=== PATIENT | female | born 1990 | race Asian ===

== ENCOUNTER 2018-10-11 12:24 | Inpatient (IN) | payer OTHER ==
[~2018-10-11] VITALS: Ht 157.5 cm; Wt 91.2 kg
[2018-10-11 12:33] VITALS: BP 107/73
--- NOTE | 2018-10-11 12:45 | NUR ---
ED Nurse Note: pt walked in due to skin rash on her armpit and groin area started 2 years ago, pt was advised by dr tona cortez for flap closure operation, pt complains 6/10 pain but tolerable as verbalized.
--- NOTE | 2018-10-11 13:07 | Emergency Room Report ---
History of Present Illness General Chief Complaint: Pain Source: Patient Present Illness HPI 28-year-old female presents to the emergency department complaining of 6 out of 10 severity pain, swelling, tenderness and irritation to the bilateral axilla x2 weeks. Patient has a history of adenitis suppurativa that has failed multiple outpatient oral antibiotics. She continues to have exacerbations of her symptoms. Denies fevers or chills and denies any significant past medical history or immunocompromise. No Aggravating or relieving factors at this time Allergies: Coded Allergies: No Known Allergies (Unverified , 10/11/18) Patient History Past Medical History: see triage record Past Surgical History: none Pertinent Family History: none Last Menstrual Period: 09/2018 Now: No Immunizations: UTD Reviewed Nursing Documentation: PMH: Agreed; PSxH: Agreed Nursing Documentation-PMH Past Medical History: No History, Except For Review of Systems All Other Systems: negative except mentioned in HPI Physical Exam Vital Signs Date Time Temp Pulse Resp B/P (MAP) Pulse Ox O2 Delivery O2 Flow Rate FiO2 10/11/18 12:33 98.1 67 20 107/73 98 Room Air Sp02 EP Interpretation: reviewed, normal General Appearance: no apparent distress, alert, GCS 15, non-toxic Head: normocephalic, atraumatic Eyes: bilateral eye normal inspection, bilateral eye PERRL ENT: hearing grossly normal, normal voice Neck: full range of motion Respiratory: lungs clear, normal breath sounds, speaking full sentences Cardiovascular #1: regular rate, rhythm Musculoskeletal: back normal, gait/station normal, normal range of motion, non- tender Neurologic: alert, oriented x3, responsive, motor strength/tone normal, sensory intact, speech normal, grossly normal Psychiatric: judgement/insight normal Skin: other - multiple small erythematious indurated abscesses in the axilla bilaterally. NO LAD. some draining purulent d/c. surround erythema is also noted. Lymphatic: no adenopathy Medical Decision Making PA Attestation Dr. Buck is my supervising Physician whom patient management has been discussed with. Diagnostic Impression: Primary Impression: Hidradenitis suppurativa of left axilla Additional Impressions: Hidradenitis suppurativa of right axilla Cellulitis of axillary region ER Course 28-year-old female presents to the emergency department complaining of 6 out of 10 severity pain, swelling, tenderness and irritation to the bilateral axilla x2 weeks. Patient has a history of adenitis suppurativa that has failed multiple outpatient oral antibiotics. She continues to have exacerbations of her symptoms. Denies fevers or chills and denies any significant past medical history or immunocompromise. No Aggravating or relieving factors at this time Ddx considered but are not limited to cellulitis, hydradenitis Suppurativa, fracture, d/L, gout, abscess Vital signs: are WNL, pt. is afebrile H&PE are most consistent with hydradenitis Suppurativa unresponsive to outpatient treatment, and requiring admission for surgical or IV abx management. ORDERS: -Gen. preop labwork: CBC, CMP, PT/PTT, Type and Screen. : Unremarkable. pt. Type A Positive. no leukocytosis. -Blood Cultures: Pending ED INTERVENTIONS: -None required at this time. DISPOSITION: at this time pt. will be admitted to Dr. Ruiz on behalf of Dr. Elkins for hydradenitis Suppurativa. Dr. Ruiz agreed to admit the pt. and to continue pt. care management. Labs Test 10/11/18 13:30 10/11/18 14:30 White Blood Count 9.0 K/UL (4.8-10.8) Red Blood Count 5.37 M/UL (4.20-5.40) Hemoglobin 11.5 G/DL (12.0-16.0) Hematocrit 37.8 % (37.0-47.0) Mean Corpuscular Volume 70 FL (80-99) Mean Corpuscular Hemoglobin 21.4 PG (27.0-31.0) Mean Corpuscular Hemoglobin Concent 30.5 G/DL (32.0-36.0) Red Cell Distribution Width 15.9 % (11.6-14.8) Platelet Count 342 K/UL (150-450) Mean Platelet Volume 7.5 FL (6.5-10.1) Neutrophils (%) (Auto) 70.1 % (45.0-75.0) Lymphocytes (%) (Auto) 21.5 % (20.0-45.0) Monocytes (%) (Auto) 4.8 % (1.0-10.0) Eosinophils (%) (Auto) 2.9 % (0.0-3.0) Basophils (%) (Auto) 0.7 % (0.0-2.0) Prothrombin Time 10.0 SEC (9.30-11.50) Prothromb Time International Ratio 0.9 (0.9-1.1) Activated Partial Thromboplast Time 26 SEC (23-33) Sodium Level 141 MMOL/L (136-145) Potassium Level 4.1 MMOL/L (3.5-5.1) Chloride Level 106 MMOL/L (98-107) Carbon Dioxide Level 23 MMOL/L (21-32) Anion Gap 12 mmol/L (5-15) Blood Urea Nitrogen 12 mg/dL (7-18) Creatinine 0.8 MG/DL (0.55-1.30) Estimat Glomerular Filtration Rate > 60 mL/min (>60) Glucose Level 88 MG/DL (74-106) Calcium Level 9.4 MG/DL (8.5-10.1) Total Bilirubin 0.7 MG/DL (0.2-1.0) Aspartate Amino Transf (AST/SGOT) 22 U/L (15-37) Alanine Aminotransferase (ALT/SGPT) 27 U/L (12-78) Alkaline Phosphatase 78 U/L (46-116) Total Protein 8.8 G/DL (6.4-8.2) Albumin 3.7 G/DL (3.4-5.0) Globulin 5.1 g/dL Albumin/Globulin Ratio 0.7 (1.0-2.7) Urine HCG, Qualitative Negative (NEGATIVE) Last Vital Signs Date Time Temp Pulse Resp B/P (MAP) Pulse Ox O2 Delivery O2 Flow Rate FiO2 10/11/18 12:33 98.1 67 20 107/73 (84) 98 Room Air Disposition: ADMITTED INPATIENT Condition: Connie Jiang Oct 11, 2018 13:07
--- NOTE | 2018-10-11 13:23 | NUR ---
ED Nurse Note: blood drawn and was sent to lab. iv started on left ac. will continue to monitor.
--- NOTE | 2018-10-11 14:00 | NUR ---
ED Nurse Note: pt asked if she can eat, ermd made aware and gave a go signal. pt is easting on upright position. will continue to monitor.
[2018-10-11 14:14] LABS: BASOPHILS % (AUTO) 0.7 % (0.0-2.0); EOSINOPHILS % (AUTO) 2.9 % (0.0-3.0); HEMATOCRIT 37.8 % (37.0-47.0); HEMOGLOBIN 11.5 G/DL (12.0-16.0); LYMPHOCYTES % (AUTO) 21.5 % (20.0-45.0); MEAN CORPUSCULAR VOLUME 70 FL (80-99); MONOCYTES % (AUTO) 4.8 % (1.0-10.0); NEUTROPHILS % (AUTO) 70.1 % (45.0-75.0); PLATELET COUNT 342 K/UL (150-450); RED BLOOD COUNT 5.37 M/UL (4.20-5.40); RED CELL DISTRIBUTION WIDTH 15.9 % (11.6-14.8)
[2018-10-11 14:18] LABS: ANION GAP 12 mmol/L (5-15); BLOOD UREA NITROGEN 12 mg/dL (7-18); CALCIUM 9.4 MG/DL (8.5-10.1); CARBON DIOXIDE 23 MMOL/L (21-32); CHLORIDE 106 MMOL/L (98-107); CREATININE 0.8 MG/DL (0.55-1.30); POTASSIUM 4.1 MMOL/L (3.5-5.1); SODIUM 141 MMOL/L (136-145)
[2018-10-11 14:20] LABS: INR 0.9 (0.9-1.1)
[2018-10-11 14:21] VITALS: BP 107/64
[2018-10-11 14:25] LABS: ALANINE AMINOTRANSFERASE 27 U/L (12-78); ALBUMIN 3.7 G/DL (3.4-5.0); ALBUMIN/GLOBULIN RATIO 0.7 (1.0-2.7); ALKALINE PHOSPHATASE 78 U/L (46-116); ASPARTATE AMINO TRANSFERASE 22 U/L (15-37); BILIRUBIN,TOTAL 0.7 MG/DL (0.2-1.0)
--- NOTE | 2018-10-11 15:00 | NUR ---
ED Nurse Note: pt is aware of the posible hospital admission
[2018-10-11 16:52] VITALS: BP 112/59
--- NOTE | 2018-10-11 16:58 | NUR ---
ED Nurse Note: pt is admitted to the hospital. report given to michelet velazquez.
--- NOTE | 2018-10-11 17:10 | NUR ---
NURSE NOTES: Patient came to unit by anjelica in stable condition. Alert and oriented x4. Complain of pain 6/10 on bilateral axillary. Will contact doctor for pain medication order. Hidradenitis on bilateral axillary and groin area. IV dressing intact and dry. Belonging checked with patient. Bed lowest position. Call light within reach. Will continue to monitor.
--- NOTE | 2018-10-11 17:50 | NUR ---
CASE MANAGEMENT: INITIAL REVIEW 28 YO F PRESENTED TO HOSPITAL FOR SURGERY PMHx: HIDRADENITIS SI:HIDRADENITIS T 98.1 HR 67 RR 20 B/P 107/73 SATS 98% ON RA LABS WNL IS: NO MEDS AT THIS TIME PATIENT ADMITTED TO MED/SURG 10/11/2018 @ 1658 DCP: PATIENT TO BE DISCHARGED TO HOME ONCE MEDICALLY CLEARED. PLAN OF CARE: SURGICAL CONSULT
[2018-10-11] MEDS ORDERED: oxyCODONE HCL/Acetaminophen 5/325mg ORAL PRN (18:30)
[2018-10-11] MEDS ORDERED: Morphine Sulfate 2mg/ml Inj(IV/IM USE ONLY) IVP PRN (18:30)
--- NOTE | 2018-10-11 18:32 | History and Physical ---
History of Present Illness General Date patient seen: Oct 11, 2018 Reason for Hospitalization: Pain and IV antibiotics Present Illness HPI 28 year old female with PMH of hidradenitis suppurativa presents with complaints of b/l axillary and b/l groin pain, swelling, tenderness, purulent discharge and irritation for past 2 weeks. Pt states she has had multiple courses of PO antibiotics with no improvement in symptoms. States usually oxycodone 5mg, helps relieve pain, however for past couple days pain still persist, rated as 6/10, no relieving factors. Pt denies fevers, chills, n/v/c/d , urinary complaints, abdominal complaints, chest pain or SOB. Pt can ambulate > 10 blocks and >4 flights of stairs with no limitations. Allergies: Coded Allergies: No Known Allergies (Unverified , 10/11/18) Patient History History Provided By: Patient Healthcare decision maker Resuscitation status Full Code Advanced Directive on File Review of Systems Constitutional: Reports: no symptoms Eye: Reports: no symptoms ENT: Reports: no symptoms Respiratory: Reports: no symptoms Cardiovascular: Reports: no symptoms Gastrointestinal: Reports: no symptoms Genitourinary: Reports: no symptoms Musculoskeletal: Reports: no symptoms Skin: Reports: lesions, other - swelling, tenderness, purulent discharge in b/ l axillary and groin area Psychiatric: Reports: no symptoms Neurological: Reports: no symptoms Endocrine: Reports: no symptoms Hematologic/Lymphatic: Reports: no symptoms Physical Exam General Appearance: WD/WN, no apparent distress, alert Lines, tubes and drains: peripheral HEENT: normocephalic, atraumatic Neck: non-tender, normal alignment Respiratory/Chest: chest wall non-tender, lungs clear, normal breath sounds Cardiovascular/Chest: normal peripheral pulses Abdomen: normal bowel sounds, non tender, soft Extremities: normal range of motion, non-tender, normal inspection Skin Exam: other - multiple erythematous tender abscess in b/l axillary and groin area. purulent discharge and odor noted. Neurologic: tipple supervisor II-XII grossly normal Last 24 Hour Vital Signs Date Time Temp Pulse Resp B/P (MAP) Pulse Ox O2 Delivery O2 Flow Rate FiO2 10/11/18 17:26 Room Air 10/11/18 16:58 98.1 72 12 112/59 100 Room Air 10/11/18 16:52 72 12 112/59 100 Room Air 10/11/18 14:21 75 15 107/64 98 Room Air 10/11/18 12:33 98.1 67 20 107/73 (84) 98 Room Air 10/11/18 12:33 98.1 67 20 107/73 98 Room Air Laboratory Tests Test 10/11/18 13:30 10/11/18 14:30 White Blood Count 9.0 K/UL (4.8-10.8) Red Blood Count 5.37 M/UL (4.20-5.40) Hemoglobin 11.5 G/DL (12.0-16.0) L Hematocrit 37.8 % (37.0-47.0) Mean Corpuscular Volume 70 FL (80-99) L Mean Corpuscular Hemoglobin 21.4 PG (27.0-31.0) L Mean Corpuscular Hemoglobin Concent 30.5 G/DL (32.0-36.0) L Red Cell Distribution Width 15.9 % (11.6-14.8) H Platelet Count 342 K/UL (150-450) Mean Platelet Volume 7.5 FL (6.5-10.1) Neutrophils (%) (Auto) 70.1 % (45.0-75.0) Lymphocytes (%) (Auto) 21.5 % (20.0-45.0) Monocytes (%) (Auto) 4.8 % (1.0-10.0) Eosinophils (%) (Auto) 2.9 % (0.0-3.0) Basophils (%) (Auto) 0.7 % (0.0-2.0) Prothrombin Time 10.0 SEC (9.30-11.50) Prothromb Time International Ratio 0.9 (0.9-1.1) Activated Partial Thromboplast Time 26 SEC (23-33) Sodium Level 141 MMOL/L (136-145) Potassium Level 4.1 MMOL/L (3.5-5.1) Chloride Level 106 MMOL/L (98-107) Carbon Dioxide Level 23 MMOL/L (21-32) Anion Gap 12 mmol/L (5-15) Blood Urea Nitrogen 12 mg/dL (7-18) Creatinine 0.8 MG/DL (0.55-1.30) Estimat Glomerular Filtration Rate > 60 mL/min (>60) Glucose Level 88 MG/DL (74-106) Calcium Level 9.4 MG/DL (8.5-10.1) Total Bilirubin 0.7 MG/DL (0.2-1.0) Aspartate Amino Transf (AST/SGOT) 22 U/L (15-37) Alanine Aminotransferase (ALT/SGPT) 27 U/L (12-78) Alkaline Phosphatase 78 U/L (46-116) Total Protein 8.8 G/DL (6.4-8.2) H Albumin 3.7 G/DL (3.4-5.0) Globulin 5.1 g/dL Albumin/Globulin Ratio 0.7 (1.0-2.7) L Urine HCG, Qualitative Negative (NEGATIVE) Height (Feet): 5 Height (Inches): 2.00 Weight (Pounds): 190 Medications Current Medications Medications (Trade) Dose Ordered Sig/Lalit Route PRN Reason Start Time Stop Time Status Last Admin Dose Admin Cefazolin Sodium 1 gm/Dextrose 55 ml @ 110 mls/hr Q8HR IVPB 10/11/18 22:00 10/18/18 21:59 UNV Dextrose (Dextrose 50%) 25 ml Q30M PRN IV Hypoglycemia 10/11/18 18:30 11/10/18 18:29 Dextrose (Dextrose 50%) 50 ml Q30M PRN IV Hypoglycemia 10/11/18 18:30 11/10/18 18:29 Morphine Sulfate (Morphine Sulfate) 1 mg Q6HR PRN IVP Severe Breakthru Pain (>7) 10/11/18 18:30 10/18/18 18:29 UNV Oxycodone/ Acetaminophen (Percocet 10/325) 1 tab Q4H PRN ORAL severe pain 10/11/18 18:30 10/18/18 18:29 Oxycodone/ Acetaminophen (Percocet 5-325) 1 tab Q4H PRN ORAL moderate pain 10/11/18 18:30 10/18/18 18:29 Assessment/Plan Assessment/Plan: 28 year old female with PMH of hidradenitis suppurativa presents with complaints of b/l axillary and b/l groin pain, swelling, tenderness, purulent discharge and irritation for past 2 weeks admitted to medicine service for IV antibiotics, pain control and possible surgical intervention. #Hidradenitis suppurativa #Intractable pain #Abscess -Surgury consulted for possible surgical intervention -Failed multiple courses of PO and IV ABX -Ancef started -Pain control with OXY 5/10 for mod/severe with Morphine IV for breakthrough pain -may need pain management consult if pain still not controlled #Medical clearance Based on the patients medical history, and other available ancilliary data, the patient is a LOW risk for an INTERMEDIATE risk procedure. Per the most recent ACC/AHA guidelines, the patient does not need any further cardiopulmonary testing prior to the procedure and there do not appear to be any clear medical contraindications to proceeding with the proposed procedure. Perioperating recommendations include IV Ancef 1G IVPB Post operative recommendations include: -Encourage mobilization/ ambulation -encourage incentive spirometer to optimize pulmonary hygiene -DVT/GI prophylaxis as appropriate -pain control and supportive care Full code TIme of note may not reflect time of encounter Eugenie Cosby MD Oct 11, 2018 18:32
--- NOTE | 2018-10-11 19:30 | NUR ---
NURSE NOTES: Received patient from CORNELIUS Mac. No distress noted, patient alert oriented. at bedside. Bed in low position, locked, side rails up x2, call light within reach. Patient ambulating without difficulty. Saline lock in LAC, patent and intact. Will continue to monitor.
--- NOTE | 2018-10-11 19:30 | NUR ---
HAND-OFF: Report given to Kanids SHIELDS. Patient in stable condition.
[2018-10-11 20:00] VITALS: BP 119/72
[2018-10-11] MEDS: ceFAZolin sod 1 GM in D5W 55 ML IVPB SCH (22:41)
[2018-10-12] VITALS (16 sets, daily range): BP systolic 92–149; BP diastolic 51–77
--- NOTE | 2018-10-12 01:30 | NUR ---
NURSE NOTES: Patient sleeping quietly.
[2018-10-12] MEDS: ceFAZolin sod 1 GM in D5W 55 ML IVPB SCH ×3 (05:49→21:26)
--- NOTE | 2018-10-12 06:03 | NUR ---
NURSE NOTES: Patient awake, alert. No distress noted, denies pain. IV intact, infusing antibiotic at this time.
--- NOTE | 2018-10-12 07:25 | NUR ---
NURSE NOTES:bedside rounds done,pt. asleep,room air,no distress noted.
--- NOTE | 2018-10-12 07:25 | NUR ---
HAND-OFF: Report given to CORNELIUS Issa. Patient sleeping.
--- NOTE | 2018-10-12 09:00 | NUR ---
NURSE NOTES:pt. awake,a/ox4,room air,remains npo for surgery,pt aware.ambulatory,no c/o pain.will continue plan of care.
[2018-10-12] MEDS ORDERED: EPINEPHrine 1mg/1ml Amp ONE (09:38)
[2018-10-12] MEDS ORDERED: Lidocaine 1% 10mg/ml/EPI 0.01mg/ml 50ml INJ ONE (09:39)
[2018-10-12] MEDS ORDERED: Bacitracin 50000 Units Vial ONE (09:39)
[2018-10-12] MEDS ORDERED: Lidocaine 1% 10mg/ml/Epi 0.005mg/ml 30ml vial INJ ONE ×2 (09:39→09:58)
[2018-10-12] MEDS ORDERED: NeoSporin Gu Irrig 1ml Amp IRRIG ONE ×3 (09:40→11:40)
--- NOTE | 2018-10-12 10:24 | NUR ---
NURSE NOTES:to surgery by bed,bedside handoff done with larissa(transporter tech),seen by dr. neely prior to molded goods spot picker.pt.stable.
[2018-10-12] MEDS ORDERED: fentaNYL 100 mcg/2 mL IV ONE (10:59)
[2018-10-12] MEDS ORDERED: Midazolam 2mg/2ml Inj ONE (10:59)
[2018-10-12] MEDS ORDERED: Lidocaine 1% MPF 10mg/ml 5ml ONE (11:01)
[2018-10-12] MEDS ORDERED: Propofol 200mg/20ml IV ONE (11:01)
[2018-10-12] MEDS ORDERED: Sodium Chloride 10ml vial INJ ONE (11:04)
--- NOTE | 2018-10-12 11:06 | Pre-Procedure Note/Attestation ---
Pre-Procedure Note/Attestation Complete Prior to Procedure Planned Procedure: bilateral Procedure Narrative: Debridement of bilateral axillae with chest wall flap elevation. Attestation I attest that I discussed the nature of the procedure; its benefits; risks and complications; and alternatives (and the risks and benefits of such alternatives ), prior to the procedure, with the patient (or the patient's legal quality assurance representative). I attest that, if there was a reasonable possibility of needing a blood transfusion, the patient (or the patient's legal quality assurance representative) was given the [facility] standardized written summary, pursuant to the [place] Blood Safety Act ([place] Health and Safety Code # 1645, as amended). I attest that I re-evaluated the patient just prior to the surgery and that there has been no change in the patient's H&P, except as documented below: Ceci Rodriguez MD Oct 12, 2018 11:06
--- NOTE | 2018-10-12 11:08 | NUR ---
CASE MANAGEMENT:REVIEW 10/12/18 SI: HIDRADENITIS 97.9 79 20 107/70 99% ON RA IS: TO SURGERY FOR: BILATERAL AXILLARY DEBRIDEMENT W/FLAP ELEVATION IV ANCEF Q8HRS PERCOCET PO Q4HRS PRN : TO MED/SURG 3 EAST POST OP
[2018-10-12] MEDS ORDERED: TransDerm Scop 1mg/72HR Patch TDERMAL ONE ×2 (11:12→12:45)
[2018-10-12] MEDS ORDERED: Zemuron 50mg/5ml Inj IV ONE (11:13)
[2018-10-12] MEDS ORDERED: DiphenhydrAMINE 50mg/ml Inj IVP PRN ×2 (11:15→12:45)
[2018-10-12] MEDS ORDERED: Metoclopramide 10mg/2ml Inj IVP PRN ×2 (11:15→12:45)
[2018-10-12] MEDS ORDERED: Rate Change PCA 1 Each MISC PRN (11:15)
[2018-10-12] MEDS ORDERED: PCA Education Pamphlet MISC ONE (11:15)
[2018-10-12] MEDS ORDERED: Zolpidem 5mg tab ORAL PRN (11:15)
[2018-10-12] MEDS ORDERED: Bacitracin 50000 Units Vial IRRIG ONE ×2 (11:16→11:40)
[2018-10-12] MEDS ORDERED: NS Irrig 2000ml IRRIG ONE ×2 (11:17→11:40)
[2018-10-12] MEDS ORDERED: NS Irrig 1000ml ONE (12:00)
[2018-10-12] MEDS ORDERED: Neostigmine 1mg/ml 10ml Inj ONE (12:00)
[2018-10-12] MEDS ORDERED: LR 1000ml ONE (12:00)
[2018-10-12] MEDS ORDERED: Sterile Water Irrig 1000ml IRRIG ONE (12:00)
[2018-10-12] MEDS ORDERED: Morphine Sulfate 10mg/ml Inj ONE (12:13)
[2018-10-12] MEDS ORDERED: Ketorolac 30mg Inj ONE (12:18)
[2018-10-12] MEDS ORDERED: Glycopyrrolate 0.2mg/ml 1ml Vial ONE (12:18)
--- NOTE | 2018-10-12 12:31 | Anethesia Preoperative Eval ---
Anesthesia Pre-op PMH/ROS General Date of Evaluation: Oct 12, 2018 Time of Evaluation: 11:10 Anesthesiologist: Josr ASA Score: ASA 2 Mallampati Score Class I : Soft palate, uvula, fauces, pillars visible Class II: Soft palate, uvula, fauces visible Class III: Soft palate, base of uvula visible Class IV: Only hard plate visible Mallampati Classification: Class II Surgeon: Jennifer Diagnosis: Bilateral axillary HS Surgical Procedure: Excision of bilateral axillary HS Anesthesia History: none Family History: no anesthesia problems Allergies: Coded Allergies: No Known Allergies (Unverified , 10/11/18) Medications: see eMAR Patient NPO?: Yes NPO Date: Oct 12, 2018 NPO Time: 0000 Past Medical History Cardiovascular: Denies: HTN, CAD, CA, valve dz, arrhythmia, other Pulmonary: Denies: asthma, COPD, NICK, other Gastrointestinal/Genitourinary: Denies: GERD, CRI, ESRD, other Neurologic/Psychiatric: Reports: depression/anxiety; Denies: dementia, CVA, TIA, other Endocrine: Denies: DM, hypothyroidism, steroids, other HEENT: Denies: cataract (L), cataract (R), glaucoma, [place] D'ALENE (L), CO[place]UR [place]'ALENE (R), other Hematology/Immune: Denies: anemia, DVT, bleeding disorder, other Musculoskeletal/Integumentary: Denies: OA, RA, DJD, DDD, edema, other Other: obesity PMH Narrative: as above PSxH Narrative: T&A Anesthesia Pre-op Phys. Exam Physician Exam Last Vital Signs Date Time Temp Pulse Resp B/P (MAP) Pulse Ox O2 Delivery O2 Flow Rate FiO2 10/12/18 09:00 Room Air 10/12/18 07:39 97.9 79 20 107/70 (82) 99 Constitutional: NAD Neurologic: CN 2-12 intact Cardiovascular: RRR, no M/R/G Respiratory: CTA Gastrointestinal: S/NT/ND Airway Exam Mallampati Score: Class II MO: full Neck: flexible ROM: full Teeth: intact Dentures: no upper, no lower Anesthesia Pre-op A/P Labs Hematology Test 10/11/18 13:30 White Blood Count 9.0 K/UL (4.8-10.8) Red Blood Count 5.37 M/UL (4.20-5.40) Hemoglobin 11.5 G/DL (12.0-16.0) L Hematocrit 37.8 % (37.0-47.0) Mean Corpuscular Volume 70 FL (80-99) L Mean Corpuscular Hemoglobin 21.4 PG (27.0-31.0) L Mean Corpuscular Hemoglobin Concent 30.5 G/DL (32.0-36.0) L Red Cell Distribution Width 15.9 % (11.6-14.8) H Platelet Count 342 K/UL (150-450) Mean Platelet Volume 7.5 FL (6.5-10.1) Neutrophils (%) (Auto) 70.1 % (45.0-75.0) Lymphocytes (%) (Auto) 21.5 % (20.0-45.0) Monocytes (%) (Auto) 4.8 % (1.0-10.0) Eosinophils (%) (Auto) 2.9 % (0.0-3.0) Basophils (%) (Auto) 0.7 % (0.0-2.0) Coagulation Test 10/11/18 13:30 Prothrombin Time 10.0 SEC (9.30-11.50) Prothromb Time International Ratio 0.9 (0.9-1.1) Activated Partial Thromboplast Time 26 SEC (23-33) Chemistry Test 10/11/18 13:30 Sodium Level 141 MMOL/L (136-145) Potassium Level 4.1 MMOL/L (3.5-5.1) Chloride Level 106 MMOL/L (98-107) Carbon Dioxide Level 23 MMOL/L (21-32) Anion Gap 12 mmol/L (5-15) Blood Urea Nitrogen 12 mg/dL (7-18) Creatinine 0.8 MG/DL (0.55-1.30) Estimat Glomerular Filtration Rate > 60 mL/min (>60) Glucose Level 88 MG/DL (74-106) Calcium Level 9.4 MG/DL (8.5-10.1) Total Bilirubin 0.7 MG/DL (0.2-1.0) Aspartate Amino Transf (AST/SGOT) 22 U/L (15-37) Alanine Aminotransferase (ALT/SGPT) 27 U/L (12-78) Alkaline Phosphatase 78 U/L (46-116) Total Protein 8.8 G/DL (6.4-8.2) H Albumin 3.7 G/DL (3.4-5.0) Globulin 5.1 g/dL Albumin/Globulin Ratio 0.7 (1.0-2.7) L Urine Test Test 10/11/18 14:30 Urine HCG, Qualitative Negative (NEGATIVE) Risk Assessment & Plan Assessment: ASA 2 Plan: GA with ETT PONV prevention Status Change Before Surgery: No Pre-Antibiotics Drug: Ancef 2gr Given Within 1 Hr of Incision: Yes Time Given: 12:02 Gus Ovalles MD Oct 12, 2018 12:31
[2018-10-12] MEDS ORDERED: LR 1000ml 1,000 ML IVLG SCH (12:32)
[2018-10-12] MEDS ORDERED: Ketorolac 30mg Inj IV PRN (12:45)
[2018-10-12] MEDS ORDERED: Midazolam 2mg/2ml Inj IVP PRN (12:45)
[2018-10-12] MEDS ORDERED: Meperidine 50mg/ml Inj(FOR RIGORS ONLY) IV PRN (12:45)
[2018-10-12] MEDS ORDERED: Hydromorphone 0.5mg/0.5ml inj IVP PRN (12:45)
[2018-10-12] MEDS ORDERED: Acetaminophen (Non formulary) 100 ML IV ONE (12:45)
[2018-10-12] MEDS ORDERED: PCA HYDROmorphone 1mg/ml 30 ML IV PRN (13:00)
--- NOTE | 2018-10-12 13:47 | Operative Note - PDOC ---
Operative Note Operative Note Pre-op Diagnosis: Bilateral axillary hidradenitis Procedure: Radical excision of bilateral axillary tissue with chest wall flap elevation Post-op Diagnosis: same as pre-op Surgeon: Jennifer Arcade Technician: Bell Anesthesia: general Specimen: yes Complications: none Estimated Blood Loss: minimal Drains: none Implant(s) used?: No Ceci Rodriguez MD Oct 12, 2018 13:47
--- NOTE | 2018-10-12 13:56 | Immediate Post-Op Evaluation ---
Immediate Post-Op Evalulation Immediate Post-Op Evalulation Procedure: Excision of bilateral axillary HS Date of Evaluation: Oct 12, 2018 Time of Evaluation: 13:54 IV Fluids: 1000 Blood Products: none Estimated Blood Loss: 50 Urinary Output: none Blood Pressure Systolic: 146 Blood Pressure Diastolic: 67 Pulse Rate: 81 Respiratory Rate: 22 O2 Sat by Pulse Oximetry: 99 Temperature (Fahrenheit): 97.5 Pain Score (1-10): 1 Nausea: No Vomiting: No Complications none Patient Status: reacts, patent, extubated, none Hydration Status: adequate Gus Ovalles MD Oct 12, 2018 13:56
--- NOTE | 2018-10-12 15:30 | NUR ---
NURSE NOTES:Received pt. fr.pacu by bed s/p bilateral axillary debridement with flap elevation under general anesthesia,surgical dressing c/d/i.report given by devon velazquez.pt.awake,a/ox4,with 2 liters n/c,saline lock on left ac.intact,with iv fluid and channel rebuilder on left foot #20,per rn,(anesthesiologist)inserted and its okay to use.pain level 4/10,channel rebuilder education provided and understood,moving all extremities.
--- NOTE | 2018-10-12 16:05 | NUR ---
*-* INSURANCE *-* ALL CLINICALS HAVE BEEN FAXED TO: [facility] F:[phone]
--- NOTE | 2018-10-12 16:45 | Consultation ---
DATE OF CONSULTATION: 10/12/2018 CONSULTING PHYSICIAN: Ceci Rodriguez M.D. ADMITTING PHYSICIAN: Dr. Eugenie Perrin. ADMITTING DIAGNOSIS: Bilateral axillary hidradenitis, actively infected. HISTORY OF PRESENT ILLNESS: This is a 28-year-old female, who presented to the emergency room with bilateral axillary pain and drainage along with groin pain and drainage secondary to hidradenitis suppurativa. She had recently been in the emergency room several weeks ago for IV antibiotics and her symptoms are unchanged with continuous pain and drainage from these areas. PAST MEDICAL HISTORY: Significant for hidradenitis suppurativa. PAST SURGICAL HISTORY: Includes previous incisions and drainage of her lesions. ALLERGIES: None. MEDICATIONS: Include previous history of Humira for her hidradenitis suppurativa. PHYSICAL EXAMINATION: GENERAL: The patient is alert and oriented x3. HEART: Regular rate and rhythm. ABDOMEN: Soft, nontender, and nondistended. SKIN: Examination of her bilateral axilla reveals stage III advanced hidradenitis suppurativa with tenderness in the entirety of the axilla with active drainage and cellulitis in between the abscesses. This is present on both sides. She also has evidence of active disease in her bilateral groin regions with tenderness along both groins in particular with worse symptoms on the left groin. ASSESSMENT AND PLAN: This is a 28-year-old female with advanced hidradenitis suppurativa with active infection. She will be taken to the operating room today for radical debridement of the bilateral axillary tissue with a staged elevation of a chest wall thoracodorsal artery flap for eventual reconstruction of her axillary wounds. Given the level of infection present, it is more likely that we would have to delay the closure anywhere from three to five days to allow for some of the infection within the wound to clear by way of IV antibiotics and dressing changes prior to definitive flap inset. This was discussed in detail with the patient. She understands the risks and benefits of the treatment plan and she has agreed to proceed. Ceci Rodriguez M.D. DR: DOMINICK JOB#: [id number] CC: SAMINA
[2018-10-12] MEDS: Docusate 100mg cap ORAL SCH (17:26)
--- NOTE | 2018-10-12 18:00 | Operative Note - Dictated ---
DATE OF OPERATION: 10/12/2018 PREOPERATIVE DIAGNOSIS: Bilateral stage III infected advanced axillary hidradenitis suppurativa. POSTOPERATIVE DIAGNOSIS: Bilateral stage III infected advanced axillary hidradenitis suppurativa. PROCEDURES: 1. Radical excision of left axillary tissue bearing hidradenitis suppurativa. 2. Elevation of a pedicled chest wall thoracodorsal artery country director flap. 3. Radical excision of right axillary tissue bearing infected hidradenitis suppurativa. 4. Elevation of a right-sided thoracodorsal artery pedicled chest wall flap. SURGEON: Ceci Rodriguez M.D. NPS: Marilyn Luu M.D. ANESTHESIA: General. COMPLICATIONS: None. DRAINS: None. DISPOSITION: Stable to the recovery room. INDICATIONS FOR SURGERY: This is a 28-year-old female, who presented to the hospital with advanced hidradenitis suppurativa, which was infected with drainage and purulence and pain in both axillary regions. She was admitted by the medical team and upon my evaluation, I felt that she was an appropriate candidate for radical excision of the infected tissue with staged reconstruction using chest wall flaps. Given the presence of the infection, she was not deemed a suitable candidate for immediate reconstruction. As such, she was consented to undergo radical debridement with staged flap elevation for subsequent reconstruction. She understood the risks and benefits of surgery and agreed to proceed. DETAILS OF THE OPERATION: The patient was brought to the operating room and laid in the supine position on the operating room table. Her bilateral axillae and upper chest were prepped and draped in a sterile and usual fashion. We first began on the left side. Her left axilla had a significant amount of disease with active infection. A marking pen was used to delineate the area of disease at its widest point and measured 15 centimeters and at its smallest point it measured 20 centimeters. Thus this was a 300 square cm of diseased tissue that had to be removed. Corresponding lateral chest wall flap was designed to allow for coverage of this wound. The flap on this side measured 20 x 10 centimeters to allow for soft tissue coverage of the flap of the defect once the defect was created. Once the obregon were made, a #10 blade was used to make the skin incision around the axillary tissue and then the electrocautery was used to further dissect down all the way to the level of the axillary fascia. The specimen was removed en bloc leaving a large axillary defect following hemostasis. The lateral brachial skin as well as the anterior chest wall skin extending into the deltoid region were all elevated to allow for further mobility of the tissue for staged closure once the flap from the chest wall was to be transposed into the defect. Once all the tissues were mobilized, we then turned our attention to elevating the chest wall flap. A #10 blade was then used to make the U-shaped skin incision all the way around the flap. Dissection was carried down to the level of the latissimus muscle fascia. The fascia was then incised and elevated with the pedicled flap all the way to its most proximal point. Once the flap was fully mobilized, we were able to transpose it into the defect and along with the mobilized skin in the periphery of the wound itself, we were able to achieve a tension-free definitive closure of the wound; however, as stated earlier because this was a significantly infected wound, we decided that it would not be cerna to perform immediate reconstruction at this time. As such, the flap was then transposed back to its donor site and once hemostasis was achieved with the remainder of the wound, we placed the Surgicel in the wound bed and bulky dressings were applied on this side with a plan of coming back to the operating room within 3 to 5 days for definitive flap closure with flap inset. We then turned our attention to the right axilla. This had a similar area of disease measuring 16 x 19 centimeters. A corresponding flap as was done on the other side was designed on the lateral chest wall. A #10 blade was used to make the skin incision around the infected axillary tissue. Dissection was carried down with the electrocautery down to the axillary fascia. The specimen was removed en bloc. Similarly, the brachial as well as deltoid and anterior chest wall skin flaps were elevated to allow for further mobility of the tissue for eventual entral closure and once hemostasis was achieved, a lateral chest wall flap was then elevated based on the design that was created. This one measured also 10 x 18 centimeters. A #10 blade was used to make a skin incision. Electrocautery was then used to dissect down to the level of the latissimus muscle fascia. The fascia was incised and elevated with a thoracodorsal artery country director flap. Once the flap was fully mobilized, noted to fit in well into the defect as was done on the other side, hemostasis was achieved. Surgicel was then placed. The flap was then put back into its donor site with a plan on coming back to the operating room in 3 to 5 days for definitive flap inset. Bulky dressings were also applied on this side and all sponge counts were correct at the end of the case. There was no complications. Ceci Rodriguez M.D. DR: MAXIMO JOB#: [id number] CC: SAMINA
[2018-10-12] MEDS: PCA shift volume MISC SCH (19:17)
--- NOTE | 2018-10-12 19:22 | NUR ---
HAND-OFF: Report given to PATY SHIELDS.PT.STABLE..
--- NOTE | 2018-10-12 19:23 | NUR ---
NURSE NOTES: Received report from CORNELIUS Issa. Patient alert, oriented, bed in low position, locked, side rails up x2, call light within reach. at bedside. LEGAL COUNSEL settings double checked with offgoing shift nurse. No complaints at this time. Encouraged PO fluids. Will continue to monitor.
[2018-10-12] MEDS ORDERED: Tubing IV Secondary IV ONE (19:26)
[2018-10-12] MEDS ORDERED: NS 275ml ONE (19:26)
--- NOTE | 2018-10-12 20:29 | General Progress Note ---
Assessment/Plan Assessment/Plan: 28 year old female with PMH of hidradenitis suppurativa presents with complaints of b/l axillary and b/l groin pain, swelling, tenderness, purulent discharge and irritation for past 2 weeks admitted to medicine service for IV antibiotics, pain control and possible surgical intervention. #Hidradenitis suppurativa #Intractable pain #Abscess -Surgury consult appreciated - Plan for radical excision of B/L axillary tissue bearing hidradenitis suppurativa today -Failed multiple courses of PO and IV ABX -Ancef started -Pain control with OXY 5/10 for mod/severe with Morphine IV for breakthrough pain -may need pain management consult if pain still not controlled #Medical clearance Based on the patients medical history, and other available ancilliary data, the patient is a LOW risk for an INTERMEDIATE risk procedure. Per the most recent ACC/AHA guidelines, the patient does not need any further cardiopulmonary testing prior to the procedure and there do not appear to be any clear medical contraindications to proceeding with the proposed procedure. Perioperating recommendations include IV Ancef 1G IVPB Post operative recommendations include: -Encourage mobilization/ ambulation -encourage incentive spirometer to optimize pulmonary hygiene -DVT/GI prophylaxis as appropriate -pain control and supportive care Full code TIme of note may not reflect time of encounter Subjective Date patient seen: Oct 12, 2018 Time patient seen: 08:00 ROS Limited/Unobtainable: No Allergies: Coded Allergies: No Known Allergies (Unverified , 10/11/18) Subjective No acute overnight events, states she feels well, just a little nervous about upcoming procedure. has no other complaints, pain adequately controlled with current regimen Objective Last 24 Hour Vital Signs Date Time Temp Pulse Resp B/P (MAP) Pulse Ox O2 Delivery O2 Flow Rate FiO2 10/12/18 18:00 98.2 66 20 138/58 (84) 99 10/12/18 17:00 98.0 83 20 116/67 (83) 99 10/12/18 16:00 98.0 68 20 141/70 (93) 99 10/12/18 15:30 97.8 69 20 133/76 (95) 99 10/12/18 15:30 17 10/12/18 15:30 17 10/12/18 15:15 97.5 60 19 146/57 100 Nasal Cannula 3 10/12/18 15:13 17 10/12/18 15:13 67 15 134/66 100 Nasal Cannula 3 10/12/18 15:00 18 10/12/18 15:00 75 16 142/62 100 Nasal Cannula 3 10/12/18 14:45 61 14 144/64 100 Nasal Cannula 3 10/12/18 14:45 19 10/12/18 14:30 16 10/12/18 14:30 64 19 149/69 100 Simple Mask 6 10/12/18 14:15 15 10/12/18 14:15 68 17 144/61 100 Simple Mask 6 10/12/18 14:04 17 10/12/18 14:00 78 20 142/77 100 Simple Mask 6 10/12/18 13:56 81 22 99 10/12/18 13:50 97.6 80 22 147/76 100 Simple Mask 6 10/12/18 09:00 Room Air 10/12/18 07:39 97.9 79 20 107/70 (82) 99 10/12/18 04:00 98.1 67 18 92/51 (65) 96 10/12/18 00:00 98.2 93 18 122/75 (91) 99 10/11/18 21:00 Room Air Intake and Output 10/11/18 10/12/18 19:00 07:00 Intake Total 350 ml Balance 350 ml Intake Oral 350 ml # Voids 3 Height (Feet): 5 Height (Inches): 2.00 Weight (Pounds): 203 Objective General Appearance: WD/WN, no apparent distress, alert Lines, tubes and drains: peripheral HEENT: normocephalic, atraumatic Neck: non-tender, normal alignment Respiratory/Chest: chest wall non-tender, lungs clear, normal breath sounds Cardiovascular/Chest: normal peripheral pulses Abdomen: normal bowel sounds, non tender, soft Extremities: normal range of motion, non-tender, normal inspection Skin Exam: other - multiple erythematous tender abscess in b/l axillary and groin area. purulent discharge and odor noted. 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
[2018-10-12] MEDS: Heparin 5000 units/ml inj SUBQ SCH (21:29)
--- NOTE | 2018-10-12 22:52 | NUR ---
NURSE NOTES: Small section of left underarm dressing came off, noticed serous sanguineous discharge, no active bleeding. Dressing reinforced. Patient tolerated well. Right underarm dressing intact and dry. Will continue to monitor.
--- NOTE | 2018-10-12 23:14 | NUR ---
NURSE NOTES: Patient used bedpan, voided large amount.
[2018-10-13] VITALS: BP 130/63
--- NOTE | 2018-10-13 00:10 | NUR ---
NURSE NOTES: Patient feeling well. States pain is 0/10 at this time. In good spirits, dressing intact, feels comfortable. Encouraged to call as needed.
[2018-10-13 04:00] VITALS: BP 113/61
[2018-10-13 06:32] LABS: BASOPHILS % (AUTO) 0.5 % (0.0-2.0); EOSINOPHILS % (AUTO) 3.6 % (0.0-3.0); HEMATOCRIT 31.9 % (37.0-47.0); HEMOGLOBIN 9.9 G/DL (12.0-16.0); MEAN CORPUSCULAR VOLUME 70 FL (80-99); NEUTROPHILS % (AUTO) 67.9 % (45.0-75.0); PLATELET COUNT 281 K/UL (150-450); RED BLOOD COUNT 4.53 M/UL (4.20-5.40); RED CELL DISTRIBUTION WIDTH 16.4 % (11.6-14.8); WHITE BLOOD COUNT 7.9 K/UL (4.8-10.8)
[2018-10-13] MEDS: ceFAZolin sod 1 GM in D5W 55 ML IVPB SCH ×3 (06:38→21:40)
[2018-10-13 06:45] LABS: ANION GAP 5 mmol/L (5-15); BLOOD UREA NITROGEN 8 mg/dL (7-18); CALCIUM 8.4 MG/DL (8.5-10.1); CARBON DIOXIDE 23 MMOL/L (21-32); CHLORIDE 108 MMOL/L (98-107); CREATININE 0.8 MG/DL (0.55-1.30); POTASSIUM 3.7 MMOL/L (3.5-5.1); SODIUM 136 MMOL/L (136-145)
[2018-10-13] MEDS: PCA shift volume MISC SCH ×2 (07:08→19:00)
--- NOTE | 2018-10-13 07:10 | NUR ---
NURSE NOTES:Bedside rounds with night nurse(debbie velazquez.)pt.awake,a/ox4,room air,on quality coordinator dilaudid for pain mgt. pain level 4/10,bilateral axilla dressing c/d/i.will continue plan of care.
--- NOTE | 2018-10-13 07:10 | NUR ---
HAND-OFF: Report given to CORNELIUS Issa. NEGOTIATOR reviewed with oncoming nurse.
[2018-10-13 08:00] VITALS: BP 123/55
[2018-10-13] MEDS: Docusate 100mg cap ORAL SCH ×2 (08:21→18:02)
[2018-10-13] MEDS: Heparin 5000 units/ml inj SUBQ SCH ×2 (08:23→21:35)
[2018-10-13 12:00] VITALS: BP 130/55
--- NOTE | 2018-10-13 12:21 | General Progress Note ---
Progress Note Progress Note Pt seen and examined. Doing well. Pain well controlled. Dressings in place. Will go to OR on Wednesday for flap inset. Awating path and wound cultures. ID to see patient. MD Jennifer Carlson Amir MD Oct 13, 2018 12:21
--- NOTE | 2018-10-13 12:34 | 48 Hour Post Anesthesia Eval ---
Post Anesthesia Evaluation Procedure: Excision of bilateral axillary HS Date of Evaluation: Oct 13, 2018 Time of Evaluation: 12:33 Blood Pressure Systolic: 124 0: 76 Pulse Rate: 68 Respiratory Rate: 20 Temperature (Fahrenheit): 97.6 O2 Sat by Pulse Oximetry: 98 Airway: patent Nausea: No Vomiting: No Pain Intensity: 2 Hydration Status: adequate Cardiopulmonary Status: stable Mental Status/LOC: patient returned to baseline Follow-up Care/Observations: n/a Post-Anesthesia Complications: none Follow-up care needed: N/A Gus Ovalles MD Oct 13, 2018 12:34
--- NOTE | 2018-10-13 12:54 | NUR ---
NURSE NOTES:FOR PT CHRISTINE (PT) MADE AWARE.
--- NOTE | 2018-10-13 13:00 | Infectious Diseases Prog Note ---
Assessment/Plan Assessment/Plan Full dictated consult to follow: A) 1) bilateral axilla infected hidradenitis suppurativa with bilateral infected wounds 2) s/p hidradenitis excision and debridement 3) allergies - nkda P) 1) continue iv cefazolin 2) f/u on cultures 3) surgery note reviewed - for flap next week 4) continue treatment per primary care team 5) thank you Subjective Allergies: Coded Allergies: No Known Allergies (Unverified , 10/11/18) Objective Vital Signs Last 24 Hour Vital Signs Date Time Temp Pulse Resp B/P (MAP) Pulse Ox O2 Delivery O2 Flow Rate FiO2 10/13/18 12:34 68 20 98 10/13/18 12:00 98.6 63 18 130/55 (80) 99 10/13/18 12:00 18 10/13/18 08:00 97.2 65 18 123/55 (77) 98 10/13/18 08:00 18 10/13/18 07:18 Room Air 10/13/18 04:00 98.7 81 20 113/61 (78) 97 10/13/18 04:00 18 10/13/18 00:00 98.0 75 20 130/63 (85) 99 10/13/18 00:00 16 10/12/18 21:00 Room Air 10/12/18 20:00 98.0 71 18 123/64 (83) 98 10/12/18 20:00 18 10/12/18 18:00 98.2 66 20 138/58 (84) 99 10/12/18 17:00 98.0 83 20 116/67 (83) 99 10/12/18 16:00 98.0 68 20 141/70 (93) 99 10/12/18 15:30 97.8 69 20 133/76 (95) 99 10/12/18 15:30 17 10/12/18 15:30 17 10/12/18 15:15 97.5 60 19 146/57 100 Nasal Cannula 3 10/12/18 15:13 17 10/12/18 15:13 67 15 134/66 100 Nasal Cannula 3 10/12/18 15:00 18 10/12/18 15:00 75 16 142/62 100 Nasal Cannula 3 10/12/18 14:45 61 14 144/64 100 Nasal Cannula 3 10/12/18 14:45 19 7/10/19 14:30 16 10/12/18 14:30 64 19 149/69 100 Simple Mask 6 10/12/18 14:15 15 10/12/18 14:15 68 17 144/61 100 Simple Mask 6 10/12/18 14:04 17 10/12/18 14:00 78 20 142/77 100 Simple Mask 6 10/12/18 13:56 81 22 99 10/12/18 13:50 97.6 80 22 147/76 100 Simple Mask 6 Height (Feet): 5 Height (Inches): 2.00 Weight (Pounds): 203 Microbiology Date/Time Source Procedure Growth Status 10/11/18 13:58 Blood Blood Culture - Preliminary NO GROWTH AFTER 24 HOURS Resulted 10/11/18 13:58 Blood Blood Culture - Preliminary NO GROWTH AFTER 24 HOURS Resulted 10/12/18 12:58 Axilla Right Gram Stain - Final Resulted 10/12/18 12:58 Axilla Right Aerobic Culture - Preliminary NO GROWTH Resulted 10/12/18 12:58 Axilla Right Anaerobic Culture Pending Resulted Laboratory Tests Test 10/13/18 05:55 White Blood Count 7.9 K/UL (4.8-10.8) Red Blood Count 4.53 M/UL (4.20-5.40) Hemoglobin 9.9 G/DL (12.0-16.0) L Hematocrit 31.9 % (37.0-47.0) L Mean Corpuscular Volume 70 FL (80-99) L Mean Corpuscular Hemoglobin 21.8 PG (27.0-31.0) L Mean Corpuscular Hemoglobin Concent 30.9 G/DL (32.0-36.0) L Red Cell Distribution Width 16.4 % (11.6-14.8) H Platelet Count 281 K/UL (150-450) Mean Platelet Volume 7.6 FL (6.5-10.1) Neutrophils (%) (Auto) 67.9 % (45.0-75.0) Lymphocytes (%) (Auto) 23.0 % (20.0-45.0) Monocytes (%) (Auto) 5.0 % (1.0-10.0) Eosinophils (%) (Auto) 3.6 % (0.0-3.0) H Basophils (%) (Auto) 0.5 % (0.0-2.0) Sodium Level 136 MMOL/L (136-145) Potassium Level 3.7 MMOL/L (3.5-5.1) Chloride Level 108 MMOL/L (98-107) H Carbon Dioxide Level 23 MMOL/L (21-32) Anion Gap 5 mmol/L (5-15) Blood Urea Nitrogen 8 mg/dL (7-18) Creatinine 0.8 MG/DL (0.55-1.30) Estimat Glomerular Filtration Rate > 60 mL/min (>60) Glucose Level 106 MG/DL (74-106) Calcium Level 8.4 MG/DL (8.5-10.1) L Current Medications Medications (Trade) Dose Ordered Sig/Lalit Route PRN Reason Start Time Stop Time Status Last Admin Dose Admin Acetaminophen (Tylenol) 650 mg Q4H PRN ORAL FEVER 10/12/18 11:15 11/11/18 11:14 10/13/18 08:25 Cefazolin Sodium 1 gm/Dextrose 55 ml @ 110 mls/hr Q8HR IVPB 10/11/18 22:00 10/18/18 21:59 10/13/18 06:38 Dextrose (Dextrose 50%) 25 ml Q30M PRN IV Hypoglycemia 10/11/18 18:30 11/10/18 18:29 Dextrose (Dextrose 50%) 50 ml Q30M PRN IV Hypoglycemia 10/11/18 18:30 11/10/18 18:29 Diphenhydramine HCl (Benadryl) 12.5 mg Q6H PRN IVP Itching/Pruritis 10/12/18 11:15 11/11/18 11:14 Docusate Sodium (Colace) 100 mg TWICE A DAY ORAL 10/12/18 18:00 11/11/18 17:59 10/13/18 08:21 Heparin Sodium (Porcine) (Heparin 5000 units/ml) 5,000 units EVERY 12 HOURS SUBQ 10/12/18 21:00 11/11/18 20:59 10/13/18 08:23 Hydromorphone HCl 30 ml @ 0 mls/hr Q24H PRN IV For Pain 10/12/18 13:00 10/14/18 12:59 10/12/18 14:04 Metoclopramide HCl (Reglan) 10 mg Q6H PRN IVP Nausea & Vomiting 10/12/18 11:15 11/11/18 11:14 Miscellaneous Medication (TIRE STRIPPER Rate Change) 1 ea DAILY PRN MISC rate change 10/12/18 11:15 10/14/18 11:14 Miscellaneous Medication (TIRE STRIPPER shift volume) 1 ea Q12HR@0700,1900 MISC 10/12/18 19:00 10/14/18 18:59 10/13/18 07:08 Ondansetron HCl (Zofran) 4 mg Q6H PRN IVP Nausea & Vomiting 10/12/18 11:15 11/11/18 11:14 Zolpidem Tartrate (Ambien) 5 mg DAILYPRN PRN ORAL Insomnia 10/12/18 11:15 10/19/18 11:14 Nate Gomes MD Oct 13, 2018 13:00
--- NOTE | 2018-10-13 13:25 | NUR ---
NURSE NOTES: Report received from Maegan SHIELDS, rounds made. Patient resting in semi-fowlers position in bed. IVF/SPECIFICATION MANAGER (Dilaudid) infusing to left foot IV site intact, patent. Bilateral axillary/upper back dressing, intact, reinforced. No distress on RA. Tolerating SPECIFICATION MANAGER pump at this time. Call light in reach, bed in lowest position, will continue to monitor.
--- NOTE | 2018-10-13 13:47 | NUR ---
HAND-OFF: Report given to JULIO SHIELDS.RE:CONTINUITY OF CARE.BEDSIDE ROUNDS DONE.PT. STABLE.
--- NOTE | 2018-10-13 14:54 | NUR ---
CASE MANAGEMENT:REVIEW 10/13/18 SI: POD #1 RADICAL EXCISION OF LT AXILLARY TISSUE 98.6 63 18 130/55 99% ON RA H/H-9.9/31.9 IS: IV ANCEF Q8HRS HEPARIN SQ Q12 LEGAL INVESTIGATOR DILAUDID : MED/SURG STATUS 3 [facility]
[2018-10-13 16:00] VITALS: BP 116/55
--- NOTE | 2018-10-13 16:08 | NUR ---
*-* INSURANCE *-* ALL CLINICALS [facility] BE[facility] F:[phone]
--- NOTE | 2018-10-13 19:50 | NUR ---
HAND-OFF: Report given to Skip SHIELDS/Ekaterina SHIELDS.
[2018-10-13 20:00] VITALS: BP 129/80
--- NOTE | 2018-10-13 20:00 | NUR ---
NURSE NOTES: Receive a report from CORNELIUS Soler. Done rounds. Pt is awake alert. No acute distress noted. Expresses that pain tolerating with YOUTH MINISTRY DIRECTOR pump. SCDs on with Heparin treatment for DVT prophylaxis. Will continue to monitor.
--- NOTE | 2018-10-13 20:33 | General Progress Note ---
Assessment/Plan Assessment/Plan: 28 year old female with PMH of hidradenitis suppurativa presents with complaints of b/l axillary and b/l groin pain, swelling, tenderness, purulent discharge and irritation for past 2 weeks admitted to medicine service for IV antibiotics, pain control and possible surgical intervention. #Hidradenitis suppurativa S/P radical excision of B/L axillary tissue bearing hidradenitis suppurativa POD1 #Intractable pain #Abscess -Surgury consult appreciated - -Failed multiple courses of PO and IV ABX -Cont Ancef -Pain control with RELATIONSHIP COUNSELOR -awaiting path and wound cultures - Continue excellent postoperative care - Encourage mobilization/ambulation - Encourage incentive spirometry to optimize pulmonary hygiene - DVT/GI prophylaxis as appropriate - Pain control and supportive care -ID consulted -Will go to OR on Wednesday for flap inset. Full code TIme of note may not reflect time of encounter Subjective Date patient seen: Oct 13, 2018 Allergies: Coded Allergies: No Known Allergies (Unverified , 10/11/18) Subjective No acute overnight events, pain well controlled wiht RELATIONSHIP COUNSELOR pump, has no complaints , denies nausea, vomiting, fevers, chills, abdominal complaints or urinary complaints. Objective Last 24 Hour Vital Signs Date Time Temp Pulse Resp B/P (MAP) Pulse Ox O2 Delivery O2 Flow Rate FiO2 10/13/18 12:34 68 20 98 10/13/18 12:00 98.6 63 18 130/55 (80) 99 10/13/18 12:00 18 10/13/18 08:00 97.2 65 18 123/55 (77) 98 10/13/18 08:00 18 10/13/18 07:18 Room Air 10/13/18 04:00 98.7 81 20 113/61 (78) 97 10/13/18 04:00 18 10/13/18 00:00 98.0 75 20 130/63 (85) 99 10/13/18 00:00 16 10/12/18 21:00 Room Air Intake and Output 10/12/18 10/13/18 19:00 07:00 Intake Total 490 ml 560 ml Output Total 350 ml 1000 ml Balance 140 ml -440 ml Intake Oral 240 ml 560 ml IV Total 250 ml Output Urine Total 300 ml 1000 ml Estimated Blood Loss 50 ml # Voids 1 Laboratory Tests 7/11/19 05:55: White Blood Count 7.9, Red Blood Count 4.53, Hemoglobin 9.9L, Hematocrit 31.9L, Mean Corpuscular Volume 70L, Mean Corpuscular Hemoglobin 21.8L, Mean Corpuscular Hemoglobin Concent 30.9L, Red Cell Distribution Width 16.4H, Platelet Count 281, Mean Platelet Volume 7.6, Neutrophils (%) (Auto) 67.9, Lymphocytes (%) (Auto) 23.0, Monocytes (%) (Auto) 5.0, Eosinophils (%) (Auto) 3.6H, Basophils (%) (Auto) 0.5, Sodium Level 136, Potassium Level 3.7, Chloride Level 108H, Carbon Dioxide Level 23, Anion Gap 5, Blood Urea Nitrogen 8, Creatinine 0.8, Estimat Glomerular Filtration Rate > 60, Glucose Level 106, Calcium Level 8.4L Height (Feet): 5 Height (Inches): 2.00 Weight (Pounds): 203 Objective General Appearance: WD/WN, no apparent distress, alert Lines, tubes and drains: peripheral HEENT: normocephalic, atraumatic Neck: non-tender, normal alignment Respiratory/Chest: chest wall non-tender, lungs clear, normal breath sounds Cardiovascular/Chest: normal peripheral pulses Abdomen: normal bowel sounds, non tender, soft Extremities: normal range of motion, non-tender, normal inspection Skin Exam: other - b/l axillary with dressing CDI 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
--- NOTE | 2018-10-13 23:30 | NUR ---
NURSE NOTES: Pt is awake and alert. KLEIN relieved after taking Tylenol 325mg 2 t po and ice pack. Keep axillary dressing on and noted more discharge on right side. Tolerating discomfort on both groin area scattered old blister sites. Provide perineal care for comfort. Keep dry and clean. Left foot IV site intact, patent without infiltration. Will continue to monitor.
[2018-10-14] VITALS: BP 135/78
[2018-10-14 04:00] VITALS: BP 133/66
[2018-10-14] MEDS: ceFAZolin sod 1 GM in D5W 55 ML IVPB SCH ×3 (05:31→21:09)
[2018-10-14 06:15] LABS: BASOPHILS % (AUTO) 0.8 % (0.0-2.0); EOSINOPHILS % (AUTO) 4.6 % (0.0-3.0); HEMATOCRIT 32.1 % (37.0-47.0); HEMOGLOBIN 9.7 G/DL (12.0-16.0); LYMPHOCYTES % (AUTO) 29.8 % (20.0-45.0); MEAN CORPUSCULAR VOLUME 71 FL (80-99); MONOCYTES % (AUTO) 6.7 % (1.0-10.0); NEUTROPHILS % (AUTO) 58.1 % (45.0-75.0); PLATELET COUNT 285 K/UL (150-450); RED BLOOD COUNT 4.54 M/UL (4.20-5.40); RED CELL DISTRIBUTION WIDTH 16.5 % (11.6-14.8); WHITE BLOOD COUNT 7.7 K/UL (4.8-10.8)
[2018-10-14 07:06] LABS: ANION GAP 10 mmol/L (5-15); BLOOD UREA NITROGEN 10 mg/dL (7-18); CALCIUM 8.6 MG/DL (8.5-10.1); CARBON DIOXIDE 24 MMOL/L (21-32); CHLORIDE 105 MMOL/L (98-107); CREATININE 0.8 MG/DL (0.55-1.30); POTASSIUM 3.7 MMOL/L (3.5-5.1); SODIUM 138 MMOL/L (136-145)
--- NOTE | 2018-10-14 07:20 | NUR ---
HAND-OFF: Report given to CORNELIUS Clarke. Done round.
[2018-10-14] MEDS: PCA shift volume MISC SCH (07:28)
[2018-10-14 08:00] VITALS: BP 132/61
--- NOTE | 2018-10-14 09:15 | NUR ---
PT EVALUATION NOTE Patient seen for initial evaluation. Patient currently at supervised level for all functional mobility including bed mobility, transfers and ambulation without an assistive device. Skilled inpatient PT intervention not warranted, patient discharged from PT. Patient cleared to ambulate with nursing staff supervision in Tricia thornton RN notified. Anticipate discharge home with family assistance as needed once medically cleared by MD. No DME needs identified at this time. Addendum: 10/14/18 at 1020 by DEANDRA WALSH PT Amended: Links added.
[2018-10-14] MEDS: Docusate 100mg cap ORAL SCH ×2 (10:06→18:58)
[2018-10-14] MEDS: Heparin 5000 units/ml inj SUBQ SCH ×2 (10:06→21:17)
--- NOTE | 2018-10-14 10:31 | NUR ---
NURSE NOTES: Discussed with Dr. Cosby current pain medication ordered/PRN as well and that patient is not using ELECTRONIC SCIENCE TEACHER (Dilaudid) often and that it does not seem as effective from when she first started on it. See orders.
[2018-10-14] MEDS ORDERED: HYDROmorphone 1mg/ml Carpuject IVP PRN (11:00)
--- NOTE | 2018-10-14 11:08 | NUR ---
CASE MANAGEMENT:REVIEW 10/14/18 SI: POD #2 RADICAL EXCISION OF LT AXILLARY TISSUE 98.8 67 18 132/61 96% ON RA H/H-9.7/32.1 IS: IV ANCEF Q8HRS IV DILAUDID Q4HRS PRN OXYCODONE PO Q6HRS PRN : MED/SURG STATUS 3 [facility] PLAN: DRESSING CHANGE BID
[2018-10-14 12:00] VITALS: BP 117/74
[2018-10-14] MEDS: oxyCODONE 15mg IR tab ORAL PRN ×2 (12:28→18:57)
--- NOTE | 2018-10-14 13:45 | NUR ---
NURSE NOTES: Medicated patient 30 minutes prior to dressing change. Bilateral axillary dressing change done as ordered per Dr. Rodriguez. Patient sitting upright at bedside for dressing change. Removed old dressing, pat dry, wound bed moist, pink, slight bleeding noted, no odor, wet to dry dressing (NS) with fanfold kerlix applied to each axillary, covered with ABD pad, secured with medipore tape. Patient tolerated well. Reports dressing feels comfortable and overall dressing change process was better than she expected. Additional wound care supplies at bedside ready for shift production supervisor. Patient up to bathroom, provided self groin/thelma-care to hidradenitis. Encouraged patient to ambulate in halls as tolerated. Patient and spouse ambulated in halls after dressing change, gait steady, tolerated well. Will continue to monitor.
--- NOTE | 2018-10-14 15:35 | NUR ---
*-* INSURANCE *-* ALL CLINICALS HAVE BEEN FAXED TO: [facility] F:[phone]
[2018-10-14 16:00] VITALS: BP 143/85
--- NOTE | 2018-10-14 16:10 | Infectious Diseases Prog Note ---
Assessment/Plan Assessment/Plan Full dictated consult dictated: A) 1) bilateral axilla infected hidradenitis suppurativa with bilateral infected wounds 2) s/p hidradenitis excision and debridement 3) allergies - nkda P) 1) continue iv cefazolin 2) f/u on cultures 3) surgery note reviewed - for flap next week 4) continue treatment per primary care team 5) will f/u Subjective Constitutional: Denies: fever Respiratory: Denies: shortness of breath Cardiovascular: Denies: chest pain, palpitations Gastrointestinal/Abdominal: Denies: nausea, vomiting, diarrhea Allergies: Coded Allergies: No Known Allergies (Unverified , 10/11/18) Objective Vital Signs Last 24 Hour Vital Signs Date Time Temp Pulse Resp B/P (MAP) Pulse Ox O2 Delivery O2 Flow Rate FiO2 10/14/18 12:00 17 10/14/18 08:00 98.8 67 19 132/61 (84) 96 10/14/18 08:00 18 10/14/18 04:00 18 10/14/18 04:00 98.4 69 19 133/66 (88) 99 10/14/18 00:00 98.1 81 18 135/78 (97) 98 10/14/18 00:00 18 10/13/18 21:00 Room Air 10/13/18 20:00 18 10/13/18 20:00 99.9 89 18 129/80 (96) 98 Height (Feet): 5 Height (Inches): 2.00 Weight (Pounds): 203 General Appearance: no acute distress HEENT: normocephalic, atraumatic, anicteric, mucous membranes moist Respiratory/Chest: lungs clear, normal breath sounds, no respiratory distress, no accessory muscle use Cardiovascular: normal rate, regular rhythm, no gallop/murmur Abdomen: normal bowel sounds, soft, non tender, no organomegaly Microbiology Date/Time Source Procedure Growth Status 10/12/18 12:58 Axilla Right Gram Stain - Final Resulted 10/12/18 12:58 Axilla Right Aerobic Culture - Preliminary NO GROWTH Resulted 10/12/18 12:58 Axilla Right Anaerobic Culture Pending Resulted Laboratory Tests Test 10/14/18 05:50 White Blood Count 7.7 K/UL (4.8-10.8) Red Blood Count 4.54 M/UL (4.20-5.40) Hemoglobin 9.7 G/DL (12.0-16.0) L Hematocrit 32.1 % (37.0-47.0) L Mean Corpuscular Volume 71 FL (80-99) L Mean Corpuscular Hemoglobin 21.4 PG (27.0-31.0) L Mean Corpuscular Hemoglobin Concent 30.3 G/DL (32.0-36.0) L Red Cell Distribution Width 16.5 % (11.6-14.8) H Platelet Count 285 K/UL (150-450) Mean Platelet Volume 6.9 FL (6.5-10.1) Neutrophils (%) (Auto) 58.1 % (45.0-75.0) Lymphocytes (%) (Auto) 29.8 % (20.0-45.0) Monocytes (%) (Auto) 6.7 % (1.0-10.0) Eosinophils (%) (Auto) 4.6 % (0.0-3.0) H Basophils (%) (Auto) 0.8 % (0.0-2.0) Sodium Level 138 MMOL/L (136-145) Potassium Level 3.7 MMOL/L (3.5-5.1) Chloride Level 105 MMOL/L (98-107) Carbon Dioxide Level 24 MMOL/L (21-32) Anion Gap 10 mmol/L (5-15) Blood Urea Nitrogen 10 mg/dL (7-18) Creatinine 0.8 MG/DL (0.55-1.30) Estimat Glomerular Filtration Rate > 60 mL/min (>60) Glucose Level 109 MG/DL (74-106) H Calcium Level 8.6 MG/DL (8.5-10.1) Current Medications Medications (Trade) Dose Ordered Sig/Lalit Route PRN Reason Start Time Stop Time Status Last Admin Dose Admin Acetaminophen (Tylenol) 650 mg Q4H PRN ORAL FEVER 10/12/18 11:15 11/11/18 11:14 10/13/18 21:57 Cefazolin Sodium 1 gm/Dextrose 55 ml @ 110 mls/hr Q8HR IVPB 10/11/18 22:00 10/18/18 21:59 10/14/18 15:06 Dextrose (Dextrose 50%) 25 ml Q30M PRN IV Hypoglycemia 10/11/18 18:30 11/10/18 18:29 Dextrose (Dextrose 50%) 50 ml Q30M PRN IV Hypoglycemia 10/11/18 18:30 11/10/18 18:29 Diphenhydramine HCl (Benadryl) 12.5 mg Q6H PRN IVP Itching/Pruritis 10/12/18 11:15 11/11/18 11:14 Docusate Sodium (Colace) 100 mg TWICE A DAY ORAL 10/12/18 18:00 11/11/18 17:59 10/14/18 10:06 Heparin Sodium (Porcine) (Heparin 5000 units/ml) 5,000 units EVERY 12 HOURS SUBQ 10/12/18 21:00 11/11/18 20:59 10/14/18 10:06 Hydromorphone HCl (Dilaudid) 1 mg Q4H PRN IVP Severe Breakthru Pain (>7) 10/14/18 11:00 10/21/18 10:59 Metoclopramide HCl (Reglan) 10 mg Q6H PRN IVP Nausea & Vomiting 10/12/18 11:15 11/11/18 11:14 Ondansetron HCl (Zofran) 4 mg Q6H PRN IVP Nausea & Vomiting 10/12/18 11:15 11/11/18 11:14 Oxycodone HCl (Roxicodone) 15 mg Q6H PRN ORAL For Pain 10/14/18 10:30 10/21/18 10:29 10/14/18 12:28 Zolpidem Tartrate (Ambien) 5 mg DAILYPRN PRN ORAL Insomnia 10/12/18 11:15 10/19/18 11:14 Nate Gomes MD Oct 14, 2018 16:10
--- NOTE | 2018-10-14 19:00 | Consultation ---
DATE OF CONSULTATION: 10/14/2018 INFECTIOUS DISEASES CONSULTATION CONSULTING PHYSICIAN: Nate Gomes M.D. ATTENDING PHYSICIAN: Stu Ruiz M.D. REFERRING PHYSICIAN: 1. Eugenie Perrin M.D. 2. Ceci Rodriguez M.D. REASON FOR CONSULTATION: Infected bilateral axilla wounds and hidradenitis suppurativa. CHIEF COMPLAINT: The patient's chief complaint coming in to the hospital is hidradenitis suppurativa and infected wounds of the axilla. HISTORY OF PRESENT ILLNESS: This is a very pleasant 28-year-old female who has history of hidradenitis suppurativa. The patient comes into [facility] with infected wounds, infected hidradenitis of the bilateral axillary area. The patient had purulent discharge and had infected wounds. The patient is status post debridement and radical excision of hidradenitis suppurativa and infected wounds of bilateral axilla. Infectious Diseases consultation was requested for antibiotic management. Wound culture is negative so far, however, it is preliminary. The patient currently is on cefazolin empirically. MAR was noted. Orders noted. Notes were reviewed. Case discussed with the patient. REVIEW OF SYSTEMS: GENERAL: Main issue is pain in the axilla area. She also had groin pain. She has no fever or chills. No CVA tenderness. HEAD AND NECK: No head pain or neck pain. No fever or chills. PULMONARY: No congestion or shortness of breath. SKIN: No rash or itching. EXTREMITIES: No extremity pain. NEUROLOGIC: No seizures. GI: No nausea, vomiting, or diarrhea. GENITOURINARY: No Rehman. PAST MEDICAL HISTORY: Includes history of hidradenitis suppurativa. No history of diabetes or hypertension. She has had multiple oral antibiotic treatments for hidradenitis without improvement infected hidradenitis suppurativa. ALLERGIES: No known drug allergies. SOCIAL HISTORY: Negative for smoking, alcohol, or drug abuse. FAMILY HISTORY: Noncontributory. MEDICATIONS: Upon reviewing the MAR, she is on following medications: She is on hydromorphone, heparin, oxycodone, docusate, Zofran, metoclopramide, Zolpidem, acetaminophen, diphenhydramine, cefazolin 1 g IV every 8 hours. Outside medications noted and reconciliated. PHYSICAL EXAMINATION: VITAL SIGNS: Temperature 98.8, pulse 87, respiratory rate 17, blood pressure 117/74, saturation 99% on room air. GENERAL: Alert and responsive. No acute distress. HEAD AND NECK: Oral exam, no thrush. Eye exam, no icterus. Neck is supple. No JVD. Normocephalic. HEART: Regular. No gallop or murmur. ABDOMEN: Soft. Positive bowel sounds. Nontender. LUNGS: Clear bilaterally. No rhonchi or rales. SKIN: No rash. Bilateral axilla are covered postsurgically with dressing. MUSCULOSKELETAL: No effusions. Legs are without cellulitis. PERIPHERAL VASCULAR: No cyanosis. GENITOURINARY: No Rehman. LINES: Line sites without phlebitis. NEUROLOGIC: Intact. Nonfocal. Alert and oriented x3. LABORATORY DATA: White count 7.7 and hemoglobin 9.7. Blood cultures are negative to date. Cultures from the axilla are pending. Preliminary, there is no growth, however, final results are pending. Creatinine is 0.8. Urine HCG is negative. No imaging studies. ASSESSMENT AND PLAN: 1. The patient has bilateral axilla infected wounds and infected hidradenitis suppurativa with purulent drainage. The patient is status post debridement and radical excision of the hidradenitis suppurativa and debridement of infected wounds. Continue empiric cefazolin 1 g IV every 8 hours for gram-positive coverage. Continue cefazolin. Check cultures from the surgery. Intraoperative cultures. 2. No other significant past medical history. 3. Pain management per primary team and Surgery. 4. Wound care per Surgery. 5. Anemia. 6. No known allergies. 7. Social history is negative. 8. Family history is noncontributory. 9. MAR was noted. 10. Case discussed with RN. 11. Continue treatment per primary consultants. Nate Gomes M.D. DR: Yrn JOB#: [id number] CC:
--- NOTE | 2018-10-14 19:20 | NUR ---
HAND-OFF: Report given to Wesleyu RN.
--- NOTE | 2018-10-14 19:25 | NUR ---
NURSE NOTES: Received report from CORNELIUS Clarke. Patient alert, awake, and verbally responsive to let her needs known. Patient was breathing unlabored and evenly without signs of distress, discomfort, and SOB. No pain in general and on surgical site noted at this time. Patient's surgical site was noted with dressing intact, dry, and clean. Two IV sites was noted, on the LAC and Left Ankle. Both IV sites intact, dry, and saline locked. Patient's bed is placed at the lowest with brakes and side rails up x 2 for bed mobility assistance and safety. Call light placed within reach. Will continue to monitor and provide care as ordered.
--- NOTE | 2018-10-14 19:44 | General Progress Note ---
Assessment/Plan Assessment/Plan: 28 year old female with PMH of hidradenitis suppurativa presents with complaints of b/l axillary and b/l groin pain, swelling, tenderness, purulent discharge and irritation for past 2 weeks admitted to medicine service for IV antibiotics, pain control and possible surgical intervention. #Hidradenitis suppurativa S/P radical excision of B/L axillary tissue bearing hidradenitis suppurativa POD2 #Intractable pain #Abscess -Surgury consult appreciated - -Failed multiple courses of PO and IV ABX -Cont Ancef -Pain control with DEPUTY JUVENILE OFFICER -awaiting path and wound cultures - NGTD - Continue excellent postoperative care - Encourage mobilization/ambulation - Encourage incentive spirometry to optimize pulmonary hygiene - DVT/GI prophylaxis as appropriate - Pain control and supportive care -ID consult appreciated -Will go to OR on Wednesday for flap inset. Full code TIme of note may not reflect time of encounter Subjective Date patient seen: Oct 14, 2018 ROS Limited/Unobtainable: No Allergies: Coded Allergies: No Known Allergies (Unverified , 10/11/18) All Systems: reviewed and negative except above Subjective No acute overnight events, pt with decreased need for Dilaudid DEPUTY JUVENILE OFFICER pump, requestingto transition to PO med with IV breakthrough. Currently has no complaints, denies nausea, vomiting, fevers, chills, abdominal complaints or urinary complaints. Objective Last 24 Hour Vital Signs Date Time Temp Pulse Resp B/P (MAP) Pulse Ox O2 Delivery O2 Flow Rate FiO2 10/14/18 16:00 98.3 93 19 143/85 (104) 97 10/14/18 12:00 98.8 87 19 117/74 (88) 99 10/14/18 12:00 17 10/14/18 09:00 Room Air 10/14/18 08:00 98.8 67 19 132/61 (84) 96 10/14/18 08:00 18 10/14/18 04:00 18 10/14/18 04:00 98.4 69 19 133/66 (88) 99 10/14/18 00:00 98.1 81 18 135/78 (97) 98 10/14/18 00:00 18 10/13/18 21:00 Room Air 10/13/18 20:00 18 10/13/18 20:00 99.9 89 18 129/80 (96) 98 Intake and Output 7/11/19 7/12/19 19:00 07:00 Intake Total 240 ml Output Total 1 ml Balance 239 ml Intake Oral 240 ml Output Urine Total 1 ml # Voids 3 Laboratory Tests 10/14/18 05:50: White Blood Count 7.7, Red Blood Count 4.54, Hemoglobin 9.7L, Hematocrit 32.1L, Mean Corpuscular Volume 71L, Mean Corpuscular Hemoglobin 21.4L, Mean Corpuscular Hemoglobin Concent 30.3L, Red Cell Distribution Width 16.5H, Platelet Count 285, Mean Platelet Volume 6.9, Neutrophils (%) (Auto) 58.1, Lymphocytes (%) (Auto) 29.8, Monocytes (%) (Auto) 6.7, Eosinophils (%) (Auto) 4.6H, Basophils (%) (Auto) 0.8, Sodium Level 138, Potassium Level 3.7, Chloride Level 105, Carbon Dioxide Level 24, Anion Gap 10, Blood Urea Nitrogen 10, Creatinine 0.8, Estimat Glomerular Filtration Rate > 60, Glucose Level 109H, Calcium Level 8.6 Height (Feet): 5 Height (Inches): 2.00 Weight (Pounds): 203 Objective General Appearance: WD/WN, no apparent distress, alert Lines, tubes and drains: peripheral HEENT: normocephalic, atraumatic Neck: non-tender, normal alignment Respiratory/Chest: chest wall non-tender, lungs clear, normal breath sounds Cardiovascular/Chest: normal peripheral pulses Abdomen: normal bowel sounds, non tender, soft Extremities: normal range of motion, non-tender, normal inspection Skin Exam: other - b/l axillary with dressing CDI Neurologic: raisin washer II-XII grossly normal Eugenie Cosby MD Oct 14, 2018 19:44
[2018-10-14 20:00] VITALS: BP 154/94
--- NOTE | 2018-10-14 21:15 | NUR ---
NURSE NOTES: Patient's IV antibiotic Cefazolin was leaking due to a broken vial. Used a new set available in the patient's bin to be administered at this time. Pharmacy personnel, Artur was notified and made aware.
--- NOTE | 2018-10-14 22:25 | NUR ---
NURSE NOTES: Performed dressing change as ordered by Dr. Rodriguez. Explained procedure to the patient before and while performing the procedure. Patient verbalized understanding. Patient and actively involved in patient's care. Patient tolerated the procedure well. Dressing currently intact, clean, and dry. Will continue to monitor and provide care as ordered.
[2018-10-15] VITALS: BP 131/64
[2018-10-15 04:00] VITALS: BP 123/64
[2018-10-15] MEDS: ceFAZolin sod 1 GM in D5W 55 ML IVPB SCH (05:17)
[2018-10-15] MEDS ORDERED: Tubing IV Secondary IV ONE (05:52)
[2018-10-15] MEDS ORDERED: NS 500ML ONE (05:52)
--- NOTE | 2018-10-15 07:31 | NUR ---
HAND-OFF: Report given to CORNELIUS Delaney.
[2018-10-15 08:00] VITALS: BP 113/59
--- NOTE | 2018-10-15 08:03 | NUR ---
NURSE NOTES: Pt is currently sleeping . Pending procedure for Wednesday. Call light placed in reach .
[2018-10-15] MEDS: Docusate 100mg cap ORAL SCH ×2 (08:46→17:50)
[2018-10-15] MEDS: oxyCODONE 15mg IR tab ORAL PRN ×3 (08:46→20:16)
[2018-10-15] MEDS: Heparin 5000 units/ml inj SUBQ SCH ×2 (08:49→22:44)
--- NOTE | 2018-10-15 09:00 | NUR ---
NURSE NOTES: Pt spoke to Dr Elkins pt states she did not realize benefits of WATERSHED PROGRAM MANAGER. gave okay to resume WATERSHED PROGRAM MANAGER pump. Roxycodone given for complaints of pain , anxiety related to pending wound care.
--- NOTE | 2018-10-15 09:17 | General Progress Note ---
Progress Note Progress Note Pt seen and examined. POD # 3 and stable. Dressings removed and axillary wounds are clean. Bilateral chest wall flaps viable. Small area of ischemic changes in the very distal tip of right flap. Plan for OR for flap coverage of wound on Wednesday. Ceci Mead MD, MD Oct 15, 2018 09:17
--- NOTE | 2018-10-15 09:30 | NUR ---
NURSE NOTES: Unable to reassess Roxicodone pt verbalized comfort yet still in pain 05/15 . Roxicodone dc 2 to ASSOCIATE PROFESSOR OF THEATRE pump order
[2018-10-15] MEDS ORDERED: Naloxone 0.4mg/ml Inj IVP PRN (10:00)
[2018-10-15] MEDS ORDERED: PCA Education Pamphlet MISC ONE (10:00)
[2018-10-15] MEDS ORDERED: PCA HYDROmorphone 1mg/ml 30 ML IV PRN (10:00)
[2018-10-15] MEDS ORDERED: Rate Change PCA 1 Each MISC PRN (10:00)
[2018-10-15 12:00] VITALS: BP 142/91
[2018-10-15] MEDS ORDERED: Vancomycin 1gm/D5W 275ml IVPB SCH ×2 (14:00)
--- NOTE | 2018-10-15 14:38 | NUR ---
CASE MANAGEMENT:REVIEW 10/15/18 SI: POD #3 RADICAL EXCISION OF LT AXILLARY TISSUE T 98.5 HR 81 RR 17 B/P 123/64 SATS 98% ON RA NO LABS TODAY IS: IV ANCEF Q8HRS IV DILAUDID Q4HRS PRN OXYCODONE PO Q6HRS PRN : MED/SURG STATUS 3 EAST PLAN: DRESSING CHANGE BID
[2018-10-15] MEDS ORDERED: NS Irrig 1000ml ONE (16:20)
[2018-10-15 16:38] VITALS: BP 140/80
[2018-10-15] MEDS: Vancomycin 1gm/D5W 275ml IVPB SCH ×2 (17:50)
--- NOTE | 2018-10-15 17:50 | NUR ---
NURSE NOTES: Pt cooperated with plan of care. Wound care rendered earlier in shift. Bandage clean and intact. at this time. Aware of pending procedure.
[2018-10-15] MEDS ORDERED: PCA shift volume MISC SCH (19:00)
[2018-10-15 20:00] VITALS: BP 145/98
--- NOTE | 2018-10-15 20:35 | NUR ---
NURSE NOTES: Pt is in bed, awake and alert. No acute distress noted. Pt is requesting pain medication. pain medication is given as ordered PRN. Dressing dry and intact. Pt informed about flap closure Sx on Wednesday. Consent was signed by patient. bed junior dlow in position,side rails up and call light within reach. Pt will be monitored.
--- NOTE | 2018-10-15 23:17 | General Progress Note ---
Assessment/Plan Assessment/Plan: 28 year old female with PMH of hidradenitis suppurativa presents with complaints of b/l axillary and b/l groin pain, swelling, tenderness, purulent discharge and irritation for past 2 weeks admitted to medicine service for IV antibiotics, pain control and possible surgical intervention. #Hidradenitis suppurativa S/P radical excision of B/L axillary tissue bearing hidradenitis suppurativa POD2 #Intractable pain #Abscess -Surgury consult appreciated - -Failed multiple courses of PO and IV ABX -Cont Ancef -Pain control with COURTESY BUS DRIVER -awaiting path and wound cultures - NGTD - Continue excellent postoperative care - Encourage mobilization/ambulation - Encourage incentive spirometry to optimize pulmonary hygiene - DVT/GI prophylaxis as appropriate - Pain control and supportive care -ID consult appreciated -Pre-op labs ordered -Will go to OR on Wednesday for flap inset. Full code TIme of note may not reflect time of encounter Subjective Date patient seen: Oct 15, 2018 Allergies: Coded Allergies: No Known Allergies (Unverified , 10/11/18) All Systems: reviewed and negative except above Subjective No acute overnight events, Complaining of post-surgical pain, Dilaudid COURTESY BUS DRIVER restarted. Denies nausea, vomiting, fevers, chills, abdominal complaints or urinary complaints. Objective Last 24 Hour Vital Signs Date Time Temp Pulse Resp B/P (MAP) Pulse Ox O2 Delivery O2 Flow Rate FiO2 10/15/18 20:00 97.9 99 20 145/98 (114) 98 10/15/18 16:38 97.2 90 20 140/80 (100) 97 10/15/18 12:00 97.6 93 20 142/91 (108) 99 10/15/18 09:00 Room Air 10/15/18 08:00 98.2 75 18 113/59 (77) 95 10/15/18 04:00 98.5 81 17 123/64 (83) 98 10/15/18 00:00 98.3 85 18 131/64 (86) 100 Intake and Output 10/14/18 10/15/18 19:00 07:00 Intake Total 955 ml 110 ml Balance 955 ml 110 ml Intake Oral 955 ml IV Total 110 ml # Voids 3 4 Height (Feet): 5 Height (Inches): 2.00 Weight (Pounds): 203 Objective General Appearance: WD/WN, no apparent distress, alert Lines, tubes and drains: peripheral HEENT: normocephalic, atraumatic Neck: non-tender, normal alignment Respiratory/Chest: chest wall non-tender, lungs clear, normal breath sounds Cardiovascular/Chest: normal peripheral pulses Abdomen: normal bowel sounds, non tender, soft Extremities: normal range of motion, non-tender, normal inspection Skin Exam: other - b/l axillary with dressing CDI Neurologic: low heel builder II-XII grossly normal Eugenie Cosby MD Oct 15, 2018 23:17
[2018-10-16] VITALS: BP 120/63
[2018-10-16] MEDS: HYDROmorphone 1mg/ml Carpuject IVP PRN ×3 (01:22→22:22)
[2018-10-16 04:00] VITALS: BP 122/65
--- NOTE | 2018-10-16 04:30 | NUR ---
NURSE NOTES: Pt is in bed, asleep. No acute distress noted. by bedside.
[2018-10-16] MEDS: Vancomycin 1gm/D5W 275ml IVPB SCH ×4 (05:50→17:23)
--- NOTE | 2018-10-16 07:25 | NUR ---
HAND-OFF: Report given to Petros Love RN.
[2018-10-16 08:00] VITALS: BP 128/66
--- NOTE | 2018-10-16 08:00 | NUR ---
NURSE NOTES: received report from CORNELIUS Shipley. patient in bed. alert. oriented. verbally responsive. no respiratory distress noted on room air. no c/o pain at this time. IV on LAC 20g, Lt foot 20g heplock intact. bed in the lowest position. call light within reach. on bedside. will continue to provide plan of care.
[2018-10-16] MEDS: Docusate 100mg cap ORAL SCH ×2 (08:27→17:16)
[2018-10-16] MEDS: Heparin 5000 units/ml inj SUBQ SCH ×2 (08:28→22:32)
[2018-10-16] MEDS: oxyCODONE 15mg IR tab ORAL PRN ×2 (08:30→14:31)
[2018-10-16 09:44] LABS: BASOPHILS % (AUTO) 0.8 % (0.0-2.0); EOSINOPHILS % (AUTO) 3.6 % (0.0-3.0); HEMATOCRIT 32.9 % (37.0-47.0); HEMOGLOBIN 10.1 G/DL (12.0-16.0); LYMPHOCYTES % (AUTO) 25.2 % (20.0-45.0); MEAN CORPUSCULAR VOLUME 71 FL (80-99); MONOCYTES % (AUTO) 7.3 % (1.0-10.0); NEUTROPHILS % (AUTO) 63.1 % (45.0-75.0); PLATELET COUNT 278 K/UL (150-450); RED BLOOD COUNT 4.67 M/UL (4.20-5.40); RED CELL DISTRIBUTION WIDTH 16.2 % (11.6-14.8); WHITE BLOOD COUNT 7.7 K/UL (4.8-10.8)
[2018-10-16 09:50] LABS: INR 0.9 (0.9-1.1)
[2018-10-16 10:31] LABS: ANION GAP 9 mmol/L (5-15); BLOOD UREA NITROGEN 12 mg/dL (7-18); CALCIUM 8.6 MG/DL (8.5-10.1); CARBON DIOXIDE 23 MMOL/L (21-32); CHLORIDE 106 MMOL/L (98-107); CREATININE 0.7 MG/DL (0.55-1.30); PHOSPHORUS 3.5 MG/DL (2.5-4.9); POTASSIUM 3.8 MMOL/L (3.5-5.1); SODIUM 138 MMOL/L (136-145)
[2018-10-16 12:00] VITALS: BP 131/66
--- NOTE | 2018-10-16 13:05 | NUR ---
NURSE NOTES: patient has not had BM for a week. notified dr. Cosby and received order of MOM 30cc po prn qd for constipation. senna 8.6mg 2tabs po qhs. order noted and carried out.
[2018-10-16] MEDS: Milk of Magnesia 30ml Ud ORAL PRN (13:22)
--- NOTE | 2018-10-16 14:48 | Infectious Diseases Prog Note ---
Assessment/Plan Assessment/Plan ASSESSMENT AND PLAN: 1. streptococcus viridans/diphtheroids/special warfare operator bilateral axilla infected wounds and infected hidradenitis suppurativa - s/p debridement and excision - antibiotics changed to vancomycin - check final sensitivities - monitor labs, creatinine - for flap closure tomorrow 2. No other significant past medical history. 3. Pain management per primary team and Surgery. 4. Wound care per Surgery. 5. Anemia. 6. No known allergies. 7. Social history is negative. 8. Family history is noncontributory. 9. MAR was noted. 10. Case discussed with RN. 11. Continue treatment per primary consultants. Subjective Constitutional: Denies: fever HEENT: Denies: congestion Respiratory: Denies: shortness of breath Cardiovascular: Denies: chest pain Gastrointestinal/Abdominal: Denies: nausea, vomiting, diarrhea Genitourinary: Reports: other - no saha Neurologic: Denies: headache Psychiatric: Denies: depression Skin: Denies: rash Hematologic: Denies: bleeding Musculoskeletal: Reports: pain - controlled Allergies: Coded Allergies: No Known Allergies (Unverified , 10/11/18) Objective Vital Signs Last 24 Hour Vital Signs Date Time Temp Pulse Resp B/P (MAP) Pulse Ox O2 Delivery O2 Flow Rate FiO2 10/16/18 12:00 98.0 80 20 131/66 (87) 98 10/16/18 09:00 Room Air 10/16/18 08:00 98.1 81 18 128/66 (86) 97 10/16/18 04:00 98.7 98 20 122/65 (84) 98 10/16/18 00:00 98.6 97 20 120/63 (82) 98 10/15/18 21:00 Room Air 10/15/18 20:00 97.9 99 20 145/98 (114) 98 10/15/18 16:38 97.2 90 20 140/80 (100) 97 Height (Feet): 5 Height (Inches): 2.00 Weight (Pounds): 203 General Appearance: no acute distress HEENT: normocephalic, atraumatic, anicteric, EOMI, supple, no JVD Respiratory/Chest: lungs clear, normal breath sounds, no respiratory distress, no accessory muscle use Cardiovascular: normal rate, regular rhythm, no gallop/murmur, no JVD Abdomen: normal bowel sounds, soft, non tender, no organomegaly, non distended Genitourinary: other - no saha Extremities: no cyanosis Skin: no rash Neurologic/Psychiatric: phone banker II-XII grossly normal, alert, oriented x 3, responsive Lymphatic: no neck adenopathy Musculoskeletal: no effusion Objective no imaging Microbiology Date/Time Source Procedure Growth Status 10/11/18 13:58 Blood Blood Culture - Preliminary NO GROWTH AFTER 4 DAYS Resulted 10/12/18 12:58 Axilla Right Gram Stain - Final Complete 10/12/18 12:58 Aerobic Culture - Final Diphtheroids Staphylococcus Sp Coag Neg Streptococcus Viridans Complete 10/12/18 12:58 Axilla Right Anaerobic Culture - Final NO ANAEROBES ISOLATED Complete Laboratory Tests Test 10/16/18 09:05 White Blood Count 7.7 K/UL (4.8-10.8) Red Blood Count 4.67 M/UL (4.20-5.40) Hemoglobin 10.1 G/DL (12.0-16.0) L Hematocrit 32.9 % (37.0-47.0) L Mean Corpuscular Volume 71 FL (80-99) L Mean Corpuscular Hemoglobin 21.6 PG (27.0-31.0) L Mean Corpuscular Hemoglobin Concent 30.6 G/DL (32.0-36.0) L Red Cell Distribution Width 16.2 % (11.6-14.8) H Platelet Count 278 K/UL (150-450) Mean Platelet Volume 6.8 FL (6.5-10.1) Neutrophils (%) (Auto) 63.1 % (45.0-75.0) Lymphocytes (%) (Auto) 25.2 % (20.0-45.0) Monocytes (%) (Auto) 7.3 % (1.0-10.0) Eosinophils (%) (Auto) 3.6 % (0.0-3.0) H Basophils (%) (Auto) 0.8 % (0.0-2.0) Prothrombin Time 10.0 SEC (9.30-11.50) Prothromb Time International Ratio 0.9 (0.9-1.1) Activated Partial Thromboplast Time 27 SEC (23-33) Sodium Level 138 MMOL/L (136-145) Potassium Level 3.8 MMOL/L (3.5-5.1) Chloride Level 106 MMOL/L (98-107) Carbon Dioxide Level 23 MMOL/L (21-32) Anion Gap 9 mmol/L (5-15) Blood Urea Nitrogen 12 mg/dL (7-18) Creatinine 0.7 MG/DL (0.55-1.30) Estimat Glomerular Filtration Rate > 60 mL/min (>60) Glucose Level 102 MG/DL (74-106) Calcium Level 8.6 MG/DL (8.5-10.1) Phosphorus Level 3.5 MG/DL (2.5-4.9) Magnesium Level 2.0 MG/DL (1.8-2.4) Current Medications Medications (Trade) Dose Ordered Sig/Lalit Route PRN Reason Start Time Stop Time Status Last Admin Dose Admin Acetaminophen (Tylenol) 650 mg Q4H PRN ORAL FEVER 10/12/18 11:15 11/11/18 11:14 10/13/18 21:57 Dextrose (Dextrose 50%) 25 ml Q30M PRN IV Hypoglycemia 10/11/18 18:30 11/10/18 18:29 Dextrose (Dextrose 50%) 50 ml Q30M PRN IV Hypoglycemia 10/11/18 18:30 11/10/18 18:29 Diphenhydramine HCl (Benadryl) 12.5 mg Q6H PRN IVP Itching/Pruritis 10/12/18 11:15 11/11/18 11:14 Docusate Sodium (Colace) 100 mg TWICE A DAY ORAL 10/12/18 18:00 11/11/18 17:59 10/16/18 08:27 Heparin Sodium (Porcine) (Heparin 5000 units/ml) 5,000 units EVERY 12 HOURS SUBQ 10/12/18 21:00 11/11/18 20:59 10/16/18 08:28 Hydromorphone HCl (Dilaudid) 1 mg Q4H PRN IVP Severe Breakthru Pain (>7) 10/15/18 13:55 10/22/18 13:54 10/16/18 01:22 Magnesium Hydroxide (Mom) 30 ml DAILYPRN PRN ORAL Constipation 10/16/18 13:15 11/15/18 13:14 10/16/18 13:22 Metoclopramide HCl (Reglan) 10 mg Q6H PRN IVP Nausea & Vomiting 10/12/18 11:15 11/11/18 11:14 Ondansetron HCl (Zofran) 4 mg Q6H PRN IVP Nausea & Vomiting 10/12/18 11:15 11/11/18 11:14 Oxycodone HCl (Roxicodone) 15 mg Q6H PRN ORAL PAIN 1-7 10/15/18 14:00 10/22/18 13:59 10/16/18 14:31 Sennosides (Senokot) 17.2 mg QHS ORAL 10/16/18 21:00 11/15/18 20:59 Vancomycin HCl (Vanco rx to dose) 1 ea DAILY PRN MISC Per rx protocol 10/15/18 12:15 11/14/18 12:14 Vancomycin HCl 1 gm/Dextrose 275 ml @ 183.708 mls/hr Q12HR@0600,1800 IVPB 10/15/18 18:00 10/20/18 17:59 10/16/18 05:50 Zolpidem Tartrate (Ambien) 5 mg DAILYPRN PRN ORAL Insomnia 10/12/18 11:15 10/19/18 11:14 Nate Gomes MD Oct 16, 2018 14:48
--- NOTE | 2018-10-16 15:11 | General Progress Note ---
Assessment/Plan Assessment/Plan: 28 year old female with PMH of hidradenitis suppurativa presents with complaints of b/l axillary and b/l groin pain, swelling, tenderness, purulent discharge and irritation for past 2 weeks admitted to medicine service for IV antibiotics, pain control and possible surgical intervention. #Hidradenitis suppurativa S/P radical excision of B/L axillary tissue bearing hidradenitis suppurativa POD2 #Intractable pain #Abscess -Surgury consult appreciated - -Failed multiple courses of PO and IV ABX -Ancef - Changed to Vancomycin -Pain control with SUPERVISOR MAJOR APPLIANCE ASSEMBLY -awaiting path and wound cultures - - +Staph and strep - Continue excellent postoperative care - Encourage mobilization/ambulation - Encourage incentive spirometry to optimize pulmonary hygiene - DVT/GI prophylaxis as appropriate - Pain control and supportive care -ID consult appreciated -Pre-op labs ordered -NPO MN -Will go to OR on Wednesday for flap inset. Full code TIme of note may not reflect time of encounter Subjective Date patient seen: Oct 16, 2018 Allergies: Coded Allergies: No Known Allergies (Unverified , 10/11/18) Subjective No acute overnight events, post-surgical pain controlled, Dilaudid SUPERVISOR MAJOR APPLIANCE ASSEMBLY discontinued. Denies nausea, vomiting, fevers, chills, abdominal complaints or urinary complaints. Objective Last 24 Hour Vital Signs Date Time Temp Pulse Resp B/P (MAP) Pulse Ox O2 Delivery O2 Flow Rate FiO2 10/16/18 12:00 98.0 80 20 131/66 (87) 98 10/16/18 09:00 Room Air 10/16/18 08:00 98.1 81 18 128/66 (86) 97 10/16/18 04:00 98.7 98 20 122/65 (84) 98 10/16/18 00:00 98.6 97 20 120/63 (82) 98 10/15/18 21:00 Room Air 10/15/18 20:00 97.9 99 20 145/98 (114) 98 10/15/18 16:38 97.2 90 20 140/80 (100) 97 Intake and Output 10/15/18 10/16/18 18:59 06:59 Intake Total 300 ml 643.708 ml Balance 300 ml 643.708 ml Intake Oral 300 ml 460 ml IV Total 183.708 ml # Voids 2 1 Laboratory Tests 10/16/18 09:05: White Blood Count 7.7, Red Blood Count 4.67, Hemoglobin 10.1L, Hematocrit 32.9L , Mean Corpuscular Volume 71L, Mean Corpuscular Hemoglobin 21.6L, Mean Corpuscular Hemoglobin Concent 30.6L, Red Cell Distribution Width 16.2H, Platelet Count 278, Mean Platelet Volume 6.8, Neutrophils (%) (Auto) 63.1, Lymphocytes (%) (Auto) 25.2, Monocytes (%) (Auto) 7.3, Eosinophils (%) (Auto) 3.6H, Basophils (%) (Auto) 0.8, Prothrombin Time 10.0, Prothromb Time International Ratio 0.9, Activated Partial Thromboplast Time 27, Sodium Level 138, Potassium Level 3.8, Chloride Level 106, Carbon Dioxide Level 23, Anion Gap 9, Blood Urea Nitrogen 12, Creatinine 0.7, Estimat Glomerular Filtration Rate > 60, Glucose Level 102, Calcium Level 8.6, Phosphorus Level 3.5, Magnesium Level 2.0 Height (Feet): 5 Height (Inches): 2.00 Weight (Pounds): 203 Objective General Appearance: WD/WN, no apparent distress, alert Lines, tubes and drains: peripheral HEENT: normocephalic, atraumatic Neck: non-tender, normal alignment Respiratory/Chest: chest wall non-tender, lungs clear, normal breath sounds Cardiovascular/Chest: normal peripheral pulses Abdomen: normal bowel sounds, non tender, soft Extremities: normal range of motion, non-tender, normal inspection Skin Exam: other - b/l axillary with dressing CDI Neurologic: catalogue maker II-XII grossly normal Eugenie Cosby MD Oct 16, 2018 15:11
[2018-10-16 16:00] VITALS: BP 130/66
--- NOTE | 2018-10-16 19:21 | NUR ---
HAND-OFF: Report given to CORNELIUS Shipley.
--- NOTE | 2018-10-16 19:43 | NUR ---
NURSE NOTES: Pt is in bed, awake and alert. No acute distress noted. Bilat axilla dressing dry and intact. Pt appears comfortable. No acute distress noted. Pain medication will be given as ordered PRN. Pt reminded to stay NPO after midnight for surgery tomorrow. Right wrist 22G IV access, site asymptomatic. Consent has been signed. Bed locked low in position,side rails up and call light within reach.
[2018-10-16 20:00] VITALS: BP 123/70
[2018-10-16] MEDS: Sennosides 8.6mg tab ORAL SCH (22:22)
[2018-10-17] VITALS (15 sets, daily range): BP systolic 109–139; BP diastolic 58–99
--- NOTE | 2018-10-17 04:09 | NUR ---
NURSE NOTES: Pt is in bed, asleep. No acute distress noted. Pt is currently NPO for Axillary flap closure Sx.
[2018-10-17] MEDS: HYDROmorphone 1mg/ml Carpuject IVP PRN ×2 (05:06→09:23)
--- NOTE | 2018-10-17 07:25 | NUR ---
HAND-OFF: Report given to CORNELIUS Hansen.
--- NOTE | 2018-10-17 07:30 | NUR ---
NURSE NOTES: Received report from Quinten RN. Patient is awake alert and oriented, no acute distress noted. Per report NPO maintained over night for surgery today. Bilateral axilla dressings clean, dry, intact. Patient and her updated on plan of care for the day. Will continue to monitor.
[2018-10-17] MEDS: Vancomycin 1gm/D5W 275ml IVPB SCH ×6 (08:28→17:06)
[2018-10-17] MEDS: Heparin 5000 units/ml inj SUBQ SCH ×2 (09:00→20:45)
[2018-10-17] MEDS: Docusate 100mg cap ORAL SCH ×2 (09:00→18:07)
[2018-10-17] MEDS ORDERED: fentaNYL 100 mcg/2 mL IV ONE (09:35)
[2018-10-17] MEDS ORDERED: Midazolam 2mg/2ml Inj ONE (09:36)
[2018-10-17] MEDS ORDERED: Sodium Chloride 10ml vial INJ ONE (09:39)
[2018-10-17] MEDS ORDERED: Lidocaine 1% MPF 10mg/ml 5ml ONE (09:39)
--- NOTE | 2018-10-17 10:04 | Pre-Procedure Note/Attestation ---
Pre-Procedure Note/Attestation Complete Prior to Procedure Planned Procedure: bilateral Procedure Narrative: Bilateral axillary wound flap closure Indications for Procedure Pre-Operative Diagnosis: Bilateral axillary hidradenitis Attestation I attest that I discussed the nature of the procedure; its benefits; risks and complications; and alternatives (and the risks and benefits of such alternatives ), prior to the procedure, with the patient (or the patient's legal apparel trimmings sales representative). I attest that, if there was a reasonable possibility of needing a blood transfusion, the patient (or the patient's legal apparel trimmings sales representative) was given the [facility] standardized written summary, pursuant to the Merrill [place] Blood Safety Act ([place] Health and Safety Code # 1645, as amended). I attest that I re-evaluated the patient just prior to the surgery and that there has been no change in the patient's H&P, except as documented below: Ceci Rodriguez MD Oct 17, 2018 10:04
--- NOTE | 2018-10-17 10:14 | NUR ---
*-* INSURANCE *-* UPDATED CLINICALS HAVE BEEN FAXED TO: [facility] INCLUDES THE [facility] F:[phone]
--- NOTE | 2018-10-17 10:24 | NUR ---
NURSE NOTES: Patient taken down for surgery by oliver Lentz.
[2018-10-17] MEDS ORDERED: Bacitracin 50000 Units Vial ONE (10:45)
[2018-10-17] MEDS ORDERED: Zemuron 50mg/5ml Inj IV ONE ×2 (10:45→13:00)
[2018-10-17] MEDS ORDERED: TransDerm Scop 1mg/72HR Patch TDERMAL ONE (11:04)
[2018-10-17] MEDS ORDERED: Rate Change PCA 1 Each MISC PRN (11:30)
[2018-10-17] MEDS ORDERED: Succinylcholine 20mg/ml 10ml vial ONE (11:30)
[2018-10-17] MEDS ORDERED: Propofol 200mg/20ml IV ONE (11:30)
[2018-10-17] MEDS ORDERED: PCA Education Pamphlet MISC SCH (11:30)
[2018-10-17] MEDS ORDERED: Sterile Water Irrig 1000ml IRRIG ONE (11:30)
[2018-10-17] MEDS ORDERED: NS Irrig 1000ml ONE (11:30)
[2018-10-17] MEDS ORDERED: LR 1000ml ONE (11:30)
[2018-10-17] MEDS ORDERED: Neostigmine 1mg/ml 10ml Inj ONE (11:30)
[2018-10-17] MEDS ORDERED: NS Irrig 1000ml IRRIG ONE ×4 (11:50→12:38)
[2018-10-17] MEDS ORDERED: Bacitracin 50000 Units Vial IRRIG ONE ×2 (11:50→12:37)
[2018-10-17] MEDS ORDERED: Morphine Sulfate 10mg/ml Inj ONE (12:34)
[2018-10-17] MEDS ORDERED: Glycopyrrolate 0.2mg/ml 1ml Vial ONE (12:38)
[2018-10-17] MEDS ORDERED: Ketorolac 30mg Inj ONE (12:38)
[2018-10-17] MEDS ORDERED: LR 1000ml 1,000 ML IVLG SCH (12:55)
--- NOTE | 2018-10-17 12:55 | Anethesia Preoperative Eval ---
Anesthesia Pre-op PMH/ROS General Date of Evaluation: Oct 17, 2018 Time of Evaluation: 11:10 Anesthesiologist: Roxane ASA Score: ASA 2 Mallampati Score Class I : Soft palate, uvula, fauces, pillars visible Class II: Soft palate, uvula, fauces visible Class III: Soft palate, base of uvula visible Class IV: Only hard plate visible Mallampati Classification: Class II Surgeon: Jennifer Diagnosis: Bilateral axillary HS Surgical Procedure: Closure of bilateral axillary wounds Anesthesia History: none Family History: no anesthesia problems Allergies: Coded Allergies: No Known Allergies (Unverified , 10/11/18) Medications: see eMAR Patient NPO?: Yes NPO Date: Oct 17, 2018 NPO Time: 0000 Past Medical History Cardiovascular: Denies: HTN, CAD, RI, valve dz, arrhythmia, other Pulmonary: Denies: asthma, COPD, NICK, other Gastrointestinal/Genitourinary: Reports: GERD - mild; Denies: CRI, ESRD, other Neurologic/Psychiatric: Reports: depression/anxiety; Denies: dementia, CVA, TIA, other Endocrine: Denies: DM, hypothyroidism, steroids, other HEENT: Denies: cataract (L), cataract (R), glaucoma, [place] (L), [place] (R), other Hematology/Immune: Reports: anemia - mild; Denies: DVT, bleeding disorder, other Musculoskeletal/Integumentary: Denies: OA, RA, DJD, DDD, edema, other Other: obesity PMH Narrative: as above PSxH Narrative: T&A HS treatment Anesthesia Pre-op Phys. Exam Physician Exam Last Vital Signs Date Time Temp Pulse Resp B/P (MAP) Pulse Ox O2 Delivery O2 Flow Rate FiO2 10/17/18 09:00 Room Air 10/17/18 08:00 98.5 104 19 137/99 (112) 97 10/12/18 15:15 3 Constitutional: NAD Neurologic: CN 2-12 intact Cardiovascular: RRR, no M/R/G Respiratory: CTA Gastrointestinal: S/NT/ND Airway Exam Mallampati Score: Class II MO: full Neck: flexible ROM: full Teeth: intact Dentures: no upper, no lower Anesthesia Pre-op A/P Labs see chart Risk Assessment & Plan Assessment: ASA 2 Plan: GA with ETT Status Change Before Surgery: No Pre-Antibiotics Drug: Ancef 1 gr. Given Within 1 Hr of Incision: Yes Time Given: 12:02 Gus Ovalles MD Oct 17, 2018 12:55
[2018-10-17] MEDS ORDERED: Hydromorphone 0.5mg/0.5ml inj IVP PRN (13:00)
[2018-10-17] MEDS ORDERED: DiphenhydrAMINE 50mg/ml Inj IVP PRN (13:00)
[2018-10-17] MEDS ORDERED: Meperidine 50mg/ml Inj(FOR RIGORS ONLY) IV PRN (13:00)
[2018-10-17] MEDS ORDERED: Midazolam 2mg/2ml Inj IVP PRN (13:00)
[2018-10-17] MEDS ORDERED: Metoclopramide 10mg/2ml Inj IVP PRN (13:00)
[2018-10-17] MEDS ORDERED: Acetaminophen (Non formulary) 100 ML IV ONE (13:00)
[2018-10-17] MEDS ORDERED: Ketorolac 30mg Inj IV PRN (13:00)
--- NOTE | 2018-10-17 14:33 | NUR ---
CASE MANAGEMENT:REVIEW 10/16/18 SI: POD #4 RADICAL EXCISION OF LT AXILLARY TISSUE 98.7 105 18 123/70 100% ON RA H/H-10.1/32.9 IS: IV VANCOMYCIN Q8HRS FRONT LINE LEADER DILAUDID : MED/SURG STATUS [address] [facility] PLAN: DRESSING CHANGE BID 10/17/18 SI: POD #5 RADICAL EXCISION OF LT AXILLARY TISSUE 98.5 104 19 137/99 97% ON RA IS: BACK TO SURGERY TODAY FOR: BILATERAL AXILLARY WOUND FLAP CLOSURE IV VANCOMYCIN Q8HRS FRONT LINE LEADER DILAUDID : MED/SURG STATUS [address] [facility]
--- NOTE | 2018-10-17 15:13 | Operative Note - PDOC ---
Operative Note Operative Note Pre-op Diagnosis: Bilateral axillary hidradenitis Procedure: Adjacent tissue transfer closure of bilateral axillary wounds Post-op Diagnosis: same as pre-op Surgeon: Jennifer Line Service Supervisor: Jose Anesthesia: general Specimen: yes Complications: none Estimated Blood Loss: minimal Drains: BRUCE Implant(s) used?: No Ceci Rodriguez MD Oct 17, 2018 15:13
--- NOTE | 2018-10-17 15:33 | Immediate Post-Op Evaluation ---
Immediate Post-Op Evalulation Immediate Post-Op Evalulation Procedure: Revision and closure of bilateral axillary wounds Date of Evaluation: Oct 17, 2018 Time of Evaluation: 15:32 IV Fluids: 1400 Blood Products: none Estimated Blood Loss: 100 Urinary Output: none Blood Pressure Systolic: 134 Blood Pressure Diastolic: 76 Pulse Rate: 102 Respiratory Rate: 20 O2 Sat by Pulse Oximetry: 99 Temperature (Fahrenheit): 98.7 Pain Score (1-10): 2 Nausea: No Vomiting: No Complications none Patient Status: reacts, patent, extubated, none Hydration Status: adequate Gus Ovalles MD Oct 17, 2018 15:32
[2018-10-17] MEDS: PCA HYDROmorphone 1mg/ml 30 ML IV PRN (15:41)
--- NOTE | 2018-10-17 16:45 | NUR ---
NURSE NOTES: Patient returned from surgery, accompanied by RN. Report received from Bren SHIELDS. Patient is asleep but arousable to voice, drowsy, right foot 20g IV in place, patent and asymptomatic. Patient is on ASSOCIATE PROFESSOR OF THEATRE, settings checked and verified against order, patient instructed in use. Bilateral axilla BRUCE's compressed. Patient's at bedside, updated on plan of care. Side rails upx3, bed low and locked, call light in reach. Will continue to monitor.
--- NOTE | 2018-10-17 17:11 | General Progress Note ---
Assessment/Plan Status: stable Assessment/Plan: Assessment/Plan: 28 year old female with PMH of hidradenitis suppurativa presents with complaints of b/l axillary and b/l groin pain, swelling, tenderness, purulent discharge and irritation for past 2 weeks admitted to medicine service for IV antibiotics, pain control and possible surgical intervention. #Hidradenitis suppurativa S/P radical excision of B/L axillary tissue bearing hidradenitis suppurativa POD3 #Intractable pain #Abscess -Surgery consult appreciated - -Failed multiple courses of PO and IV ABX -Ancef - Changed to Vancomycin 10/16/18 -Pain control with SOLUTIONS ANALYST -awaiting path and wound cultures - - +Staph and strep - Continue excellent postoperative care - Encourage mobilization/ambulation - Encourage incentive spirometry to optimize pulmonary hygiene - DVT/GI prophylaxis as appropriate - Pain control and supportive care -ID consult appreciated - OR on TODAY for flap inset. Full code TIme of note may not reflect time of encounter Subjective ROS Limited/Unobtainable: Yes Allergies: Coded Allergies: No Known Allergies (Unverified , 10/11/18) Objective Last 24 Hour Vital Signs Date Time Temp Pulse Resp B/P (MAP) Pulse Ox O2 Delivery O2 Flow Rate FiO2 10/17/18 16:35 15 10/17/18 16:30 98.9 10/17/18 16:20 98.9 101 20 131/60 100 Nasal Cannula 3 10/17/18 16:11 98.9 10/17/18 16:05 15 10/17/18 16:05 109 15 135/64 100 Nasal Cannula 3 10/17/18 15:55 100 20 132/71 100 Simple Mask 6 10/17/18 15:50 20 10/17/18 15:45 99 22 131/69 100 Simple Mask 6 10/17/18 15:35 101 21 134/68 100 Simple Mask 6 10/17/18 15:35 21 10/17/18 15:32 102 20 99 10/17/18 15:31 110 17 131/69 100 Simple Mask 6 10/17/18 15:26 99.2 116 22 136/72 99 Simple Mask 6 10/17/18 15:21 22 10/17/18 09:00 Room Air 10/17/18 08:00 98.5 104 19 137/99 (112) 97 10/17/18 04:00 98.4 105 18 139/87 (104) 100 10/17/18 00:00 99.1 108 18 121/61 (81) 100 10/16/18 21:00 Room Air 10/16/18 20:00 98.7 105 18 123/70 (87) 100 Intake and Output 10/16/18 10/17/18 18:59 06:59 Intake Total 300 ml Balance 300 ml Intake Oral 300 ml # Voids 2 1 Laboratory Tests 10/17/18 04:45: Vancomycin Level Trough 3.7L Height (Feet): 5 Height (Inches): 2.00 Weight (Pounds): 203 General Appearance: lethargic Cardiovascular: normal rate Respiratory/Chest: chest wall non-tender Abdomen: normal bowel sounds Neurologic: dish maker II-XII grossly normal Aren Aguirre MD Oct 17, 2018 17:11
[2018-10-17] MEDS: PCA shift volume MISC SCH (19:00)
--- NOTE | 2018-10-17 19:30 | NUR ---
HAND-OFF: Report given to Chase SHIELDS. Patient is in stable condition.
[2018-10-17] MEDS: Sennosides 8.6mg tab ORAL SCH (20:44)
--- NOTE | 2018-10-17 22:30 | Operative Note - Dictated ---
DATE OF OPERATION: 10/17/2018 PREOPERATIVE DIAGNOSIS: Bilateral open axillary wounds status post radical excision of bilateral infected hidradenitis suppurativa with flap elevation. POSTOPERATIVE DIAGNOSIS: Bilateral open axillary wounds status post radical excision of bilateral infected hidradenitis suppurativa with flap elevation. PROCEDURES: 1. Adjacent tissue transfer closure of left axillary wound measuring 20 x 15 cm using previously raised chest wall thoracodorsal artery founder flap. 2. Adjacent tissue transfer closure of right axillary wound measuring 19 x 16 cm with the ipsilateral pedicle lateral chest wall thoracodorsal artery founder flap. SURGEON: Ceci Rodriguez M.D. WATERSHED COORDINATOR: Jeffrey Palafox M.D. ANESTHESIA: General. COMPLICATIONS: None. DRAINS: Included bilateral size 15 BRUCE drains. DISPOSITION: Stable to the recovery room. INDICATIONS FOR SURGERY: This is a 28-year-old female, who is now five days status post radical excision of bilateral infected axillary hidradenitis, who has been undergoing intravenous antibiotics and dressing changes and is now stable for definitive flap transfer. The flaps had been elevated at the initial operation and placed back in situ at the donor site and now ready for adjacent tissue transfer. The patient understood the risks and benefits of surgery and agreed to proceed. DETAILS OF THE OPERATION: The patient was brought to the operating room and laid in the supine position on the operating table. Her chest and bilateral upper extremities and axilla were prepped and draped in a sterile and usual fashion. We first began on the left side where the wound was noted to be quite clean secondary to the meticulous wound care that she had been getting on the floor. The wound measured 20 x 15 cm. As stated previously, a lateral chest wall thoracodorsal artery founder flap had been designed and elevated. At the first operation, the flap measured 20 cm in length and width of 8 cm and now with the flap was noted to be viable, there was no evidence of any ischemic changes within the flap and upon confirming the viability of the flap, the flap was then transposed into the defect to allow for completion of the adjacent tissue transfer. We noted that the donor site could not be closed as they were, so flaps were elevated superiorly and inferiorly to allow for a tension-free repair. The wound was copiously irrigated with pulse lavage. A size 15 BRUCE was then placed in the wound bed. The chest wall flap was then inset into the defect. The donor site was closed using #0 and 2-0 Vicryl sutures. The flap was inset using #0 and 2-0 Vicryl sutures and the skin for both the flap and donor site were closed with a combination of running and interrupted 2-0 Prolene sutures. Bulky dressings were applied to this side and we then turned our attention to the contralateral axilla. The defect was similar in size measuring 19 x 16 cm. It was also noted to be quite clean secondary to the meticulous wound care that the patient had received on the floor. The flap was of similar dimension as well on the lateral chest wall. The flap was taken off the donor site and inset into the defect. Prior to the inset, a size 15 BRUCE had been placed on the wound bed and the wound had been copiously irrigated with pulse lavage as was done on the other side. The donor site required elevation of inferior and superior skin flaps to allow for a tension-free repair. Once the flap was inset into the defect, the donor site was closed using #0 and 2-0 Vicryl sutures. The flap was also inset into the defect to allow for completion of the adjacent tissue transfer using #0 and 2-0 Vicryl sutures and a combination of running and interrupted 2-0 Prolene sutures was used to close the skin. The patient tolerated the procedure well. There is no complications. Bulky dressings as stated were applied and the BRUCE drains also were secured in place using 3-0 nylon sutures. Ceci Rodriguez M.D. DR: PATTI JOB#: [id number] CC: SAMINA
[2018-10-18] VITALS (7 sets, daily range): BP systolic 114–141; BP diastolic 63–94
[2018-10-18] MEDS: Vancomycin 1gm/D5W 275ml IVPB SCH ×4 (00:52→09:08)
[2018-10-18 07:11] LABS: BASOPHILS % (AUTO) 0.3 % (0.0-2.0); EOSINOPHILS % (AUTO) 0.5 % (0.0-3.0); HEMATOCRIT 30.6 % (37.0-47.0); HEMOGLOBIN 9.5 G/DL (12.0-16.0); LYMPHOCYTES % (AUTO) 12.3 % (20.0-45.0); MEAN CORPUSCULAR VOLUME 71 FL (80-99); MONOCYTES % (AUTO) 5.3 % (1.0-10.0); NEUTROPHILS % (AUTO) 81.6 % (45.0-75.0); PLATELET COUNT 289 K/UL (150-450); RED BLOOD COUNT 4.33 M/UL (4.20-5.40); RED CELL DISTRIBUTION WIDTH 15.6 % (11.6-14.8); WHITE BLOOD COUNT 11.8 K/UL (4.8-10.8)
[2018-10-18 07:21] LABS: ANION GAP 9 mmol/L (5-15); BLOOD UREA NITROGEN 7 mg/dL (7-18); CALCIUM 8.1 MG/DL (8.5-10.1); CARBON DIOXIDE 25 MMOL/L (21-32); CHLORIDE 101 MMOL/L (98-107); SODIUM 134 MMOL/L (136-145)
[2018-10-18] MEDS: PCA shift volume MISC SCH ×2 (07:27→19:23)
--- NOTE | 2018-10-18 07:59 | NUR ---
NURSE NOTES: Received report from Chase SHIELDS. Patient is awake during rounds, no acute distress noted. Reporting pain is well managed with METAL TUBE CUTTER at this time. METAL TUBE CUTTER settings checked and verified against order. Right foot IV intact, asymptomatic. Bilateral axilla BRUCE's compressed. dressing clean, dry intact. All needs met at this time, updated on plan of care. Patient's at bedside. Side rails upx2, bed low and locked, call light in reach. Will continue to monitor.
[2018-10-18 08:01] LABS: CREATININE 0.9 MG/DL (0.55-1.30)
--- NOTE | 2018-10-18 09:01 | 48 Hour Post Anesthesia Eval ---
Post Anesthesia Evaluation Procedure: Revision and closure of bilateral axillary wounds Date of Evaluation: Oct 18, 2018 Time of Evaluation: 08:59 Blood Pressure Systolic: 118 0: 72 Pulse Rate: 68 Respiratory Rate: 20 Temperature (Fahrenheit): 97.6 O2 Sat by Pulse Oximetry: 98 Airway: patent Nausea: No Vomiting: No Pain Intensity: 2 Hydration Status: adequate Cardiopulmonary Status: stable Mental Status/LOC: patient returned to baseline Follow-up Care/Observations: n/a Post-Anesthesia Complications: none Follow-up care needed: N/A Gus Ovalles MD Oct 18, 2018 09:01
[2018-10-18] MEDS: Heparin 5000 units/ml inj SUBQ SCH ×2 (09:07→21:18)
[2018-10-18] MEDS: Docusate 100mg cap ORAL SCH ×2 (09:08→17:23)
--- NOTE | 2018-10-18 12:52 | NUR ---
NURSE NOTES: Per order from Dr. Rodriguez patient may be up to chair only with assist. MD ordered for patient not to bear weight on her arms when getting OOB. Order entered, will carry out.
--- NOTE | 2018-10-18 12:58 | General Progress Note ---
Progress Note Progress Note Pt seen and examined. POD # 6 and # 1 from closure of bilateral axillary wounds. Doing well and pain well controlled. Dressings are CDI Drain output about 40cc on each side as per the nurse. Continue IV abx and COIL WINDER REPAIR. Will take down the dressings on Thur. Ceci Mead MD, MD Oct 18, 2018 12:58
--- NOTE | 2018-10-18 12:59 | NUR ---
NURSE NOTES: After seeing patient, Dr. Rodriguez stated patient may ambulate, MD still does not want patient bearing any weight on her arms. MD also ordered for a case management consult for home health with wound care. All orders entered. Will continue to follow up as needed.
--- NOTE | 2018-10-18 13:28 | NUR ---
RD ASSESSMENT & RECOMMENDATIONS SEE CARE ACTIVITY FOR COMPLETE ASSESSMENT DAILY ESTIMATED NEEDS: Needs based on Surgery, 59kg adj 25-30 kcals/kg [id number] total kcals 1.25-2 g protein/kg 74-118 g total protein 25-30 mL/kg [id number] total fluid mLs NUTRITION DIAGNOSIS: Increased pro needs r/t surgical wound healing as evidenced by s/p excision and now closure of BL axillary wounds. PO DIET RECOMMENDATIONS: Regular as tolerated ADDITIONAL RECOMMENDATIONS: 1) Obtain an updated and standing weight as able 2) LACEY BID for surgical wound healing Add VIT C 250mg BID Add MVI w/ Min x1 daily 3)High protein snacks in b/w meals upon request
--- NOTE | 2018-10-18 13:59 | NUR ---
CASE MANAGEMENT:REVIEW 10/18/18 SI: POD #6 AND POD #1 RADICAL EXCISION OF LT AXILLARY TISSUE 98.5 99 19 114/76 99% RA WBC+11.8 IS: IV VANCOMYCIN Q8HRS BIBLE WORKER DILAUDID HEPARIN SQ Q12 : MED/SURG STATUS 3 [facility]
--- NOTE | 2018-10-18 14:26 | NUR ---
*-* INSURANCE *-* UPDATED CLINICALS HAVE BEEN FAXED TO: [facility] F:[phone]
--- NOTE | 2018-10-18 14:36 | Infectious Diseases Prog Note ---
Assessment/Plan Assessment/Plan ASSESSMENT AND PLAN: 1. streptococcus viridans/diphtheroids/classification counselor bilateral axilla infected wounds and infected hidradenitis suppurativa - s/p debridement and excision - s/p wound closure - vancomycin - wound care per plastic surgery - monitor labs, creatinine - monitor lgt and mild leukocytosis 2. No other significant past medical history. 3. Pain management per primary team and Surgery. 4. Wound care per Surgery. 5. Anemia. 6. No known allergies. 7. Social history is negative. 8. Family history is noncontributory. 9. MAR was noted. 10. Case discussed with RN. 11. Continue treatment per primary consultants. Subjective Constitutional: Denies: fever HEENT: Denies: congestion Respiratory: Denies: shortness of breath Cardiovascular: Denies: chest pain Gastrointestinal/Abdominal: Denies: nausea, vomiting, diarrhea Genitourinary: Reports: other - no saha Neurologic: Denies: headache Psychiatric: Denies: depression Skin: Denies: rash Hematologic: Denies: bleeding Musculoskeletal: Denies: pain Allergies: Coded Allergies: No Known Allergies (Unverified , 10/11/18) Objective Vital Signs Last 24 Hour Vital Signs Date Time Temp Pulse Resp B/P (MAP) Pulse Ox O2 Delivery O2 Flow Rate FiO2 10/18/18 12:00 19 10/18/18 11:50 98.5 99 19 114/76 (89) 99 10/18/18 09:01 68 20 98 10/18/18 09:00 Room Air 10/18/18 08:00 98.5 92 20 118/63 (81) 96 10/18/18 08:00 20 10/18/18 07:28 99.4 10/18/18 04:00 15 10/18/18 04:00 99.5 112 19 134/76 (95) 97 10/18/18 00:00 99.0 106 19 138/66 (90) 97 10/18/18 00:00 15 10/17/18 21:00 Room Air 10/17/18 20:00 97.7 95 19 129/71 (90) 97 10/17/18 20:00 15 10/17/18 18:30 97.7 69 19 109/67 (81) 98 10/17/18 17:30 97.9 91 18 114/64 (81) 97 10/17/18 17:10 15 10/17/18 17:00 98.2 95 19 113/58 (76) 96 10/17/18 16:35 15 10/17/18 16:30 98.9 10/17/18 16:30 97.1 101 21 119/71 (87) 97 10/17/18 16:20 98.9 101 20 131/60 100 Nasal Cannula 3 10/17/18 16:11 98.9 10/17/18 16:05 15 10/17/18 16:05 109 15 135/64 100 Nasal Cannula 3 10/17/18 15:55 100 20 132/71 100 Simple Mask 6 10/17/18 15:50 20 10/17/18 15:45 99 22 131/69 100 Simple Mask 6 10/17/18 15:35 101 21 134/68 100 Simple Mask 6 10/17/18 15:35 21 10/17/18 15:32 102 20 99 10/17/18 15:31 110 17 131/69 100 Simple Mask 6 10/17/18 15:26 99.2 116 22 136/72 99 Simple Mask 6 10/17/18 15:21 22 Height (Feet): 5 Height (Inches): 2.00 Weight (Pounds): 203 General Appearance: no acute distress HEENT: normocephalic, atraumatic, anicteric, mucous membranes moist Respiratory/Chest: lungs clear, normal breath sounds, no respiratory distress, no accessory muscle use Cardiovascular: normal rate, regular rhythm, no gallop/murmur, no JVD Abdomen: normal bowel sounds, soft, non tender, no organomegaly, non distended Genitourinary: other - no saha Extremities: no cyanosis Skin: no rash Neurologic/Psychiatric: washery boss II-XII grossly normal, alert, responsive Lymphatic: no neck adenopathy Musculoskeletal: no effusion Objective no imaging Microbiology Date/Time Source Procedure Growth Status 10/11/18 13:58 Blood Blood Culture - Final NO GROWTH AFTER 5 DAYS Complete 10/12/18 12:58 Axilla Right Gram Stain - Final Complete 10/12/18 12:58 Aerobic Culture - Final Diphtheroids Staphylococcus Sp Coag Neg Streptococcus Viridans Complete 10/12/18 12:58 Axilla Right Anaerobic Culture - Final NO ANAEROBES ISOLATED Complete Laboratory Tests Test 10/18/18 05:15 White Blood Count 11.8 K/UL (4.8-10.8) H Red Blood Count 4.33 M/UL (4.20-5.40) Hemoglobin 9.5 G/DL (12.0-16.0) L Hematocrit 30.6 % (37.0-47.0) L Mean Corpuscular Volume 71 FL (80-99) L Mean Corpuscular Hemoglobin 21.9 PG (27.0-31.0) L Mean Corpuscular Hemoglobin Concent 31.0 G/DL (32.0-36.0) L Red Cell Distribution Width 15.6 % (11.6-14.8) H Platelet Count 289 K/UL (150-450) Mean Platelet Volume 7.0 FL (6.5-10.1) Neutrophils (%) (Auto) 81.6 % (45.0-75.0) H Lymphocytes (%) (Auto) 12.3 % (20.0-45.0) L Monocytes (%) (Auto) 5.3 % (1.0-10.0) Eosinophils (%) (Auto) 0.5 % (0.0-3.0) Basophils (%) (Auto) 0.3 % (0.0-2.0) Sodium Level 134 MMOL/L (136-145) L Potassium Level 4.0 MMOL/L (3.5-5.1) Chloride Level 101 MMOL/L (98-107) Carbon Dioxide Level 25 MMOL/L (21-32) Anion Gap 9 mmol/L (5-15) Blood Urea Nitrogen 7 mg/dL (7-18) Creatinine 0.9 MG/DL (0.55-1.30) Estimat Glomerular Filtration Rate > 60 mL/min (>60) Glucose Level 118 MG/DL (74-106) H Calcium Level 8.1 MG/DL (8.5-10.1) L Current Medications Medications (Trade) Dose Ordered Sig/Lalit Route PRN Reason Start Time Stop Time Status Last Admin Dose Admin Acetaminophen (Tylenol) 650 mg Q4H PRN ORAL FEVER 10/17/18 12:00 11/16/18 11:59 10/18/18 06:30 Dextrose (Dextrose 50%) 25 ml Q30M PRN IV Hypoglycemia 10/11/18 18:30 11/10/18 18:29 Dextrose (Dextrose 50%) 50 ml Q30M PRN IV Hypoglycemia 10/11/18 18:30 11/10/18 18:29 Diphenhydramine HCl (Benadryl) 12.5 mg Q6H PRN IVP Itching/Pruritis 10/12/18 11:15 11/11/18 11:14 Docusate Sodium (Colace) 100 mg TWICE A DAY ORAL 10/17/18 18:00 11/16/18 17:59 10/18/18 09:08 Heparin Sodium (Porcine) (Heparin 5000 units/ml) 5,000 units EVERY 12 HOURS SUBQ 10/17/18 21:00 11/16/18 20:59 10/18/18 09:07 Hydromorphone HCl 30 ml @ 0 mls/hr Q24H PRN IV For Pain 10/17/18 12:00 10/19/18 11:59 10/17/18 15:41 Magnesium Hydroxide (Mom) 30 ml DAILYPRN PRN ORAL Constipation 10/16/18 13:15 11/15/18 13:14 10/16/18 13:22 Miscellaneous Medication (CHIEF INSPECTOR Rate Change) 1 ea DAILY PRN MISC rate change 10/17/18 11:30 10/19/18 11:29 Miscellaneous Medication (CHIEF INSPECTOR shift volume) 1 ea Q12HR@0700,1900 MISC 10/17/18 19:00 10/19/18 18:59 10/18/18 07:27 Naloxone HCl (Narcan) 0.1 mg PRN IV . 10/17/18 11:15 10/19/18 11:14 Ondansetron HCl (Zofran) 4 mg Q6H PRN IVP Nausea & Vomiting 10/17/18 12:00 11/16/18 11:59 10/17/18 20:00 Sennosides (Senokot) 17.2 mg QHS ORAL 10/16/18 21:00 11/15/18 20:59 10/17/18 20:44 Vancomycin HCl (Vanco rx to dose) 1 ea DAILY PRN MISC Per rx protocol 10/15/18 12:15 11/14/18 12:14 Vancomycin HCl 1 gm/Dextrose 275 ml @ 183.708 mls/hr Q8H IVPB 10/18/18 01:00 10/23/18 00:59 10/18/18 09:08 Zolpidem Tartrate (Ambien) 5 mg QHS PRN ORAL Insomnia 10/17/18 21:00 10/24/18 20:59 Nate Gomes MD Oct 18, 2018 14:36
--- NOTE | 2018-10-18 15:33 | NUR ---
NURSE NOTES: Patient requested for RN to come to room due to report of feeling febrile. Assessed patient's temp, temp 101.2. Administered Tylenol per order and encouraged patient to continue using IS and walk as tolerated. Will reassess.
--- NOTE | 2018-10-18 16:41 | NUR ---
NURSE NOTES: Dr. Aguirre here to see patient. Informed MD of patient's fever and tachycardia. MD ordered to keep encouraging patient to use IS and ambulate as tolerated, no further orders. Will follow up as needed.
--- NOTE | 2018-10-18 17:06 | General Progress Note ---
Assessment/Plan Status: stable Assessment/Plan: Assessment/Plan: 28 year old female with PMH of hidradenitis suppurativa presents with complaints of b/l axillary and b/l groin pain, swelling, tenderness, purulent discharge and irritation for past 2 weeks admitted to medicine service for IV antibiotics, pain control and possible surgical intervention. #Hidradenitis suppurativa S/P radical excision of B/L axillary tissue bearing hidradenitis suppurativa #Intractable pain #Abscess -Surgery consult appreciated - -Failed multiple courses of PO and IV ABX -Ancef - Changed to Vancomycin 10/16/18 - Fever noted today. Resolved after APAP. MONITOR. Discussed IS use, hydration and mobility. -Pain control with PROFILER -awaiting path and wound cultures - - +Staph and strep - Continue excellent postoperative care - Encourage mobilization/ambulation - Encourage incentive spirometry to optimize pulmonary hygiene - DVT/GI prophylaxis as appropriate - Pain control and supportive care -ID consult appreciated - POD # 6 and # 1 from closure of bilateral axillary wounds by Dr. Rodriguez - Monitor drainage Full code TIme of note may not reflect time of encounter Subjective ROS Limited/Unobtainable: Yes Allergies: Coded Allergies: No Known Allergies (Unverified , 10/11/18) All Systems: reviewed and negative except above Subjective working with IS but limited success due to axillary discomfort and pain. Ambulatory Denies fever chills or dysuria Pain is well controlled with PROFILER Objective Last 24 Hour Vital Signs Date Time Temp Pulse Resp B/P (MAP) Pulse Ox O2 Delivery O2 Flow Rate FiO2 10/18/18 16:00 20 10/18/18 15:54 99.5 113 20 141/94 (110) 96 10/18/18 15:54 99.5 10/18/18 15:19 101.2 10/18/18 12:00 19 10/18/18 11:50 98.5 99 19 114/76 (89) 99 10/18/18 09:01 68 20 98 10/18/18 09:00 Room Air 10/18/18 08:00 98.5 92 20 118/63 (81) 96 10/18/18 08:00 20 10/18/18 04:00 15 10/18/18 04:00 99.5 112 19 134/76 (95) 97 10/18/18 00:00 99.0 106 19 138/66 (90) 97 10/18/18 00:00 15 10/17/18 21:00 Room Air 10/17/18 20:00 97.7 95 19 129/71 (90) 97 10/17/18 20:00 15 10/17/18 18:30 97.7 69 19 109/67 (81) 98 10/17/18 17:30 97.9 91 18 114/64 (81) 97 10/17/18 17:10 15 10/17/18 17:00 98.2 95 19 113/58 (76) 96 Intake and Output 10/17/18 10/18/18 18:59 06:59 Intake Total 2300 ml 360 ml Output Total 180 ml 60 ml Balance 2120 ml 300 ml Intake Oral 300 ml 360 ml IV Total 2000 ml Drainage Total 80 ml 60 ml Estimated Blood Loss 100 ml # Voids 1 2 # Bowel Movements 1 Laboratory Tests 10/18/18 05:15: White Blood Count 11.8H, Red Blood Count 4.33, Hemoglobin 9.5L, Hematocrit 30.6L , Mean Corpuscular Volume 71L, Mean Corpuscular Hemoglobin 21.9L, Mean Corpuscular Hemoglobin Concent 31.0L, Red Cell Distribution Width 15.6H, Platelet Count 289, Mean Platelet Volume 7.0, Neutrophils (%) (Auto) 81.6H, Lymphocytes (%) (Auto) 12.3L, Monocytes (%) (Auto) 5.3, Eosinophils (%) (Auto) 0.5, Basophils (%) (Auto) 0.3, Sodium Level 134L, Potassium Level 4.0, Chloride Level 101, Carbon Dioxide Level 25, Anion Gap 9, Blood Urea Nitrogen 7, Creatinine 0.9, Estimat Glomerular Filtration Rate > 60, Glucose Level 118H, Calcium Level 8.1L 10/18/18 16:20: Vancomycin Level Trough [Pending] Height (Feet): 5 Height (Inches): 2.00 Weight (Pounds): 203 General Appearance: WD/WN, no apparent distress, alert EENT: PERRL/EOMI Neck: non-tender, normal alignment Cardiovascular: normal peripheral pulses, normal rate Respiratory/Chest: chest wall non-tender, normal breath sounds Abdomen: normal bowel sounds Neurologic: client hr manager II-XII grossly normal Skin: normal pigmentation, other - bilateral axillary drainage in place Aren Aguirre MD Oct 18, 2018 17:06
[2018-10-18] MEDS: Vancomycin 1.25gm Premix IVPB SCH ×2 (18:25→23:41)
--- NOTE | 2018-10-18 19:30 | NUR ---
HAND-OFF: Report given to Lupe SHIELDS. Patient is in stable condition.
--- NOTE | 2018-10-18 19:31 | NUR ---
NURSE NOTES: Received report & pt from CORNELIUS Hansen. Pt lying in bed, a&ox4, in room air. No s/s of acute distress & no c/o pain at this time. BRUCE drain x2 to bulb suction & intact. Surgical dressing C/D/I. IV site intact. VAMP MAKER setting checked. Bed in lowest position, call light & VAMP MAKER pump within reach. Will continue to monitor.
[2018-10-18] MEDS: Sennosides 8.6mg tab ORAL SCH (21:17)
[2018-10-19] MEDS: Zolpidem 5mg tab ORAL PRN ×2 (01:11→20:35)
[2018-10-19 04:30] VITALS: BP 112/64
[2018-10-19] MEDS: PCA HYDROmorphone 1mg/ml 30 ML IV PRN ×3 (04:35→15:05)
[2018-10-19] MEDS: Vancomycin 1.25gm Premix IVPB SCH (05:30)
[2018-10-19 07:22] LABS: BASOPHILS % (AUTO) 0.7 % (0.0-2.0); EOSINOPHILS % (AUTO) 2.5 % (0.0-3.0); HEMATOCRIT 27.9 % (37.0-47.0); HEMOGLOBIN 8.6 G/DL (12.0-16.0); LYMPHOCYTES % (AUTO) 16.9 % (20.0-45.0); MEAN CORPUSCULAR VOLUME 71 FL (80-99); MONOCYTES % (AUTO) 5.3 % (1.0-10.0); NEUTROPHILS % (AUTO) 74.6 % (45.0-75.0); PLATELET COUNT 275 K/UL (150-450); RED BLOOD COUNT 3.95 M/UL (4.20-5.40); RED CELL DISTRIBUTION WIDTH 15.4 % (11.6-14.8); WHITE BLOOD COUNT 11.3 K/UL (4.8-10.8)
[2018-10-19] MEDS: PCA shift volume MISC SCH ×2 (07:25→19:00)
--- NOTE | 2018-10-19 07:27 | NUR ---
HAND-OFF: Report given to CORNELIUS Delaney. Rounds done. Pt in stable condition.
--- NOTE | 2018-10-19 07:49 | NUR ---
NURSE NOTES: Pt sleeping. TIP OUT WORKER to be discontinued today. Call light is in reach. is at bedside. Will be monitored for for s/s of infection 2 to previous report of elevated temperature.
[2018-10-19 08:00] VITALS: BP 115/66
[2018-10-19] MEDS: Docusate 100mg cap ORAL SCH ×2 (09:09→18:01)
[2018-10-19] MEDS: Heparin 5000 units/ml inj SUBQ SCH ×2 (09:10→20:32)
--- NOTE | 2018-10-19 09:39 | NUR ---
CASE MANAGEMENT:REVIEW 10/19/18 SI: POD #7 AND POD #2 RADICAL EXCISION OF LT AXILLARY TISSUE 100.3 107 16 112/64 96% ON RA WBC+11.3 H/H-8.6/27.9 IS: IV VANCOMYCIN Q6HRS GLOBAL PROGRAM DIRECTOR DILAUDID HEPARIN SQ Q12 : MED/SURG STATUS 3 EAST DCP: WILL RETURN HOME TO [place] PLAN: PATIENT WILL REQUIRE HOME HEALTH SERVICES FOR WOUND CARE ONCE SHE RETURNS TO [place]
--- NOTE | 2018-10-19 09:44 | General Progress Note ---
Progress Note Progress Note Pt seen and examined. POD# 2 from closure of axillary wounds. Comfortable and pain well controlled. Plan for removal of dressings. MD Jennifer Carlson Amir MD Oct 19, 2018 09:44
--- NOTE | 2018-10-19 10:54 | NUR ---
NURSE NOTES: Pt sleeping. Has been sleep since start of shift, easy to arouse. remains at bedside.
[2018-10-19 12:00] VITALS: BP 108/67
[2018-10-19] MEDS ORDERED: Naloxone 0.4mg/ml Inj IV PRN (13:00)
--- NOTE | 2018-10-19 13:23 | NUR ---
*-* INSURANCE *-* UPDATED CLINICALS and REVIEWS HAVE BEEN FAXED TO: [facility] F:[phone] Addendum: 10/19/18 at 1540 by DAMARIS CRAIG LVN LVN SELECT RV MECHANIC [facility] T: [phone]
[2018-10-19] MEDS ORDERED: Rate Change PCA 1 Each MISC PRN (13:45)
[2018-10-19] MEDS: Vancomycin 1gm/D5W 275ml IVPB SCH ×4 (15:08→20:30)
--- NOTE | 2018-10-19 15:47 | NUR ---
DISCHARGE PLANNING DENTAL THERAPIST CONTACTED PATIENT'S INSURANCE AND REFERRED HER TO: [facility] T: [phone] F: [phone] CLINICALS AND ORDER FAXED
[2018-10-19 16:00] VITALS: BP 110/66
--- NOTE | 2018-10-19 17:07 | General Progress Note ---
Assessment/Plan Status: stable Assessment/Plan: Assessment/Plan: 28 year old female with PMH of hidradenitis suppurativa presents with complaints of b/l axillary and b/l groin pain, swelling, tenderness, purulent discharge and irritation for past 2 weeks admitted to medicine service for IV antibiotics, pain control and possible surgical intervention. #Hidradenitis suppurativa S/P radical excision of B/L axillary tissue bearing hidradenitis suppurativa #Intractable pain #Abscess -Surgery consult appreciated - -Failed multiple courses of PO and IV ABX -Ancef - Changed to Vancomycin 10/16/18 - Fever noted today. Resolved after APAP. MONITOR. Discussed IS use, hydration and mobility. -Pain control with NATUROPATHIC PHYSICIAN -awaiting path and wound cultures - - +Staph and strep, diphteroides - Continue excellent postoperative care - Encourage mobilization/ambulation - Encourage incentive spirometry to optimize pulmonary hygiene - DVT/GI prophylaxis as appropriate - Pain control and supportive care -ID consult appreciated - POD # 7 and # 2 from closure of bilateral axillary wounds by Dr. Rodriguez - Monitor drainage 140 ml last documentation. Full code TIme of note may not reflect time of encounter Subjective ROS Limited/Unobtainable: No Constitutional: Reports: no symptoms Cardiovascular: Reports: no symptoms Respiratory: Reports: no symptoms Genitourinary: Reports: no symptoms Neurologic/Psychiatric: Reports: no symptoms Endocrine: Reports: no symptoms Allergies: Coded Allergies: No Known Allergies (Unverified , 10/11/18) Subjective working with IS but limited success due to axillary discomfort and pain. Ambulatory Denies fever chills or dysuria Pain is well controlled with NATUROPATHIC PHYSICIAN Objective Last 24 Hour Vital Signs Date Time Temp Pulse Resp B/P (MAP) Pulse Ox O2 Delivery O2 Flow Rate FiO2 10/19/18 12:35 16 10/19/18 12:30 14 10/19/18 12:00 99.4 104 16 108/67 (81) 10/19/18 09:00 Room Air 10/19/18 08:00 98.8 76 18 115/66 (82) 96 10/19/18 04:30 99.5 107 16 112/64 (80) 96 10/19/18 04:30 16 10/19/18 00:30 100.3 10/19/18 00:10 100.3 7/17/19 00:00 17 10/18/18 23:30 100.5 109 18 135/68 (90) 98 10/18/18 21:00 Room Air 10/18/18 20:00 16 10/18/18 20:00 99.4 110 17 138/68 (91) 96 Intake and Output 10/18/18 10/19/18 19:00 07:00 Intake Total 975 ml 500 ml Output Total 80 ml 140 ml Balance 895 ml 360 ml Intake Oral 700 ml 500 ml IV Total 275 ml Drainage Total 80 ml 140 ml # Voids 3 2 Laboratory Tests 10/19/18 05:55: White Blood Count 11.3H, Red Blood Count 3.95L, Hemoglobin 8.6L, Hematocrit 27.9L, Mean Corpuscular Volume 71L, Mean Corpuscular Hemoglobin 21.8L, Mean Corpuscular Hemoglobin Concent 30.8L, Red Cell Distribution Width 15.4H, Platelet Count 275, Mean Platelet Volume 6.5, Neutrophils (%) (Auto) 74.6, Lymphocytes (%) (Auto) 16.9L, Monocytes (%) (Auto) 5.3, Eosinophils (%) (Auto) 2.5, Basophils (%) (Auto) 0.7 10/19/18 10:50: Vancomycin Level Trough 17.5H Height (Feet): 5 Height (Inches): 2.00 Weight (Pounds): 201 General Appearance: WD/WN Neck: non-tender, normal alignment Cardiovascular: normal rate Respiratory/Chest: lungs clear Abdomen: non tender Neurologic: machine setter II-XII grossly normal Skin: normal pigmentation Aren Aguirre MD Oct 19, 2018 17:07
--- NOTE | 2018-10-19 18:23 | NUR ---
NURSE NOTES: DERRICKMAN HELPER pump administered twice by error. Correction made pharmacy made aware. Pt in bed new iv line started to left wrist 24 gauge
--- NOTE | 2018-10-19 18:25 | NUR ---
NURSE NOTES: No possible side effects related to antibiotic use noted or reported
--- NOTE | 2018-10-19 19:07 | NUR ---
NURSE NOTES: Pt Erick Forbes emptied 70 cc to rt drain and 60 cc to left drain total for the shift
--- NOTE | 2018-10-19 19:38 | NUR ---
NURSE NOTES: is at bedside. Did not have elevated temperature this shift. New iv site patent and functioning
--- NOTE | 2018-10-19 19:39 | NUR ---
HAND-OFF: Report given to Lupe SHIELDS .
--- NOTE | 2018-10-19 19:40 | NUR ---
NURSE NOTES: Received report & pt from CORNELIUS Delaney. Pt in bathroom, a&ox4, in room air. No s/s of acute distress & no c/o pain at this time. BRUCE drain x2 to bulb suction & intact. Surgical dressing C/D/I. IV site intact. RECRUITMENT ADVERTISING MANAGER setting checked. Bed in lowest position, call light & RECRUITMENT ADVERTISING MANAGER pump within reach. Will continue to monitor.
[2018-10-19 20:30] VITALS: BP 137/76
[2018-10-19] MEDS: Sennosides 8.6mg tab ORAL SCH ×2 (20:31→20:37)
--- NOTE | 2018-10-19 21:08 | NUR ---
NURSE NOTES: Oral temp 101.3; Cooling measures provided & encouraged IS use. Called Dr. Gomes to inform of pt's temp. Tylenol 650mg PO PRN given @ 2030; Will recheck temp in a few mins & will continue to monitor.
--- NOTE | 2018-10-19 21:12 | NUR ---
NURSE NOTES: Dr. Gomes called back with new orders (1) Blood culture x2 STAT (2) UA with culture (3) CXR to rule out pneumonia can be done tomorrow in AM. Orders carried out.
--- NOTE | 2018-10-19 21:50 | NUR ---
NURSE NOTES: Urine specimen sent down to lab.
[2018-10-19 22:05] LABS: APPEARANCE,URINE CLEAR; BILIRUBIN, URINE NEGATIVE (NEGATIVE); COLOR,URINE PALE YELLOW; GLUCOSE, URINE (UA) NEGATIVE (NEGATIVE); KETONES,URINE NEGATIVE (NEGATIVE); LEUKOCYTE ESTERASE ,URINE 2+ (NEGATIVE); NITRITE,URINE NEGATIVE (NEGATIVE); PH,URINE 7 (4.5-8.0); PROTEIN,URINE NEGATIVE (NEGATIVE); UROBILINOGEN,URINE NORMAL MG/DL (0.0-1.0)
[2018-10-20] VITALS (7 sets, daily range): BP systolic 112–159; BP diastolic 62–83
[2018-10-20] MEDS: Vancomycin 1gm/D5W 275ml IVPB SCH ×4 (03:39→09:28)
[2018-10-20 07:08] LABS: BASOPHILS % (AUTO) 0.6 % (0.0-2.0); EOSINOPHILS % (AUTO) 3.4 % (0.0-3.0); HEMATOCRIT 30.3 % (37.0-47.0); HEMOGLOBIN 9.6 G/DL (12.0-16.0); LYMPHOCYTES % (AUTO) 19.3 % (20.0-45.0); MEAN CORPUSCULAR VOLUME 70 FL (80-99); MONOCYTES % (AUTO) 7.4 % (1.0-10.0); NEUTROPHILS % (AUTO) 69.3 % (45.0-75.0); PLATELET COUNT 326 K/UL (150-450); RED BLOOD COUNT 4.34 M/UL (4.20-5.40); RED CELL DISTRIBUTION WIDTH 15.1 % (11.6-14.8); WHITE BLOOD COUNT 9.7 K/UL (4.8-10.8)
[2018-10-20 07:18] LABS: ANION GAP 8 mmol/L (5-15); BLOOD UREA NITROGEN 11 mg/dL (7-18); CARBON DIOXIDE 28 MMOL/L (21-32); CHLORIDE 103 MMOL/L (98-107); CREATININE 0.7 MG/DL (0.55-1.30); POTASSIUM 3.7 MMOL/L (3.5-5.1); SODIUM 138 MMOL/L (136-145)
[2018-10-20] MEDS: PCA shift volume MISC SCH ×2 (07:28→19:16)
--- NOTE | 2018-10-20 07:32 | NUR ---
HAND-OFF: Report given to CORNELIUS Mcclure. Pt in stable condition. Rounds done.
--- NOTE | 2018-10-20 07:35 | NUR ---
NURSE NOTES: WALKING ROUNDS DONE WITH OUTGOING RN.PATIENT AWAKE IN BED. QUESTIONS ANSWERED,NEEDS MET AT THIS TIME. DISCUSSED PLAN OF CARE FOR THE DAY. BILATERAL AXILLA DRSG C/D/I. PATIENT ABLE TO MOVE BUE WITH LIMITED MOVEMENT. STATES PAIN IS MODERATELY CONTROLLED WITH PROGRAM PRODUCTION SPECIALIST. BED IN LOWEST LOCKED POSITION, CALL LIGHT WITHIN REACH.
--- NOTE | 2018-10-20 09:22 | NUR ---
RADIOLOGY DEPT., CHEST X-RAY DONE BY Sil).TAYLOR
[2018-10-20] MEDS: Docusate 100mg cap ORAL SCH ×2 (09:28→17:36)
[2018-10-20] MEDS: Heparin 5000 units/ml inj SUBQ SCH ×2 (09:32→21:41)
--- NOTE | 2018-10-20 11:22 | General Progress Note ---
Progress Note Progress Note Pt seen and examined. POD# 3 from flap closure of bilateral axillary wounds. Doing well. Dressings taken down. Left axillary flap looks completely viable and healthy. Right one is viable and alive with some areas of epidermolysis medially. Good cap refill. No cellulitis. Overall doing well. Continue FUR OPERATOR for now and IV abx. Will likely DC jose j drains in AM. MD Jennifer Carlson Amir MD Oct 20, 2018 11:22
--- NOTE | 2018-10-20 13:15 | Diagnostic Imaging Report ---
Indication: Dyspnea Comparison: None A single view chest radiograph was obtained. Findings: Cardiomediastinal appearance is within normal limits for age. The lungs are clear. Pulmonary vascularity is appropriate. The diaphragmatic contour is smooth and costophrenic angles are sharp. No pleural effusions are identified. The bones are unremarkable. Impression: No acute findings
--- NOTE | 2018-10-20 14:40 | NUR ---
CASE MANAGEMENT:REVIEW 10/20/18 SI: POD #8 AND POD #3 RADICAL EXCISION OF LT AXILLARY TISSUE 97.8 86 20 148/74 100% ON RA H/H-9.6/30.3 IS: IV VANCOMYCIN Q6HRS SPRAY GUNNER DILAUDID HEPARIN SQ Q12 : MED/SURG STATUS 3 EAST DCP: WILL RETURN HOME TO [place] PLAN: PATIENT WILL REQUIRE HOME HEALTH SERVICES FOR WOUND CARE ONCE SHE RETURNS TO [place] REFERRED TO [facility] T: [phone]
--- NOTE | 2018-10-20 14:45 | NUR ---
DISCHARGE PLANNING PATIENT HAS BEEN REFERRED TO [facility] [place] [facility] T: [phone] F: [phone] RECEIVED CALL FROM MARLENY WITH [facility] STATING THEY WILL ACCEPT PATIENT WHEN SHE RETURNS TO [place]
--- NOTE | 2018-10-20 16:07 | NUR ---
*-* INSURANCE *-* UPDATED CLINICALS and REVIEWS HAVE BEEN FAXED TO: [facility] F:[phone]
[2018-10-20] MEDS: Vancomycin 750mg/NS 275ml IVPB SCH ×4 (16:50→21:47)
[2018-10-20] MEDS ORDERED: Tubing IV Secondary IV ONE (17:25)
[2018-10-20] MEDS ORDERED: NS 275ml ONE (17:25)
--- NOTE | 2018-10-20 17:40 | General Progress Note ---
Assessment/Plan Status: stable Assessment/Plan: Assessment/Plan: 28 year old female with PMH of hidradenitis suppurativa presents with complaints of b/l axillary and b/l groin pain, swelling, tenderness, purulent discharge and irritation for past 2 weeks admitted to medicine service for IV antibiotics, pain control and possible surgical intervention. #Hidradenitis suppurativa S/P radical excision of B/L axillary tissue bearing hidradenitis suppurativa #Intractable pain #Abscess -Surgery consult appreciated - -Failed multiple courses of PO and IV ABX -Ancef - Changed to Vancomycin 10/16/18 - Fever noted today. Resolved after APAP. MONITOR. Discussed IS use, hydration and mobility. -Pain control with LEVER TENDER -awaiting path and wound cultures - - +Staph and strep, diphteroides - Continue excellent postoperative care - Encourage mobilization/ambulation - Encourage incentive spirometry to optimize pulmonary hygiene - DVT/GI prophylaxis as appropriate - Pain control and supportive care -ID consult appreciated - POD # 8 and # 3 from closure of bilateral axillary wounds by Dr. Rodriguez - Monitor drainage and surgery to remove drains probably in AM then will transition LEVER TENDER to OFF and start oral pain management. Full code TIme of note may not reflect time of encounter Subjective Allergies: Coded Allergies: No Known Allergies (Unverified , 10/11/18) All Systems: reviewed and negative except above Subjective working with IS up to 3500 ml AMbulatory Denies fever chills or dysuria Pain is well controlled with LEVER TENDER Objective Last 24 Hour Vital Signs Date Time Temp Pulse Resp B/P (MAP) Pulse Ox O2 Delivery O2 Flow Rate FiO2 10/20/18 16:00 18 10/20/18 16:00 97.8 92 18 131/68 (89) 98 10/20/18 12:00 97.8 86 18 148/74 (98) 100 10/20/18 12:00 20 10/20/18 10:10 98.2 10/20/18 09:00 Room Air 10/20/18 08:00 18 10/20/18 08:00 98.2 99 18 115/73 (87) 96 10/20/18 04:00 98.0 93 17 112/62 (79) 96 10/20/18 04:00 17 10/20/18 00:00 20 10/20/18 00:00 98.2 108 20 119/73 (88) 98 10/19/18 21:30 99.8 10/19/18 21:00 Room Air 10/19/18 20:30 101.3 112 20 137/76 (96) 100 10/19/18 20:00 17 Intake and Output 10/19/18 10/20/18 19:00 07:00 Intake Total 367.416 ml 360 ml Output Total 145 ml Balance 367.416 ml 215 ml Intake Oral 360 ml IV Total 367.416 ml Drainage Total 145 ml # Voids 3 # Bowel Movements 1 Laboratory Tests 10/19/18 21:45: Urine Color Pale yellow, Urine Appearance Clear, Urine pH 7, Urine Specific [place] 1.005, Urine Protein Negative, Urine Glucose (UA) Negative, Urine Ketones Negative, Urine Blood 1+H, Urine Nitrite Negative, Urine Bilirubin Negative, Urine Urobilinogen Normal, Urine Leukocyte Esterase 2+H, Urine RBC 0-2 , Urine WBC 5-10H, Urine Squamous Epithelial Cells ModerateH, Urine Bacteria None 10/20/18 06:35: White Blood Count 9.7, Red Blood Count 4.34, Hemoglobin 9.6L, Hematocrit 30.3L, Mean Corpuscular Volume 70L, Mean Corpuscular Hemoglobin 22.0L, Mean Corpuscular Hemoglobin Concent 31.5L, Red Cell Distribution Width 15.1H, Platelet Count 326, Mean Platelet Volume 6.7, Neutrophils (%) (Auto) 69.3, Lymphocytes (%) (Auto) 19.3L, Monocytes (%) (Auto) 7.4, Eosinophils (%) (Auto) 3.4H, Basophils (%) (Auto) 0.6, Sodium Level 138, Potassium Level 3.7, Chloride Level 103, Carbon Dioxide Level 28, Anion Gap 8, Blood Urea Nitrogen 11, Creatinine 0.7, Estimat Glomerular Filtration Rate > 60, Glucose Level 100, Calcium Level 9.0 10/20/18 13:55: Vancomycin Level Trough 17.5H Height (Feet): 5 Height (Inches): 2.00 Weight (Pounds): 201 General Appearance: WD/WN, no apparent distress EENT: PERRL/EOMI Neck: non-tender Cardiovascular: normal peripheral pulses, normal rate Respiratory/Chest: chest wall non-tender Extremities: normal range of motion, non-tender Neurologic: cake cutter machine II-XII grossly normal Aren Aguirre MD Oct 20, 2018 17:40
--- NOTE | 2018-10-20 18:47 | Infectious Diseases Prog Note ---
Assessment/Plan Assessment/Plan ASSESSMENT AND PLAN: 1. 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 No other significant past medical history. 3. Pain management per primary team and Surgery. 4. Wound care per Surgery. 5. Anemia. 6. No known allergies. 7. Social history is negative. 8. Family history is noncontributory. 9. MAR was noted. 10. Case discussed with RN. 11. Continue treatment per primary consultants. Subjective Constitutional: Reports: fever - fever yesterday but not today , fatigue HEENT: Denies: congestion Respiratory: Denies: shortness of breath Cardiovascular: Denies: chest pain Gastrointestinal/Abdominal: Denies: nausea, vomiting Genitourinary: Reports: other - no saha Neurologic: Denies: headache Psychiatric: Denies: depression Skin: Denies: rash Hematologic: Denies: bleeding Musculoskeletal: Denies: pain Allergies: Coded Allergies: No Known Allergies (Unverified , 10/11/18) Objective Vital Signs Last 24 Hour Vital Signs Date Time Temp Pulse Resp B/P (MAP) Pulse Ox O2 Delivery O2 Flow Rate FiO2 10/20/18 16:00 18 10/20/18 16:00 97.8 92 18 131/68 (89) 98 10/20/18 12:00 97.8 86 18 148/74 (98) 100 10/20/18 12:00 20 10/20/18 10:10 98.2 10/20/18 09:00 Room Air 10/20/18 08:00 18 10/20/18 08:00 98.2 99 18 115/73 (87) 96 10/20/18 04:00 98.0 93 17 112/62 (79) 96 10/20/18 04:00 17 10/20/18 00:00 20 10/20/18 00:00 98.2 108 20 119/73 (88) 98 10/19/18 21:30 99.8 10/19/18 21:00 Room Air 10/19/18 20:30 101.3 112 20 137/76 (96) 100 10/19/18 20:00 17 Height (Feet): 5 Height (Inches): 2.00 Weight (Pounds): 201 General Appearance: no acute distress HEENT: normocephalic, atraumatic, anicteric, mucous membranes moist Respiratory/Chest: lungs clear, normal breath sounds, no respiratory distress, no accessory muscle use Cardiovascular: normal rate, regular rhythm, no gallop/murmur, no JVD Abdomen: normal bowel sounds, soft, non tender, no organomegaly, non distended Genitourinary: other - no saha Extremities: no cyanosis Skin: no rash, other - wounds covered post-surgically 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, alert, responsive Lymphatic: no neck adenopathy Musculoskeletal: no effusion Objective Microbiology Date/Time Source Procedure Growth Status 10/11/18 13:58 Blood Blood Culture - Final NO GROWTH AFTER 5 DAYS Complete 10/19/18 00:00 Urine,Clean Catch Urine Culture - Preliminary NO GROWTH Resulted 10/12/18 12:58 Axilla Right Gram Stain - Final Complete 10/12/18 12:58 Aerobic Culture - Final Diphtheroids Staphylococcus Sp Coag Neg Streptococcus Viridans Complete 10/12/18 12:58 Axilla Right Anaerobic Culture - Final NO ANAEROBES ISOLATED Complete Chest x-ray - 10/20/18 - nad, report noted Microbiology Date/Time Source Procedure Growth Status 10/19/18 00:00 Urine,Clean Catch Urine Culture - Preliminary NO GROWTH Resulted Laboratory Tests Test 10/19/18 21:45 10/20/18 06:35 10/20/18 13:55 Urine Color Pale yellow Urine Appearance Clear Urine pH 7 (4.5-8.0) Urine Specific [place] 1.005 (1.005-1.035) Urine Protein Negative (NEGATIVE) Urine Glucose (UA) Negative (NEGATIVE) Urine Ketones Negative (NEGATIVE) Urine Blood 1+ (NEGATIVE) H Urine Nitrite Negative (NEGATIVE) Urine Bilirubin Negative (NEGATIVE) Urine Urobilinogen Normal MG/DL (0.0-1.0) Urine Leukocyte Esterase 2+ (NEGATIVE) H Urine RBC 0-2 /HPF (0 - 2) Urine WBC 5-10 /HPF (0 - 2) H Urine Squamous Epithelial Cells Moderate /LPF (NONE/OCC) H Urine Bacteria None /HPF (NONE) White Blood Count 9.7 K/UL (4.8-10.8) Red Blood Count 4.34 M/UL (4.20-5.40) Hemoglobin 9.6 G/DL (12.0-16.0) L Hematocrit 30.3 % (37.0-47.0) L Mean Corpuscular Volume 70 FL (80-99) L Mean Corpuscular Hemoglobin 22.0 PG (27.0-31.0) L Mean Corpuscular Hemoglobin Concent 31.5 G/DL (32.0-36.0) L Red Cell Distribution Width 15.1 % (11.6-14.8) H Platelet Count 326 K/UL (150-450) Mean Platelet Volume 6.7 FL (6.5-10.1) Neutrophils (%) (Auto) 69.3 % (45.0-75.0) Lymphocytes (%) (Auto) 19.3 % (20.0-45.0) L Monocytes (%) (Auto) 7.4 % (1.0-10.0) Eosinophils (%) (Auto) 3.4 % (0.0-3.0) H Basophils (%) (Auto) 0.6 % (0.0-2.0) Sodium Level 138 MMOL/L (136-145) Potassium Level 3.7 MMOL/L (3.5-5.1) Chloride Level 103 MMOL/L (98-107) Carbon Dioxide Level 28 MMOL/L (21-32) Anion Gap 8 mmol/L (5-15) Blood Urea Nitrogen 11 mg/dL (7-18) Creatinine 0.7 MG/DL (0.55-1.30) Estimat Glomerular Filtration Rate > 60 mL/min (>60) Glucose Level 100 MG/DL (74-106) Calcium Level 9.0 MG/DL (8.5-10.1) Vancomycin Level Trough 17.5 ug/mL (5.0-12.0) H Current Medications Medications (Trade) Dose Ordered Sig/Lalit Route PRN Reason Start Time Stop Time Status Last Admin Dose Admin Acetaminophen (Tylenol) 650 mg Q4H PRN ORAL FEVER 10/17/18 12:00 11/16/18 11:59 10/20/18 09:40 Dextrose (Dextrose 50%) 25 ml Q30M PRN IV Hypoglycemia 10/11/18 18:30 11/10/18 18:29 Dextrose (Dextrose 50%) 50 ml Q30M PRN IV Hypoglycemia 10/11/18 18:30 11/10/18 18:29 Diphenhydramine HCl (Benadryl) 12.5 mg Q6H PRN IVP Itching/Pruritis 10/12/18 11:15 11/11/18 11:14 Docusate Sodium (Colace) 100 mg TWICE A DAY ORAL 10/17/18 18:00 11/16/18 17:59 10/20/18 09:28 Heparin Sodium (Porcine) (Heparin 5000 units/ml) 5,000 units EVERY 12 HOURS SUBQ 10/17/18 21:00 11/16/18 20:59 10/20/18 09:32 Hydromorphone HCl 30 ml @ 0 mls/hr Q24H PRN IV For Pain 10/19/18 13:41 10/21/18 13:40 10/19/18 14:20 Hydromorphone HCl (Dilaudid) 2 mg Q3H PRN SUBQ Severe Pain (Pain Scale 7-10) 10/19/18 13:45 10/21/18 13:44 Hydromorphone HCl (Dilaudid) 2 mg Q4H PRN IVP Moderate Pain (Pain Scale 4-6) 10/19/18 13:45 10/21/18 13:44 Magnesium Hydroxide (Mom) 30 ml DAILYPRN PRN ORAL Constipation 10/16/18 13:15 11/15/18 13:14 10/16/18 13:22 Miscellaneous Medication (TEACHER HEARING IMPAIRED Rate Change) 1 ea DAILY PRN MISC rate change 10/19/18 13:45 10/21/18 13:44 Miscellaneous Medication (TEACHER HEARING IMPAIRED shift volume) 1 ea Q12HR@0700,1900 MISC 10/19/18 19:00 10/21/18 18:59 10/20/18 07:28 Naloxone HCl (Narcan) 0.1 mg PRN IV . 10/19/18 13:45 10/21/18 13:44 Ondansetron HCl (Zofran) 4 mg Q6H PRN IVP Nausea & Vomiting 10/17/18 12:00 11/16/18 11:59 10/18/18 21:20 Sennosides (Senokot) 17.2 mg QHS ORAL 10/16/18 21:00 11/15/18 20:59 10/18/18 21:17 Vancomycin HCl (Vanco rx to dose) 1 ea DAILY PRN MISC Per rx protocol 10/15/18 12:15 11/14/18 12:14 Vancomycin HCl 750 mg/Sodium Chloride 275 ml @ 183.333 mls/hr Q6H IVPB 10/20/18 16:00 10/25/18 15:59 10/20/18 16:50 Zolpidem Tartrate (Ambien) 5 mg QHS PRN ORAL Insomnia 10/17/18 21:00 10/24/18 20:59 10/19/18 20:35 Nate Gomes MD Oct 20, 2018 18:47
--- NOTE | 2018-10-20 19:14 | NUR ---
HAND-OFF: Report given to PATRIA BARRETO RN.
--- NOTE | 2018-10-20 19:14 | NUR ---
NURSE NOTES: PATIENT REMAINS STABLE. YP AMBULATING IN HALLWAY. GAIT STEADY. PAIN CONTROLLED WITH PATIENT SUPPORT ASSISTANT. SURGICAL SITES C/D/I.BRUCE DRAINS SECURED AND INTACT.
--- NOTE | 2018-10-20 19:15 | NUR ---
NURSE NOTES: Received report from CORNELIUS Mcclure. Patient alert, sitting up in bed. at bedside. Bed in low position, locked, side rails up x2, call light within reach.
--- NOTE | 2018-10-20 21:02 | NUR ---
NURSE NOTES: Patient ambulates without assistance, or with very little assistance. Steady gait. at bedside. Bilat axillae dressings intact, bilat BRUCE draining serous sanguineous fluid. Pain well controlled with RECTIFICATION PRINTER use.
[2018-10-20] MEDS: Sennosides 8.6mg tab ORAL SCH (21:39)
[2018-10-20] MEDS: Zolpidem 5mg tab ORAL PRN (21:59)
[2018-10-21] VITALS: BP 124/77
[2018-10-21] MEDS: Vancomycin 750mg/NS 275ml IVPB SCH ×8 (04:04→22:21)
[2018-10-21 04:05] VITALS: BP 103/65
[2018-10-21] MEDS: PCA shift volume MISC SCH (07:00)
--- NOTE | 2018-10-21 07:15 | NUR ---
HAND-OFF: Report given to CORNELIUS Mcclure.
--- NOTE | 2018-10-21 07:39 | NUR ---
NURSE NOTES: WALKING ROUNDS DONE WITH OUTGOING RN. PATIENT ASLEEP, PCS SETTINGS VERIFIED AGAINST MD ORDER. BED IN LOWEST AND LOCKED POSITION. CALL LIGHT WITHIN REACH.
[2018-10-21 08:00] VITALS: BP 138/66
--- NOTE | 2018-10-21 09:31 | NUR ---
*-* INSURANCE *-* UPDATED CLINICALS HAVE BEEN FAXED TO: [facility] F:[phone] Addendum: 10/24/18 at 1210 by DAMARIS CRAIG LVN LVN [facility] T: [phone] F: [phone]
[2018-10-21] MEDS: Docusate 100mg cap ORAL SCH ×2 (09:49→18:32)
[2018-10-21 09:50] LABS: ANION GAP 8 mmol/L (5-15); BLOOD UREA NITROGEN 8 mg/dL (7-18); CALCIUM 8.5 MG/DL (8.5-10.1); CARBON DIOXIDE 26 MMOL/L (21-32); CHLORIDE 106 MMOL/L (98-107); CREATININE 0.7 MG/DL (0.55-1.30); POTASSIUM 3.8 MMOL/L (3.5-5.1); SODIUM 140 MMOL/L (136-145)
[2018-10-21] MEDS: Heparin 5000 units/ml inj SUBQ SCH ×2 (09:53→21:26)
--- NOTE | 2018-10-21 10:39 | NUR ---
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
--- NOTE | 2018-10-21 10:41 | NUR ---
DISCHARGE PLANNING PLEASE PROVIDE FOLLOWING INFORMATION TO PATIENT UPON DISCHARGE HOME HEALTH IN [place] HAS BEEN ARRANGED [facility] T: [phone] F: [phone] LINE PRODUCTION COOK: MARLENY
--- NOTE | 2018-10-21 11:45 | NUR ---
NURSE NOTES: POSITIVE BLOOD CULTURES RECEIVED CALL FROM MISSAEL IN LAB FOR POSITIVE GRAM COCCI IN [facility] BLOOD CULTURES. DR. HURST HERE AND INFORMED. PER MISSAEL IN LAB WILL CONTACT DR. BURNS.
--- NOTE | 2018-10-21 11:58 | General Progress Note ---
Progress Note Progress Note Pt seen and examined. POD# 4 and doing well. Flaps are viable. Small opening on the left upper donor site wound. Will continue abx and removed BRUCE drains. Will do woundcare to open area. MD Jennifer Carlson Amir MD Oct 21, 2018 11:58
[2018-10-21 12:00] VITALS: BP 143/90
[2018-10-21] MEDS ORDERED: PCA HYDROmorphone 1mg/ml 30 ML IV PRN (13:00)
[2018-10-21 16:00] VITALS: BP 145/82
[2018-10-21] MEDS ORDERED: oxyCODONE 5mg IR tab ORAL PRN (16:05)
--- NOTE | 2018-10-21 17:06 | General Progress Note ---
Assessment/Plan Status: stable Assessment/Plan: Assessment/Plan: 28 year old female with PMH of hidradenitis suppurativa presents with complaints of b/l axillary and b/l groin pain, swelling, tenderness, purulent discharge and irritation for past 2 weeks admitted to medicine service for IV antibiotics, pain control and possible surgical intervention. #Hidradenitis suppurativa S/P radical excision of B/L axillary tissue bearing hidradenitis suppurativa #Intractable pain #Abscess -Surgery consult appreciated - -Failed multiple courses of PO and IV ABX -Ancef - Changed to Vancomycin 10/16/18 - Fever noted today. Resolved after APAP. MONITOR. Discussed IS use, hydration and mobility. -Pain control with MEDIA PRODUCTION OPERATOR -awaiting path and wound cultures - - +Staph and strep, diphteroides - Continue excellent postoperative care - Encourage mobilization/ambulation - Encourage incentive spirometry to optimize pulmonary hygiene - DVT/GI prophylaxis as appropriate - Pain control and supportive care -ID consult appreciated - POD # 9 and # 4 from closure of bilateral axillary wounds by Dr. Rodriguez - Monitor drainage and drains were removed by surgery today. - Wwill transition MEDIA PRODUCTION OPERATOR to OFF and start oral pain management. Full code TIme of note may not reflect time of encounter Subjective Allergies: Coded Allergies: No Known Allergies (Unverified , 10/11/18) All Systems: reviewed and negative except above Subjective working with IS up to 3500 ml AMbulatory Denies fever chills or dysuria Pain is well controlled with MEDIA PRODUCTION OPERATOR Objective Last 24 Hour Vital Signs Date Time Temp Pulse Resp B/P (MAP) Pulse Ox O2 Delivery O2 Flow Rate FiO2 10/21/18 16:00 18 10/21/18 12:01 21 10/21/18 12:00 98.0 95 18 143/90 (107) 96 10/21/18 09:00 Room Air 10/21/18 08:00 98.3 77 17 138/66 (90) 96 10/21/18 08:00 18 10/21/18 04:05 98.4 85 16 103/65 (78) 97 10/21/18 04:03 16 10/21/18 00:00 18 10/21/18 00:00 98.6 94 18 124/77 (93) 99 10/20/18 21:25 99 18 146/81 (102) 98 10/20/18 21:00 Room Air 10/20/18 20:00 18 10/20/18 20:00 98.6 99 18 159/83 (108) 99 Intake and Output 10/20/18 10/21/18 19:00 07:00 Intake Total 635 ml 450 ml Output Total 160 ml 80 ml Balance 475 ml 370 ml Intake Oral 360 ml 450 ml IV Total 275 ml Drainage Total 160 ml 80 ml # Voids 3 2 # Bowel Movements 1 1 Laboratory Tests 10/21/18 09:05: Sodium Level 140, Potassium Level 3.8, Chloride Level 106, Carbon Dioxide Level 26, Anion Gap 8, Blood Urea Nitrogen 8, Creatinine 0.7, Estimat Glomerular Filtration Rate > 60, Glucose Level 99, Calcium Level 8.5, Vancomycin Level Trough 13.6H Height (Feet): 5 Height (Inches): 2.00 Weight (Pounds): 201 General Appearance: WD/WN EENT: PERRL/EOMI Cardiovascular: normal peripheral pulses, normal rate Respiratory/Chest: chest wall non-tender, lungs clear Abdomen: normal bowel sounds Extremities: normal range of motion Edema: trace edema Neurologic: feller hand II-XII grossly normal Skin: normal pigmentation Aren Aguirre MD Oct 21, 2018 17:06
--- NOTE | 2018-10-21 18:30 | NUR ---
NURSE NOTES: Patient remains stable. up ambulating with spouse around nursing unit. gait steady. pain controlled. uneventful day.
[2018-10-21] MEDS: oxyCODONE 15mg IR tab ORAL SCH (18:32)
--- NOTE | 2018-10-21 19:23 | NUR ---
HAND-OFF: Report given to PATRIA BARRETO RN.
--- NOTE | 2018-10-21 19:25 | NUR ---
NURSE NOTES: Received report from CORNELIUS Mcclure. Patient awake, alert. No distress noted. sitting up watching movie with . Dressing bilat axillae intact and dry. Will continue to monitor.
[2018-10-21 20:00] VITALS: BP 140/79
[2018-10-21] MEDS: Sennosides 8.6mg tab ORAL SCH (21:24)
[2018-10-21] MEDS: Milk of Magnesia 30ml Ud ORAL PRN (22:20)
[2018-10-22] VITALS (7 sets, daily range): BP systolic 97–157; BP diastolic 69–78
[2018-10-22] MEDS: oxyCODONE 15mg IR tab ORAL SCH ×4 (00:20→18:09)
[2018-10-22] MEDS: Zolpidem 5mg tab ORAL PRN (01:21)
[2018-10-22] MEDS: Vancomycin 750mg/NS 275ml IVPB SCH ×8 (04:38→22:39)
--- NOTE | 2018-10-22 07:00 | NUR ---
HAND-OFF: Report given to CORNELIUS Rowe.
--- NOTE | 2018-10-22 07:37 | NUR ---
NURSE NOTES: DOZING. NO C/O PAIN. BLIATERAL AXCILLARY DRESSING DRY AND INTACT. IN NO DISTRESS.
[2018-10-22] MEDS: Docusate 100mg cap ORAL SCH ×2 (08:40→18:08)
[2018-10-22] MEDS: Heparin 5000 units/ml inj SUBQ SCH ×2 (08:44→21:40)
--- NOTE | 2018-10-22 10:56 | General Progress Note ---
Progress Note Progress Note Pt seen and examined. POD# 6 from axillary wound closures. Doing well. Pain well controlled. No fevers. Flaps are viable. Right flap still with some areas of epidermolysis but stable since 2 days ago. Will be discharged soon. Ceci Mead MD, MD Oct 22, 2018 10:56
--- NOTE | 2018-10-22 11:30 | NUR ---
NURSE NOTES: ASSISTED TO THE SHOWER TOLERATED.
--- NOTE | 2018-10-22 11:54 | General Progress Note ---
Assessment/Plan Status: stable Assessment/Plan: Assessment/Plan: 28 year old female with PMH of hidradenitis suppurativa presents with complaints of b/l axillary and b/l groin pain, swelling, tenderness, purulent discharge and irritation for past 2 weeks admitted to medicine service for IV antibiotics, pain control and possible surgical intervention. #Hidradenitis suppurativa S/P radical excision of B/L axillary tissue bearing hidradenitis suppurativa #Intractable pain #Abscess -Surgery consult appreciated - -Failed multiple courses of PO and IV ABX -Ancef - Changed to Vancomycin 10/16/18 - Fever noted today. Resolved after APAP. MONITOR. Discussed IS use, hydration and mobility. -Pain control with MANAGER CORPORATE STRATEGY -awaiting path and wound cultures - - +Staph and strep, diphteroides - Continue excellent postoperative care - Encourage mobilization/ambulation - Encourage incentive spirometry to optimize pulmonary hygiene - DVT/GI prophylaxis as appropriate - Pain control and supportive care -ID consult appreciated - POD # 10 and # 5 from closure of bilateral axillary wounds by Dr. Rodriguez - Monitor drainage and drains were removed by surgery today. - MANAGER CORPORATE STRATEGY to OFF and started oral pain management with good result. - Rx for Ambien, Percocet, Keflex provided. Full code TIme of note may not reflect time of encounter Subjective ROS Limited/Unobtainable: No Allergies: Coded Allergies: No Known Allergies (Unverified , 10/11/18) Subjective working with IS up to 3500 ml Ambulatory Denies fever chills or dysuria Pain is well controlled with oral oxycodone and MANAGER CORPORATE STRATEGY is OFF now Objective Last 24 Hour Vital Signs Date Time Temp Pulse Resp B/P (MAP) Pulse Ox O2 Delivery O2 Flow Rate FiO2 10/22/18 08:06 Room Air 10/22/18 08:00 97.1 70 20 136/72 (93) 97 10/22/18 04:00 98.1 74 18 115/71 (86) 96 10/22/18 00:55 145/78 (100) 10/22/18 00:00 98.6 85 20 157/69 (98) 99 10/21/18 21:00 Room Air 10/21/18 20:00 98.3 83 19 140/79 (99) 99 10/21/18 16:00 100.0 98 16 145/82 (103) 99 10/21/18 16:00 18 10/21/18 12:01 21 10/21/18 12:00 98.0 95 18 143/90 (107) 96 Intake and Output 10/21/18 10/22/18 19:00 07:00 Intake Total 480 ml Output Total 35 ml Balance 445 ml Intake Oral 480 ml Drainage Total 35 ml # Voids 3 4 Height (Feet): 5 Height (Inches): 2.00 Weight (Pounds): 201 General Appearance: WD/WN EENT: PERRL/EOMI Neck: non-tender Cardiovascular: normal peripheral pulses Respiratory/Chest: lungs clear, normal breath sounds 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
--- NOTE | 2018-10-22 17:13 | Infectious Diseases Prog Note ---
Assessment/Plan Assessment/Plan ASSESSMENT AND PLAN: 1. streptococcus viridans/diphtheroids/wholesaler bilateral axilla infected wounds and infected hidradenitis suppurativa, 2/4 bc + staph species, ID pending, ? contaminant vs pathogen, no central line, urine culture is contaminant - s/p debridement and excision - s/p wound closure - vancomycin for now, consider oral keflex plus doxycycline soon (patient has GI discomfort with bactrim) - wound care per plastic surgery, notes reviewed and wounds seem stable - monitor labs, creatinine - fevers and leukocytosis better, chest x-ray - negative - f/u on blood cultures 2. No other significant past medical history. 3. Pain management per primary team and Surgery. 4. Wound care per Surgery. 5. Anemia. 6. No known allergies. 7. Social history is negative. 8. Family history is noncontributory. 9. MAR was noted. 10. Case discussed with RN. 11. Continue treatment per primary consultants. Subjective Constitutional: Denies: fever HEENT: Denies: congestion Respiratory: Denies: shortness of breath Cardiovascular: Denies: chest pain Gastrointestinal/Abdominal: Denies: nausea, vomiting, diarrhea Genitourinary: Denies: dysuria, hematuria, frequency, nocturia Neurologic: Denies: headache Psychiatric: Denies: depression Skin: Denies: rash Hematologic: Denies: bleeding Musculoskeletal: Denies: pain Allergies: Coded Allergies: No Known Allergies (Unverified , 10/11/18) Objective Vital Signs Last 24 Hour Vital Signs Date Time Temp Pulse Resp B/P (MAP) Pulse Ox O2 Delivery O2 Flow Rate FiO2 10/22/18 16:00 98.0 82 22 122/74 (90) 99 10/22/18 12:00 98.1 88 21 97/72 (80) 99 10/22/18 08:06 Room Air 10/22/18 08:00 97.1 70 20 136/72 (93) 97 10/22/18 04:00 98.1 74 18 115/71 (86) 96 10/22/18 00:55 145/78 (100) 10/22/18 00:00 98.6 85 20 157/69 (98) 99 10/21/18 21:00 Room Air 10/21/18 20:00 98.3 83 19 140/79 (99) 99 Height (Feet): 5 Height (Inches): 2.00 Weight (Pounds): 201 General Appearance: no acute distress HEENT: normocephalic, atraumatic, anicteric, mucous membranes moist Respiratory/Chest: lungs clear, normal breath sounds, no respiratory distress, no accessory muscle use Cardiovascular: normal rate, regular rhythm, no gallop/murmur, no JVD Abdomen: normal bowel sounds, soft, non tender, no organomegaly, non distended Genitourinary: other - no saha Extremities: no cyanosis Skin: no rash 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, alert, responsive Lymphatic: no neck adenopathy Musculoskeletal: no effusion Objective Microbiology Date/Time Source Procedure Growth Status 10/11/18 13:58 Blood Blood Culture - Final NO GROWTH AFTER 5 DAYS Complete 10/19/18 00:00 Urine,Clean Catch Urine Culture - Preliminary NO GROWTH Resulted 10/12/18 12:58 Axilla Right Gram Stain - Final Complete 10/12/18 12:58 Aerobic Culture - Final Diphtheroids Staphylococcus Sp Coag Neg Streptococcus Viridans Complete 10/12/18 12:58 Axilla Right Anaerobic Culture - Final NO ANAEROBES ISOLATED Complete Chest x-ray - 10/20/18 - nad, report noted Microbiology Date/Time Source Procedure Growth Status 10/19/18 21:35 Blood Blood Culture - Preliminary NO GROWTH AFTER 48 HOURS Resulted 10/19/18 21:26 Blood Blood Culture - Preliminary Staphylococcus Species Resulted Labs Test 10/19/18 21:45 10/20/18 06:35 10/20/18 13:55 10/21/18 09:05 Urine Color Pale yellow Urine Appearance Clear Urine pH 7 (4.5-8.0) Urine Specific [place] 1.005 (1.005-1.035) Urine Protein Negative (NEGATIVE) Urine Glucose (UA) Negative (NEGATIVE) Urine Ketones Negative (NEGATIVE) Urine Blood 1+ (NEGATIVE) Urine Nitrite Negative (NEGATIVE) Urine Bilirubin Negative (NEGATIVE) Urine Urobilinogen Normal MG/DL (0.0-1.0) Urine Leukocyte Esterase 2+ (NEGATIVE) Urine RBC 0-2 /HPF (0 - 2) Urine WBC 5-10 /HPF (0 - 2) Urine Squamous Epithelial Cells Moderate /LPF (NONE/OCC) Urine Bacteria None /HPF (NONE) White Blood Count 9.7 K/UL (4.8-10.8) Red Blood Count 4.34 M/UL (4.20-5.40) Hemoglobin 9.6 G/DL (12.0-16.0) Hematocrit 30.3 % (37.0-47.0) Mean Corpuscular Volume 70 FL (80-99) Mean Corpuscular Hemoglobin 22.0 PG (27.0-31.0) Mean Corpuscular Hemoglobin Concent 31.5 G/DL (32.0-36.0) Red Cell Distribution Width 15.1 % (11.6-14.8) Platelet Count 326 K/UL (150-450) Mean Platelet Volume 6.7 FL (6.5-10.1) Neutrophils (%) (Auto) 69.3 % (45.0-75.0) Lymphocytes (%) (Auto) 19.3 % (20.0-45.0) Monocytes (%) (Auto) 7.4 % (1.0-10.0) Eosinophils (%) (Auto) 3.4 % (0.0-3.0) Basophils (%) (Auto) 0.6 % (0.0-2.0) Sodium Level 138 MMOL/L (136-145) 140 MMOL/L (136-145) Potassium Level 3.7 MMOL/L (3.5-5.1) 3.8 MMOL/L (3.5-5.1) Chloride Level 103 MMOL/L (98-107) 106 MMOL/L (98-107) Carbon Dioxide Level 28 MMOL/L (21-32) 26 MMOL/L (21-32) Anion Gap 8 mmol/L (5-15) 8 mmol/L (5-15) Blood Urea Nitrogen 11 mg/dL (7-18) 8 mg/dL (7-18) Creatinine 0.7 MG/DL (0.55-1.30) 0.7 MG/DL (0.55-1.30) Estimat Glomerular Filtration Rate > 60 mL/min (>60) > 60 mL/min (>60) Glucose Level 100 MG/DL (74-106) 99 MG/DL (74-106) Calcium Level 9.0 MG/DL (8.5-10.1) 8.5 MG/DL (8.5-10.1) Vancomycin Level Trough 17.5 ug/mL (5.0-12.0) 13.6 ug/mL (5.0-12.0) Current Medications Medications (Trade) Dose Ordered Sig/Lalit Route PRN Reason Start Time Stop Time Status Last Admin Dose Admin Acetaminophen (Tylenol) 650 mg Q4H PRN ORAL FEVER 10/17/18 12:00 11/16/18 11:59 10/20/18 09:40 Dextrose (Dextrose 50%) 25 ml Q30M PRN IV Hypoglycemia 10/11/18 18:30 11/10/18 18:29 Dextrose (Dextrose 50%) 50 ml Q30M PRN IV Hypoglycemia 10/11/18 18:30 11/10/18 18:29 Diphenhydramine HCl (Benadryl) 12.5 mg Q6H PRN IVP Itching/Pruritis 10/12/18 11:15 11/11/18 11:14 Docusate Sodium (Colace) 100 mg TWICE A DAY ORAL 10/17/18 18:00 11/16/18 17:59 10/22/18 08:40 Heparin Sodium (Porcine) (Heparin 5000 units/ml) 5,000 units EVERY 12 HOURS SUBQ 10/17/18 21:00 11/16/18 20:59 10/22/18 08:44 Magnesium Hydroxide (Mom) 30 ml DAILYPRN PRN ORAL Constipation 10/16/18 13:15 11/15/18 13:14 10/21/18 22:20 Ondansetron HCl (Zofran) 4 mg Q6H PRN IVP Nausea & Vomiting 10/17/18 12:00 11/16/18 11:59 10/18/18 21:20 Oxycodone HCl (Roxicodone) 10 mg Q4H PRN ORAL Breakthrough Pain 10/21/18 16:05 10/28/18 16:04 Oxycodone HCl (Roxicodone) 15 mg Q6HR ORAL 10/21/18 18:00 10/28/18 17:59 10/22/18 12:05 Sennosides (Senokot) 17.2 mg QHS ORAL 10/16/18 21:00 11/15/18 20:59 10/21/18 21:24 Vancomycin HCl (Vanco rx to dose) 1 ea DAILY PRN MISC Per rx protocol 10/15/18 12:15 11/14/18 12:14 Vancomycin HCl 750 mg/Sodium Chloride 275 ml @ 183.333 mls/hr Q6H IVPB 10/20/18 16:00 10/25/18 15:59 10/22/18 15:48 Zolpidem Tartrate (Ambien) 5 mg QHS PRN ORAL Insomnia 10/17/18 21:00 10/24/18 20:59 10/22/18 01:21 Nate Gomes MD Oct 22, 2018 17:13
--- NOTE | 2018-10-22 18:57 | NUR ---
NURSE NOTES: condition stable in no apparent distress.
--- NOTE | 2018-10-22 19:08 | NUR ---
HAND-OFF: Report given to Taye BARRETO RN.
--- NOTE | 2018-10-22 19:10 | NUR ---
NURSE NOTES: Received report from CORNELIUS Rowe.
--- NOTE | 2018-10-22 19:51 | NUR ---
NURSE NOTES: Patient alert, oriented x4. Bed in low position, locked, side rails up x2, call light within reach. IV site intact in left hand. Bilat axillae dressings are dry and intact. Discussed plan of care with patient and . Will continue to monitor.
[2018-10-22] MEDS: Sennosides 8.6mg tab ORAL SCH (21:38)
[2018-10-23] VITALS: BP 139/78
[2018-10-23] MEDS: oxyCODONE 15mg IR tab ORAL SCH ×4 (00:34→18:21)
[2018-10-23] MEDS: Zolpidem 5mg tab ORAL PRN ×2 (01:59→20:52)
[2018-10-23 04:00] VITALS: BP 110/63
[2018-10-23] MEDS: Vancomycin 750mg/NS 275ml IVPB SCH ×8 (04:05→20:52)
--- NOTE | 2018-10-23 07:45 | NUR ---
HAND-OFF: Report given to CORNELIUS Issa.
--- NOTE | 2018-10-23 07:46 | NUR ---
NURSE NOTES:BEDSIDE ROUNDS WITH PATRIA SHIELDS.PT.AWAKE,A/OX4,ROOM AIR,BILATERAL AXILLA DRSNG C/D/I.NO C/O PAIN.WILL CONTINUE PLAN OF CARE.
[2018-10-23 08:10] VITALS: BP 128/73
[2018-10-23 08:10] LABS: ANION GAP 12 mmol/L (5-15); BLOOD UREA NITROGEN 8 mg/dL (7-18); CALCIUM 8.4 MG/DL (8.5-10.1); CARBON DIOXIDE 22 MMOL/L (21-32); CHLORIDE 106 MMOL/L (98-107); CREATININE 0.7 MG/DL (0.55-1.30); POTASSIUM 3.8 MMOL/L (3.5-5.1); SODIUM 140 MMOL/L (136-145)
[2018-10-23] MEDS: Docusate 100mg cap ORAL SCH ×2 (08:53→18:00)
[2018-10-23] MEDS: Heparin 5000 units/ml inj SUBQ SCH ×2 (08:54→20:46)
[2018-10-23 11:59] VITALS: BP 134/75
[2018-10-23] MEDS ORDERED: NS 275ml ONE (13:28)
[2018-10-23] MEDS ORDERED: Tubing IV Secondary IV ONE (13:28)
[2018-10-23] MEDS ORDERED: Magnesium Citrate Liq Btl ORAL ONE (15:45)
--- NOTE | 2018-10-23 16:03 | General Progress Note ---
Assessment/Plan Status: stable Assessment/Plan: Assessment/Plan: 28 year old female with PMH of hidradenitis suppurativa presents with complaints of b/l axillary and b/l groin pain, swelling, tenderness, purulent discharge and irritation for past 2 weeks admitted to medicine service for IV antibiotics, pain control and possible surgical intervention. #Hidradenitis suppurativa S/P radical excision of B/L axillary tissue bearing hidradenitis suppurativa #Intractable pain #Abscess -Surgery consult appreciated - -Failed multiple courses of PO and IV ABX -Ancef - Changed to Vancomycin 10/16/18 - Fever noted today. Resolved after APAP. MONITOR. Discussed IS use, hydration and mobility. -Pain control with TRANSMITTER OPERATOR -awaiting path and wound cultures - - +Staph and strep, diphteroides - Continue excellent postoperative care - Encourage mobilization/ambulation - Encourage incentive spirometry to optimize pulmonary hygiene - DVT/GI prophylaxis as appropriate - Pain control and supportive care -ID consult appreciated - POD # 11 and # 6 from closure of bilateral axillary wounds by Dr. Rodriguez - Monitor drainage and drains were removed by surgery today. - TRANSMITTER OPERATOR to OFF 10/21 and started oral pain management with good result. - Rx for Ambien, Percocet, Keflex and Doxycycline provided. Discussed length of therapy with ID ( 7 days) - GOAL TO DC TOMORROW BY 12 pm -LAXATIVE TODAY FOR BM ( ideally prior to dc ) Full code TIme of note may not reflect time of encounter Subjective Allergies: Coded Allergies: No Known Allergies (Unverified , 10/11/18) Subjective working with IS up to 3500 ml Ambulatory Denies fever chills or dysuria Pain is well controlled with oral oxycodone and TRANSMITTER OPERATOR is OFF sice 10/21 NO BOWEL MOVEMENT noted in 5 days Objective Last 24 Hour Vital Signs Date Time Temp Pulse Resp B/P (MAP) Pulse Ox O2 Delivery O2 Flow Rate FiO2 10/23/18 11:59 97.7 73 18 134/75 (94) 99 10/23/18 07:45 Room Air 10/23/18 04:00 98.4 87 16 110/63 (79) 96 10/23/18 00:00 99.3 94 18 139/78 (98) 100 10/22/18 21:00 Room Air 10/22/18 20:00 98.2 93 16 116/72 (87) 99 Intake and Output 10/22/18 10/23/18 19:00 07:00 Intake Total 800 ml 460 ml Balance 800 ml 460 ml Intake Oral 250 ml 460 ml IV Total 550 ml # Voids 1 3 Laboratory Tests 10/23/18 06:29: Sodium Level 140, Potassium Level 3.8, Chloride Level 106, Carbon Dioxide Level 22, Anion Gap 12, Blood Urea Nitrogen 8, Creatinine 0.7, Estimat Glomerular Filtration Rate > 60, Glucose Level 90, Calcium Level 8.4L Height (Feet): 5 Height (Inches): 2.00 Weight (Pounds): 201 General Appearance: WD/WN EENT: PERRL/EOMI Neck: non-tender Cardiovascular: normal rate Respiratory/Chest: lungs clear Abdomen: soft, no organomegaly 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
[2018-10-23 16:18] VITALS: BP 123/63
--- NOTE | 2018-10-23 18:00 | NUR ---
NURSE NOTES:PT.WAS GIVEN MG CITRATE 1 BOTTLE,BUT TOLERATED ONLY 120CC,CLAIMS "I HAVE A NORMAL BM"AFTER MG. CITRATE.
--- NOTE | 2018-10-23 19:45 | NUR ---
HAND-OFF: Report given to RICHARDSON SHIELDS.PT STABLE..
--- NOTE | 2018-10-23 19:45 | NUR ---
NURSE NOTES: Pt lying in bed w/ at bedside, bed in lowest position, and call light within reach. Pt A&Ox4, VSS, and in no apparent distress at this time. IV site intact & TKO and surgical dressings C/D/I. Pt has no complaints at this time. Will continue to monitor.
[2018-10-23 20:00] VITALS: BP 153/88
[2018-10-23] MEDS: Sennosides 8.6mg tab ORAL SCH (21:00)
[2018-10-24] VITALS: BP 142/73
[2018-10-24] MEDS: oxyCODONE 15mg IR tab ORAL SCH ×3 (00:08→12:18)
[2018-10-24 04:00] VITALS: BP 140/66
[2018-10-24] MEDS: Vancomycin 750mg/NS 275ml IVPB SCH ×4 (04:09→09:18)
--- NOTE | 2018-10-24 06:15 | NUR ---
NURSE NOTES: Pt refused dressing change at this time; would like to delay until later this morning. Will endorse to oncoming shift.
--- NOTE | 2018-10-24 07:43 | NUR ---
HAND-OFF: Report given to Bubba Weber RN.
--- NOTE | 2018-10-24 07:45 | NUR ---
NURSE NOTES: Patient lying in bed awake. No complain of pain or distress at this time. Skin intact and dry. Surgical dressing intact and dry. IV dressing intact and dry. Bed lowest position. Call light within reach. Will continue to monitor.
[2018-10-24 08:00] VITALS: BP 147/71
--- NOTE | 2018-10-24 09:07 | Discharge Summary ---
Discharge Summary Hospital Course Date of Admission Oct 11, 2018 at 16:58 Date of Discharge 10/24 Admitting Diagnosis hidradenitis Reason for Hospitalization: hidradenitis HPI Chaparrita Oconnell is a 28 year old female who was admitted on Oct 11, 2018 at 16:58 for Hidradenitis Consultations Infectious Disease Surgery Procedures 10/12/18 1. Radical excision of left axillary tissue bearing hidradenitis suppurativa. 2. Elevation of a pedicled chest wall thoracodorsal artery exchange engineer flap. 3. Radical excision of right axillary tissue bearing infected hidradenitis suppurativa. 4. Elevation of a right-sided thoracodorsal artery pedicled chest wall flap. 10/17/18 1. Adjacent tissue transfer closure of left axillary wound measuring 20 x 15 cm using previously raised chest wall thoracodorsal artery exchange engineer flap. 2. Adjacent tissue transfer closure of right axillary wound measuring 19 x 16 cm with the ipsilateral pedicle lateral chest wall thoracodorsal artery exchange engineer flap. Hospital Course Patient presented with hidradentitis suppurativa with erythematous wounds with purulent drainage. Patient was admitted on prophylactic abx and evaluated by surgery. THe above procedures were preformed without complication. Patient had post op fever and evaluated by ID with recommendations based off cultures for doxy and kelfex. Once pain controlled, wound cultures and sensitivities available and patient cleared by surgery, she was discharged home with pain medications and abx mentioned. Discharge Discharge Disposition Patient was discharged to home Jessica Sarmiento DO Oct 24, 2018 09:07
[2018-10-24] MEDS: Docusate 100mg cap ORAL SCH (09:17)
[2018-10-24] MEDS: Heparin 5000 units/ml inj SUBQ SCH (09:25)
--- NOTE | 2018-10-24 11:38 | NUR ---
NURSE NOTES: Spoke to regarding surgical wound and new order received. Order read back and carried out.
--- NOTE | 2018-10-24 11:53 | Infectious Diseases Prog Note ---
Assessment/Plan Assessment/Plan ASSESSMENT AND PLAN: 1. bilateral axilla infected wounds and infected hidradenitis suppurativa, wound cultures with strep viridans/climate change risk assessor/diphtheroids, climate change risk assessor blood cultures - 2/4 - likely contaminant, urine culture is contaminant - s/p debridement and excision - s/p wound closure - on vancomycin - discharge on keflex plus doxycycline for one week, d/w Dr. Aguirre - wound care per plastic surgery, notes reviewed and wounds seem stable - monitor labs, creatinine - fevers and leukocytosis better, chest x-ray - negative - surveillance blood cultures - negative 2. No other significant past medical history. 3. Pain management per primary team and Surgery. 4. Wound care per Surgery. 5. Anemia. 6. No known allergies. 7. Social history is negative. 8. Family history is noncontributory. 9. MAR was noted. 10. Case discussed with RN. 11. Continue treatment per primary consultants. Subjective Constitutional: Reports: fatigue; Denies: fever HEENT: Denies: congestion Respiratory: Denies: shortness of breath Cardiovascular: Denies: chest pain Gastrointestinal/Abdominal: Denies: nausea, vomiting Genitourinary: Reports: other - no saha ; Denies: dysuria, hematuria Neurologic: Denies: headache Psychiatric: Denies: depression Skin: Denies: rash Hematologic: Denies: bleeding Musculoskeletal: Reports: pain - controlled Allergies: Coded Allergies: No Known Allergies (Unverified , 10/11/18) Objective Vital Signs Last 24 Hour Vital Signs Date Time Temp Pulse Resp B/P (MAP) Pulse Ox O2 Delivery O2 Flow Rate FiO2 10/24/18 09:00 Room Air 10/24/18 08:00 97.9 72 20 147/71 (96) 99 10/24/18 04:00 98.2 75 20 140/66 (90) 97 10/24/18 00:00 98.1 82 20 142/73 (96) 98 10/23/18 21:00 Room Air 10/23/18 20:00 98.0 85 20 153/88 (109) 100 10/23/18 16:18 97.9 97 20 123/63 (83) 99 10/23/18 11:59 97.7 73 18 134/75 (94) 99 Height (Feet): 5 Height (Inches): 2.00 Weight (Pounds): 201 General Appearance: no acute distress HEENT: normocephalic, atraumatic, anicteric, EOMI, supple, no JVD Respiratory/Chest: lungs clear, normal breath sounds, no respiratory distress Cardiovascular: normal rate, regular rhythm, no gallop/murmur, no JVD Abdomen: normal bowel sounds, soft, non tender, no organomegaly, non distended Genitourinary: other - no saha Extremities: no cyanosis Skin: no rash, other - left back side surgical wound noted, open, granulating, no pus, no odor 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, alert, responsive Lymphatic: no neck adenopathy Musculoskeletal: no effusion Objective Microbiology Date/Time Source Procedure Growth Status 10/11/18 13:58 Blood Blood Culture - Final NO GROWTH AFTER 5 DAYS Complete 10/19/18 00:00 Urine,Clean Catch Urine Culture - Preliminary NO GROWTH Resulted 10/12/18 12:58 Axilla Right Gram Stain - Final Complete 10/12/18 12:58 Aerobic Culture - Final Diphtheroids Staphylococcus Sp Coag Neg Streptococcus Viridans Complete 10/12/18 12:58 Axilla Right Anaerobic Culture - Final NO ANAEROBES ISOLATED Complete Chest x-ray - 10/20/18 - nad, report noted Microbiology Date/Time Source Procedure Growth Status 10/21/18 12:50 Blood Blood Culture - Preliminary NO GROWTH AFTER 48 HOURS Resulted 10/21/18 12:40 Blood Blood Culture - Preliminary NO GROWTH AFTER 48 HOURS Resulted Labs Test 10/23/18 06:29 Sodium Level 140 MMOL/L (136-145) Potassium Level 3.8 MMOL/L (3.5-5.1) Chloride Level 106 MMOL/L (98-107) Carbon Dioxide Level 22 MMOL/L (21-32) Anion Gap 12 mmol/L (5-15) Blood Urea Nitrogen 8 mg/dL (7-18) Creatinine 0.7 MG/DL (0.55-1.30) Estimat Glomerular Filtration Rate > 60 mL/min (>60) Glucose Level 90 MG/DL (74-106) Calcium Level 8.4 MG/DL (8.5-10.1) wbc - 9.7 hgb - 9.6 Current Medications Medications (Trade) Dose Ordered Sig/Lalit Route PRN Reason Start Time Stop Time Status Last Admin Dose Admin Acetaminophen (Tylenol) 650 mg Q4H PRN ORAL FEVER 10/17/18 12:00 11/16/18 11:59 10/20/18 09:40 Bisacodyl (Dulcolax) 10 mg DAILYPRN PRN RECTAL Constipation 10/23/18 15:45 11/22/18 15:44 Dextrose (Dextrose 50%) 25 ml Q30M PRN IV Hypoglycemia 10/11/18 18:30 11/10/18 18:29 Dextrose (Dextrose 50%) 50 ml Q30M PRN IV Hypoglycemia 10/11/18 18:30 11/10/18 18:29 Diphenhydramine HCl (Benadryl) 12.5 mg Q6H PRN IVP Itching/Pruritis 10/12/18 11:15 11/11/18 11:14 Docusate Sodium (Colace) 100 mg TWICE A DAY ORAL 10/17/18 18:00 11/16/18 17:59 10/24/18 09:17 Heparin Sodium (Porcine) (Heparin 5000 units/ml) 5,000 units EVERY 12 HOURS SUBQ 10/17/18 21:00 11/16/18 20:59 10/24/18 09:25 Magnesium Hydroxide (Mom) 30 ml DAILYPRN PRN ORAL Constipation 10/16/18 13:15 11/15/18 13:14 10/21/18 22:20 Ondansetron HCl (Zofran) 4 mg Q6H PRN IVP Nausea & Vomiting 10/17/18 12:00 11/16/18 11:59 10/18/18 21:20 Oxycodone HCl (Roxicodone) 10 mg Q4H PRN ORAL Breakthrough Pain 10/21/18 16:05 10/28/18 16:04 Oxycodone HCl (Roxicodone) 15 mg Q6HR ORAL 10/21/18 18:00 10/28/18 17:59 10/24/18 06:12 Sennosides (Senokot) 17.2 mg QHS ORAL 10/16/18 21:00 11/15/18 20:59 10/22/18 21:38 Vancomycin HCl (Vanco rx to dose) 1 ea DAILY PRN MISC Per rx protocol 10/15/18 12:15 11/14/18 12:14 Vancomycin HCl 750 mg/Sodium Chloride 275 ml @ 183.333 mls/hr Q6H IVPB 10/20/18 16:00 10/25/18 15:59 10/24/18 09:18 Zolpidem Tartrate (Ambien) 5 mg QHS PRN ORAL Insomnia 10/17/18 21:00 10/24/18 20:59 10/23/18 20:52 Nate Gomes MD Oct 24, 2018 11:53
[2018-10-24 12:00] VITALS: BP 136/86
[2018-10-24] MEDS ORDERED: PERCOCET 5-3251 EACH ORAL (13:04)
[2018-10-24] MEDS ORDERED: CEPHALEXIN500 MG ORAL (13:05)
[2018-10-24] MEDS ORDERED: AMBIEN10 MG ORAL (13:06)
[2018-10-24] MEDS ORDERED: DOXYCYCLINE HY100 M2 PO (13:08)
--- NOTE | 2018-10-24 13:30 | NUR ---
NURSE NOTES: Patient discharged with family member in stable condition. Discharge instruction given to patient and verbalized under standing. Belonging and prescription medication given to patient. Dressing change supplies provided. Home health information provided. IV and ID removed. Patient ambulated out with all personal belongings with steady gait.
--- NOTE | 2018-10-24 15:12 | NUR ---
CASE MANAGEMENT:REVIEW 10/22/18 SI: POD #10 AND POD #5 RADICAL EXCISION OF LT AXILLARY TISSUE SPIKED TEMP LAST NIGHT TO 100.0 98.1 88 21 97/72 99% ON RA IS: IV VANCOMYCIN Q6HRS REPOSSESSOR DILAUDID HEPARIN SQ Q12 : MED/SURG STATUS 3 [facility] DCP: WILL RETURN HOME TO [place] PLAN: PATIENT WILL REQUIRE HOME HEALTH SERVICES FOR WOUND CARE ONCE SHE RETURNS TO [place] RECEIVED CALL FROM MARLENY WITH [facility] T: [phone]...THEY WILL SERVICE PATIENT WHEN SHE RETURNS TO [place] 10/23/18 SI: POD #11 AND POD #6 RADICAL EXCISION OF LT AXILLARY TISSUE 99.3 94 18 139/78 100% ON RA IS: IV VANCOMYCIN Q6HRS REPOSSESSOR DILAUDID HEPARIN SQ Q12 : MED/SURG STATUS 3 [facility] DCP: WILL RETURN HOME TO [place] PLAN: [facility] T: [phone]...THEY WILL SERVICE PATIENT WHEN SHE RETURNS TO [place] 10/24/18 DISCHARGED BACK TO [place] CALLED AND CONFIRMED HOME HEALTH ~ START OF SERVICE WILL BE TOMORROW
--- NOTE | 2018-10-24 16:30 | NUR ---
*-* INSURANCE *-* UPDATED CLINICALS AND REVIEWS HAVE BEEN FAXED: [facility] T: [phone] F: [phone]
== END 2018-10-24 13:30 | disposition home health service (06) | DRG 575 ==
LOC: EMR 13:02 → EDBEDREQ 16:47 → 3E 16:58
PROC: 0JBD0ZZ Excision of Right Upper Arm Subcutaneous Tissue and Fascia, Open Approach (ICD-10-PCS; principal; 2018-10-12 11:30)
PROC: 0J8 Subcutaneous Tissue and Fascia, Division (ICD-10-PCS; principal; 2018-10-12 11:30)
PROC: 0JBF0ZZ Excision of Left Upper Arm Subcutaneous Tissue and Fascia, Open Approach (ICD-10-PCS; principal; 2018-10-12 11:30)
PROC: 0JX60ZC Transfer Chest Subcutaneous Tissue and Fascia with Skin, Subcutaneous Tissue and Fascia, Open Approach (ICD-10-PCS; 2018-10-17)
DX: L03.112 Cellulitis of left axilla (principal); L73.2 Hidradenitis suppurativa; L03.111 Cellulitis of right axilla; R50.9 Fever, unspecified
CPT/HCPCS: 36415; 71045; 80048; 80053; 80202; 81003; 81025; 83735; 84100; 85025; 85610; 85730; 86850; 86900; 86901; 87040; 87070; 87075; 87086; 87181; 87205; 94003; 94150; 99285; J2250; J2405; J2710; J2765